=== PATIENT | female | born 1955 | race Two or more races ===

== ENCOUNTER 2020-01-21 08:20 | Outpatient (REF) | payer MEDICARE, SELFPAY ==
[2020-01-21 10:49] LABS: Alanine Aminotransferase 28 U/L (0-31); Albumin Level 4.4 g/dL (3.5-5.0); Alkaline Phosphatase 58 U/L (39-117); Anion Gap 13 (12-20); Aspartate Amino Transferase 24 U/L (5-31); Bilirubin Total < 0.2 mg/dL (0.0-1.0); Blood Urea Nitrogen 29 mg/dL (9-16); Calcium 8.3 mg/dL (8.4-10.2); Carbon Dioxide 25 mmol/L (22-29); Chloride 107 mmol/L (96-108); Estimated Glomerular Filt Rate 58; Glucose Fasting 87 mg/dL (60-99); Sodium 141 mmol/L (135-145); Total Protein 6.8 g/dL (6.5-8.0)
[2020-01-21 11:10] LABS: Free T4 (Free Thyroxine) 0.94 ng/dL (0.71-1.85); Thyroid Stimulating Hormone 2.96 mIU/mL (0.32-4.0); Vitamin B12 305 pg/mL (200-900); Vitamin D 25-OH Total 41.4 ng/mL (>30)
[2020-01-22 22:57] LABS: Calcium (PTHI) 9.1 mg/dL (8.6-10.4); PTHI 12 pg/mL (14-64)
[2020-01-26 21:16] LABS: N-Telopeptide 22 (see note); NTXCreaRU 86 mg/dL (20-275)
== END 2020-01-21 08:21 | disposition home or self-care (01) ==
LOC: HO.10HDL 08:20
PROVIDERS: Visit Provider Internal Medicine Endocrinology, Diabetes & Metabolism
DX: E21.0 Primary hyperparathyroidism (principal); E53.8 Deficiency of other specified B group vitamins; E04.2 Nontoxic multinodular goiter; Z86.39 Personal history of other endocrine, nutritional and metabolic disease
CPT/HCPCS: 80053; 82306; 82523; 82607; 83970; 84439; 84443

== ENCOUNTER → 2020-01-28 12:00 | Outpatient (BNVA) | payer MEDICARE, SELFPAY | PROVIDERS: PCP Internal Medicine; Referring Provider Internal Medicine; Visit Provider Internal Medicine Endocrinology, Diabetes & Metabolism | DX: Z13.89 Encounter for screening for other disorder (principal) | CPT/HCPCS: 99212 ==

== ENCOUNTER 2020-02-06 08:13 | Outpatient (REF) | payer MEDICARE, SELFPAY ==
[2020-02-06 11:42] LABS: Albumin Level 4.3 g/dL (3.5-5.0); Calcium 9.7 mg/dL (8.4-10.2); Magnesium 1.8 mg/dL (1.6-2.6); Phosphorus 4.4 mg/dL (2.7-4.5)
[2020-02-08 11:26] LABS: Calcium (PTHI) 9.9 mg/dL (8.6-10.4); PTHI 3 pg/mL (14-64)
[2020-02-11 12:02] LABS: VITAMIN D (1,25 OH) D3 22 pg/mL; Vit D (1,25-Dihydroxy) Total 22 pg/mL (18-72); Vitamin D (1,25 OH) D2 <8 pg/mL
== END 2020-02-06 08:14 | disposition home or self-care (01) ==
LOC: HO.10HDL 08:13
PROVIDERS: Visit Provider Internal Medicine Endocrinology, Diabetes & Metabolism
DX: Z86.39 Personal history of other endocrine, nutritional and metabolic disease (principal)
CPT/HCPCS: 82040; 82310; 82652; 83735; 83970; 84100

== ENCOUNTER 2020-02-07 13:24 | Outpatient (REF) | payer MEDICARE, SELFPAY ==
[2020-02-07 14:48] LABS: Creatinine, mg/dL 54.43
[2020-02-07 16:04] LABS: Creatinine, 24Hr Urine 0.8 G/Day (1.0-2.0); Total Volume 24 Hour Urine 1425 mL
[2020-02-09 17:16] LABS: Calcium, 24 Hr Urine 265 mg/24 h; Calcium/Creatinine Ratio 321 mg/g creat (30-275); Creatinine 24Hr Urine 0.83 g/24 h (0.50-2.15)
== END 2020-02-07 13:25 | disposition home or self-care (01) ==
LOC: HO.10HDLNP 13:24
PROVIDERS: Visit Provider Internal Medicine Endocrinology, Diabetes & Metabolism
DX: Z86.39 Personal history of other endocrine, nutritional and metabolic disease (principal)
CPT/HCPCS: 82340; 82570

== ENCOUNTER 2020-03-31 08:18 | Outpatient (REF) | payer MEDICARE, MEDICAID, SELFPAY ==
[2020-03-31 10:11] LABS: MANUAL DIFF FLAG NO
[2020-03-31 10:16] LABS: Basophils Percent Auto 0.3 % (0-2); Eosinophils Absolute Auto 0.1 X10*3/uL (0.0-0.4); Eosinophils Percent Auto 2.1 % (0-4); Hematocrit 35.1 % (37-47); Imm Gran Abs Auto 0.02 X10*3/uL (0.00-0.03); Imm Gran Pct Auto 0.3 % (0.0-0.4); Lymphocytes Absolute Auto 2.7 X10*3/uL (1.2-4.9); Lymphocytes Percent Auto 43.7 % (20-40); Mean Corpuscular HGB Conc 31.3 g/dl (31.0-35.0); Mean Corpuscular Hemoglobin 29.5 pg (27.0-33.0); Mean Corpuscular Volume 94.1 fL (80-98); Mean Platelet Volume 12.1 fL (9.4-12.3); Monocytes Absolute Auto 0.4 X10*3/uL (0.1-1.2); Monocytes Percent Auto 6.5 % (2-11); Neutrophils Absolute Auto 2.9 X10*3/uL (2.0-8.3); Neutrophils Percent Auto 47.1 % (45-73); Platelet Count 318 X10*3/uL (160-400); Red Blood Count 3.73 X10*6/uL (4.20-5.50); Red Cell Distribution Width 12.6 % (11.0-16.0); White Blood Count 6.1 X10*3/uL (4.8-10.8)
[2020-03-31 10:31] LABS: Cholesterol 119 mg/dL; HDL Cholesterol 57 mg/dL; LDL Cholesterol Calculated 49 mg/dl; Triglycerides 68 mg/dL
[2020-03-31 10:44] LABS: Alanine Aminotransferase 26 U/L (0-31); Albumin Level 4.6 g/dL (3.5-5.0); Alkaline Phosphatase 59 U/L (39-117); Anion Gap 11 (12-20); Aspartate Amino Transferase 23 U/L (5-31); Bilirubin Total 0.3 mg/dL (0.0-1.0); Blood Urea Nitrogen 25 mg/dL (9-16); Calcium 9.5 mg/dL (8.4-10.2); Carbon Dioxide 28 mmol/L (22-29); Chloride 109 mmol/L (96-108); Estimated Glomerular Filt Rate > 60; Glucose Fasting 89 mg/dL (60-99); Magnesium 1.8 mg/dL (1.6-2.6); Phosphorus 4.2 mg/dL (2.7-4.5); Potassium 4.2 mmol/l (3.3-5.1); Sodium 144 mmol/L (135-145); Total Protein 6.9 g/dL (6.5-8.0)
[2020-03-31 11:07] LABS: Vitamin D 25-OH Total 41.7 ng/mL (>30)
[2020-03-31 13:46] LABS: Folate 10.7 ng/mL (> or = 4.0); Vitamin B12 261 pg/mL (200-900)
[2020-04-01 21:42] LABS: Calcium (PTHI) 9.9 mg/dL (8.6-10.4); PTHI 9 pg/mL (14-64)
[2020-04-05 01:08] LABS: VITAMIN D (1,25 OH) D3 19 pg/mL; Vit D (1,25-Dihydroxy) Total 19 pg/mL (18-72); Vitamin D (1,25 OH) D2 <8 pg/mL
== END 2020-03-31 08:19 | disposition home or self-care (01) ==
LOC: HO.10HDL 08:18
PROVIDERS: Nurse Practitioner Gerontology; Absent Provider Internal Medicine; Visit Provider Internal Medicine Endocrinology, Diabetes & Metabolism
DX: E11.3299 Type 2 diabetes mellitus with mild nonproliferative diabetic retinopathy without macular edema, unspecified eye (principal); E78.00 Pure hypercholesterolemia, unspecified; E21.2 Other hyperparathyroidism; D64.9 Anemia, unspecified; E55.9 Vitamin D deficiency, unspecified; E89.2 Postprocedural hypoparathyroidism
CPT/HCPCS: 36415; 80053; 80061; 82306; 82607; 82652; 82746; 83735; 83970; 84100; 85025

== ENCOUNTER → 2020-04-11 11:32 | Outpatient (BNVA) | payer MEDICARE, SELFPAY | PROVIDERS: PCP Internal Medicine; Referring Provider Internal Medicine; Visit Provider Internal Medicine Endocrinology, Diabetes & Metabolism | DX: Z76.89 Persons encountering health services in other specified circumstances (principal) | CPT/HCPCS: Q3014 ==

== ENCOUNTER 2020-07-21 07:32 | Outpatient (REF) | payer MEDICARE, MEDICAID, SELFPAY ==
[2020-07-21 10:23] LABS: MANUAL DIFF FLAG NO
[2020-07-21 10:35] LABS: Basophils Percent Auto 0.5 % (0-2); Eosinophils Absolute Auto 0.3 X10*3/uL (0.0-0.4); Eosinophils Percent Auto 3.9 % (0-4); Hematocrit 34.3 % (37-47); Hemoglobin 10.8 g/dl (12.0-16.0); Imm Gran Abs Auto 0.01 X10*3/uL (0.00-0.03); Imm Gran Pct Auto 0.2 % (0.0-0.4); Lymphocytes Absolute Auto 2.9 X10*3/uL (1.2-4.9); Lymphocytes Percent Auto 45.6 % (20-40); Mean Corpuscular HGB Conc 31.5 g/dl (31.0-35.0); Mean Corpuscular Hemoglobin 29.5 pg (27.0-33.0); Mean Corpuscular Volume 93.7 fL (80-98); Mean Platelet Volume 11.4 fL (9.4-12.3); Monocytes Absolute Auto 0.5 X10*3/uL (0.1-1.2); Monocytes Percent Auto 7.6 % (2-11); Neutrophils Absolute Auto 2.7 X10*3/uL (2.0-8.3); Neutrophils Percent Auto 42.2 % (45-73); Platelet Count 358 X10*3/uL (160-400); Red Blood Count 3.66 X10*6/uL (4.20-5.50); Red Cell Distribution Width 13.2 % (11.0-16.0); White Blood Count 6.3 X10*3/uL (4.8-10.8)
[2020-07-21 11:04] LABS: Alanine Aminotransferase 18 U/L (0-31); Albumin Level 4.5 g/dL (3.5-5.0); Alkaline Phosphatase 55 U/L (39-117); Anion Gap 12 (12-20); Aspartate Amino Transferase 21 U/L (5-31); Bilirubin Total 0.5 mg/dL (0.0-1.0); Blood Urea Nitrogen 23 mg/dL (9-16); Calcium 9.6 mg/dL (8.4-10.2); Carbon Dioxide 27 mmol/L (22-29); Chloride 108 mmol/L (96-108); Cholesterol 177 mg/dL; Estimated Glomerular Filt Rate > 60; Glucose Fasting 90 mg/dL (60-99); HDL Cholesterol 67 mg/dL; Iron 72 mcg/dL (30-160); LDL Cholesterol Calculated 93 mg/dl; Lactate Dehydrogenase 134 U/L (122-220); Magnesium 1.9 mg/dL (1.6-2.6); Percent Iron Saturation 23 % (15-50); Phosphorus 4.6 mg/dL (2.7-4.5); Potassium 4.2 mmol/L (3.3-5.1); Sodium 143 mmol/L (135-145); Total Iron Binding Capacity 310 mcg/dL (228-428); Total Protein 6.8 g/dL (6.5-8.0); Triglycerides 88 mg/dL; Unsaturated Iron Binding 238 ug/dL
[2020-07-21 11:11] LABS: TSH reflex Free T4 2.94 uIU/mL (0.32-4.0)
[2020-07-21 11:23] LABS: Vitamin D 25-OH Total 40.1 ng/mL (>30)
[2020-07-21 11:30] LABS: Folate 12.8 ng/mL (> or = 4.0); Vitamin B12 187 pg/mL (200-900)
[2020-07-25 16:17] LABS: VITAMIN D (1,25 OH) D3 12 pg/mL; Vit D (1,25-Dihydroxy) Total 12 pg/mL (18-72); Vitamin D (1,25 OH) D2 <8 pg/mL
== END 2020-07-21 07:33 | disposition home or self-care (01) ==
LOC: HO.10HDL 07:32
PROVIDERS: Absent Provider Internal Medicine Endocrinology, Diabetes & Metabolism; Visit Provider Internal Medicine
DX: E53.8 Deficiency of other specified B group vitamins (principal); E11.9 Type 2 diabetes mellitus without complications; E78.5 Hyperlipidemia, unspecified; E89.2 Postprocedural hypoparathyroidism; E04.2 Nontoxic multinodular goiter
CPT/HCPCS: 36415; 80053; 80061; 82306; 82607; 82652; 82746; 83540; 83615; 83735; 84100; 84443; 85025

== ENCOUNTER → 2020-07-25 09:16 | Outpatient (BNVA) | payer MEDICARE, MEDICAID, SELFPAY | PROVIDERS: PCP Internal Medicine; Visit Provider Internal Medicine Endocrinology, Diabetes & Metabolism | DX: E89.2 Postprocedural hypoparathyroidism (principal); M81.0 Age-related osteoporosis without current pathological fracture; E04.2 Nontoxic multinodular goiter; E53.8 Deficiency of other specified B group vitamins; Z86.39 Personal history of other endocrine, nutritional and metabolic disease | CPT/HCPCS: 99212 ==

== ENCOUNTER 2020-09-05 09:41 | Outpatient (REF) | payer MEDICARE, MEDICAID, SELFPAY ==
[2020-09-05 13:45] LABS: Glucose Urine UA NEG (NEG); Leukocyte Esterase Urine NEG (NEG); Nitrite Urine POS (NEG); PH 7.5 (5.0-8.0); UACC Culture Trigger YES; Urine Blood NEG (NEG); Urine Ketones NEG (NEG); Urine Protein NEG (NEG-TRACE)
[2020-09-05 13:55] LABS: Appearance Urine CLOUDY; Color Urine YELLOW
[2020-09-05 14:24] LABS: Amorphous Sediment Urine 1+ /LPF; RBC Urine 0-2 /HPF (0)
== END 2020-09-05 09:42 | disposition home or self-care (01) ==
LOC: HO.10HDL 09:41
PROVIDERS: Internal Medicine; Visit Provider Internal Medicine
DX: R30.0 Dysuria (principal)
CPT/HCPCS: 81001; 81003; 87086

== ENCOUNTER 2020-10-02 08:54 | Outpatient (REF) | payer MEDICARE, MEDICAID, SELFPAY ==
[2020-10-02 11:01] LABS: Alanine Aminotransferase 17 U/L (0-31); Albumin Level 4.3 g/dL (3.5-5.0); Alkaline Phosphatase 57 U/L (39-117); Anion Gap 12 (12-20); Aspartate Amino Transferase 21 U/L (5-31); Bilirubin Total 0.4 mg/dL (0.0-1.0); Blood Urea Nitrogen 19 mg/dL (9-16); Calcium 9.1 mg/dL (8.4-10.2); Carbon Dioxide 23 mmol/L (22-29); Chloride 112 mmol/L (96-108); Estimated Glomerular Filt Rate > 60; Glucose Fasting 87 mg/dL (60-99); Phosphorus 3.8 mg/dL (2.7-4.5); Potassium 4.4 mmol/L (3.3-5.1); Sodium 143 mmol/L (135-145); Total Protein 6.7 g/dL (6.5-8.0)
[2020-10-02 16:09] LABS: Creatinine, 24Hr Urine 0.7 G/Day (1.0-2.0); Total Volume 24 Hour Urine 1750 mL
[2020-10-03 23:56] LABS: Calcium, 24 Hr Urine 74 mg/24 h; Calcium/Creatinine Ratio 95 mg/g creat (30-275); Creatinine 24Hr Urine 0.77 g/24 h (0.50-2.15)
[2020-10-06 09:32] LABS: PTHI 23 pg/mL (14-64)
[2020-10-07 02:46] LABS: VITAMIN D (1,25 OH) D3 36 pg/mL; Vit D (1,25-Dihydroxy) Total 36 pg/mL (18-72); Vitamin D (1,25 OH) D2 <8 pg/mL
== END 2020-10-02 08:55 | disposition home or self-care (01) ==
LOC: HO.10HDL 08:54
PROVIDERS: Visit Provider Internal Medicine Endocrinology, Diabetes & Metabolism
DX: E89.2 Postprocedural hypoparathyroidism (principal); E04.2 Nontoxic multinodular goiter; E53.8 Deficiency of other specified B group vitamins; M81.8 Other osteoporosis without current pathological fracture; Z86.39 Personal history of other endocrine, nutritional and metabolic disease
CPT/HCPCS: 36415; 80053; 82306; 82340; 82570; 82652; 83735; 83970; 84100; 99212

== ENCOUNTER 2020-12-01 08:19 | Outpatient (REF) | payer MEDICARE, MEDICAID, SELFPAY ==
[2020-12-01 10:53] LABS: MANUAL DIFF FLAG NO
[2020-12-01 11:01] LABS: Basophils Percent Auto 0.5 % (0-2); Eosinophils Absolute Auto 0.1 X10*3/uL (0.0-0.4); Eosinophils Percent Auto 1.4 % (0-4); Hematocrit 35.1 % (37-47); Hemoglobin 11.3 g/dl (12.0-16.0); Imm Gran Abs Auto 0.02 X10*3/uL (0.00-0.03); Imm Gran Pct Auto 0.3 % (0.0-0.4); Lymphocytes Absolute Auto 2.3 X10*3/uL (1.2-4.9); Lymphocytes Percent Auto 39.9 % (20-40); Mean Corpuscular HGB Conc 32.2 g/dl (31.0-35.0); Mean Corpuscular Hemoglobin 29.4 pg (27.0-33.0); Mean Corpuscular Volume 91.4 fL (80-98); Monocytes Absolute Auto 0.4 X10*3/uL (0.1-1.2); Monocytes Percent Auto 6.3 % (2-11); Neutrophils Percent Auto 51.6 % (45-73); Platelet Count 305 X10*3/uL (160-400); Red Blood Count 3.84 X10*6/uL (4.20-5.50); Red Cell Distribution Width 12.8 % (11.0-16.0); White Blood Count 5.8 X10*3/uL (4.8-10.8)
[2020-12-01 11:26] LABS: Cholesterol 114 mg/dL; HDL Cholesterol 54 mg/dL; LDL Cholesterol Calculated 48 mg/dl; Triglycerides 60 mg/dL
[2020-12-01 11:31] LABS: Creatinine Urine 343.48 mg/dL; Microalbum/Creatinine Ratio Ur 8.1 ug/mg cr
[2020-12-01 11:49] LABS: Thyroid Stimulating Hormone 1.47 uIU/mL (0.32-4.0)
[2020-12-01 11:56] LABS: Vitamin B12 878 pg/mL (200-900)
[2020-12-04 11:27] LABS: Parietal Cell Antibody <=20.0 Unit (<=20.0)
[2020-12-04 17:42] LABS: Intrinsic Factor Antibodies Negative (Negative)
[2020-12-07 16:01] LABS: Vitamin D 25-OH, D2 <4 ng/mL; Vitamin D 25-OH, D3 33 ng/mL; Vitamin D 25-OH, Total 33 ng/mL (30-100)
== END 2020-12-01 08:20 | disposition home or self-care (01) ==
LOC: HO.10HDL 08:19
PROVIDERS: Visit Provider Internal Medicine
DX: E53.8 Deficiency of other specified B group vitamins (principal); E55.9 Vitamin D deficiency, unspecified; R41.89 Other symptoms and signs involving cognitive functions and awareness; E11.9 Type 2 diabetes mellitus without complications; E78.5 Hyperlipidemia, unspecified; D64.9 Anemia, unspecified
CPT/HCPCS: 36415; 80061; 82043; 82306; 82607; 82746; 83516; 84443; 85025; 86340

== ENCOUNTER 2020-12-19 11:12 | Outpatient (REF) | payer MEDICARE, MEDICAID, SELFPAY ==
[2020-12-19 14:37] LABS: Thyroid Stimulating Hormone 1.78 uIU/mL (0.32-4.0)
[2020-12-19 15:15] LABS: Folate 10.4 ng/mL (> or = 4.0); Vitamin B12 555 pg/mL (200-900)
== END 2020-12-19 11:13 | disposition home or self-care (01) ==
LOC: HO.10HDL 11:12
PROVIDERS: Visit Provider Psychiatry & Neurology Neurology
DX: G43.909 Migraine, unspecified, not intractable, without status migrainosus (principal)
CPT/HCPCS: 36415; 82607; 82746; 84443

== ENCOUNTER 2020-12-24 13:29 | Outpatient (REF) | payer MEDICARE, MEDICAID, SELFPAY ==
--- NOTE | ~2020-12-24 | CT_ITS ---
EXAMINATION: CT HEAD WITHOUT CONTRAST CLINICAL INFORMATION: Mild cognitive abdomen COMPARISON: Previous head CT October 2016 and brain MRI 2017 TECHNIQUE: Contiguous axial imaging was performed from the skull base to vertex without intravenous administration of contrast. This CT examination was performed using dose optimization techniques as appropriate, variously including the following: *Automated exposure control *Adjustment of mA and/or kV according to patient size (this includes techniques or standardized protocols for targeted exams where dose is matched to indication/reason for exam; i.e. extremities or head) *Use of iterative reconstruction technique DLP: 630 mGy-cm FINDINGS: There is no evidence of an extra-axial collection. There is no evidence of intra or extra-axial hemorrhage. The ventricles and extra-axial CSF spaces are appropriate. There is mild nonspecific periventricular white matter disease. No mass, mass effect or infarct is seen. Review of bone windows is normal. Visualized paranasal sinuses, mastoid air cells and middle ears are clear. CT/CT head/brain wo con IMPRESSION: Mild nonspecific periventricular white matter disease otherwise unremarkable exam.
== END 2020-12-24 13:30 | disposition home or self-care (01) ==
LOC: HO.CT 13:29
PROVIDERS: Visit Provider Psychiatry & Neurology Neurology
DX: G31.84 Mild cognitive impairment of uncertain or unknown etiology (principal)
CPT/HCPCS: 70450

== ENCOUNTER 2021-02-16 10:28 | Outpatient (REF) | payer MEDICARE, MEDICAID, SELFPAY ==
--- NOTE | ~2021-02-16 | MM_ITS ---
EXAMINATION: MM SCREENING DIGITAL BREAST TOMOSYNTHESIS, BILATERAL CLINICAL INFORMATION: Screening. Asymptomatic. The lifetime risk of breast cancer based on the Tyrer-Cuzick Model is 5%. COMPARISON: Mammography: 12/19/2018, 11/30/2017, 11/15/2016 TECHNIQUE: Digital breast tomosynthesis is performed in both the craniocaudal and mediolateral oblique views along with computer-aided detection (CAD). Synthesized 2D images are generated from the tomosynthesis. Additional right MLO view is provided. FINDINGS: There are scattered areas of fibroglandular density (ACR BI-RADS breast composition Category b). There are no significant masses, abnormal calcifications, or other abnormalities. The axilla and skin contours are unremarkable. No significant changes. MM/MM tomosynthesis screening BI IMPRESSION: No mammographic evidence of malignancy. ASSESSMENT: BI-RADS 1: Negative RECOMMENDATION: Routine annual mammography screening. This patient's information was entered into a reminder system with a target due date for their next mammogram.
== END 2021-02-16 10:29 | disposition home or self-care (01) ==
LOC: HO.MAMMO 10:28
PROVIDERS: Visit Provider Internal Medicine
DX: Z12.31 Encounter for screening mammogram for malignant neoplasm of breast (principal)
CPT/HCPCS: 77063; 77067

== ENCOUNTER → 2021-02-20 09:53 | Outpatient (BNVA) | payer MEDICARE, MEDICAID, SELFPAY | PROVIDERS: PCP Internal Medicine; Referring Provider Internal Medicine; Visit Provider Nurse Practitioner Family | DX: M89.49 Other hypertrophic osteoarthropathy, multiple sites (principal); M79.642 Pain in left hand; M79.641 Pain in right hand | CPT/HCPCS: 99212 ==

== ENCOUNTER 2021-04-16 08:15 | Outpatient (REF) | payer MEDICARE, MEDICAID, SELFPAY ==
[2021-04-16 10:49] LABS: Alanine Aminotransferase 17 U/L (0-31); Albumin Level 4.5 g/dL (3.5-5.0); Alkaline Phosphatase 65 U/L (39-117); Anion Gap 11 (12-20); Aspartate Amino Transferase 22 U/L (5-31); Bilirubin Total 0.5 mg/dL (0.0-1.0); Blood Urea Nitrogen 22 mg/dL (9-16); Calcium 9.5 mg/dL (8.4-10.2); Carbon Dioxide 25 mmol/L (22-29); Chloride 108 mmol/L (96-108); Cholesterol 142 mg/dL; Estimated Glomerular Filt Rate > 60; Glucose Fasting 93 mg/dL (60-99); HDL Cholesterol 57 mg/dL; LDL Cholesterol Calculated 66 mg/dl; Sodium 140 mmol/L (135-145); Total Protein 7.3 g/dL (6.5-8.0); Triglycerides 98 mg/dL
[2021-04-17 14:07] LABS: Calcium (PTHI) 9.6 mg/dL (8.6-10.4); PTHI 19 pg/mL (14-64)
== END 2021-04-16 08:16 | disposition home or self-care (01) ==
LOC: HO.10HDL 08:15
PROVIDERS: Absent Provider Internal Medicine Endocrinology, Diabetes & Metabolism; Visit Provider Internal Medicine
DX: I10 Essential (primary) hypertension (principal); E78.5 Hyperlipidemia, unspecified; E89.2 Postprocedural hypoparathyroidism
CPT/HCPCS: 36415; 80053; 80061; 83970

== ENCOUNTER → 2021-07-03 07:53 | Outpatient (BNVA) | payer MEDICARE, MEDICAID, SELFPAY | PROVIDERS: PCP Internal Medicine; Visit Provider Internal Medicine Endocrinology, Diabetes & Metabolism | DX: E89.2 Postprocedural hypoparathyroidism (principal); E04.2 Nontoxic multinodular goiter | CPT/HCPCS: 99212 ==

== ENCOUNTER 2021-07-13 10:17 | Outpatient (REF) | payer MEDICARE, MEDICAID, SELFPAY ==
--- NOTE | ~2021-07-13 | US_ITS ---
EXAMINATION: US THYROID CLINICAL INFORMATION: Nontoxic multinodular goiter. COMPARISON: US thyroid 10/30/2019 and 09/18/2018. US-guided thyroid biopsy 11/03/2017. TECHNIQUE: Linear transducer grayscale and color Doppler examination with attention to the region of the thyroid. FINDINGS: SIZE: Measurements of the thyroid lobes and nodules are given in sagittal, anteroposterior and transverse dimensions respectively. Right Thyroid Lobe: 5.9 x 1.6 x 1.8 cm, volume 8.6 mL. Previously 5.0 x 1.6 x 1.7 cm, volume 7.1 mL. Parenchyma: The gland echotexture is homogeneous. Thyroid vascularity is normal. Left Thyroid Lobe: 4.8 x 1.5 x 1.9 cm, volume 7.4 mL. Previously 5.0 x 1.4 x 1.9 cm, volume 6.9 mL. Parenchyma: The gland echotexture is homogeneous. Thyroid vascularity is normal. Isthmus: 0.2 cm in maximum AP dimension. Previously 0.2 cm. Estimated total number of nodules greater than or equal to 1 cm: 1. [employer] nodules are described as follows: 1. Location: Right mid/inferior. Size: 1.2 x 0.9 x 1.1 cm, volume 0.7 mL. Previously: 0.9 x 0.7 x 1.0 cm, volume 0.3 mL. Nodule characteristics: Composition: Solid/almost completely solid (2). Echogenicity: Hypoechoic (2). Shape: Not taller than wide (0). Margins: Ill-defined (0). Echogenic Foci: None (0). ACR TI-RADS total points: 4 ACR TI-RADS category: 4 2. Location: Right mid/lateral. Size: 0.5 x 0.5 x 0.5 cm, volume 0.07 mL. Previously: 0.6 x 0.4 x 0.5 cm, volume 0.06 mL. Nodule characteristics: Composition: Solid (2). Echogenicity: Hypoechoic (2). Shape: Not taller than wide (0). Margins: Ill-defined (0). Echogenic Foci: None (0). ACR TI-RADS total points: 4 ACR TI-RADS category: 4 3. Location: Left mid. Size: 0.5 x 0.3 x 0.3 cm, volume 0.02 mL. Previously: 0.5 x 0.2 x 0.5 cm, volume 0.03 mL. Nodule characteristics: Composition: Spongiform (0). Echogenicity: Anechoic (0). Shape: Not taller than wide (0). Margins: Smooth (0). Echogenic Foci: None (0). ACR TI-RADS total points: 0 ACR TI-RADS category: 1 4. Location: Left mid. Size: 0.5 x 0.2 x 0.4 cm, volume 0.02 mL. Previously: 0.6 x 0.3 x 0.4 cm, volume 0.04 mL. Nodule characteristics: Composition: Spongiform (0). Echogenicity: Anechoic (0). Shape: Not taller than wide (0). Margins: Smooth (0). Echogenic Foci: None (0). ACR TI-RADS total points: 0 ACR TI-RADS category: 1 NODES: No lymphadenopathy is seen in the tissue surrounding the thyroid gland. US/US thyroid IMPRESSION: There has been no significant change in thyroid nodules allowing for interobserver variability. The largest is a 1.2 cm nodule ACR do not category 4. Continued surveillance recommended.. One-year follow-up.. ACR TI-RADS RECOMMENDATION REFERENCE: Ultrasound-guided fine-needle aspiration, followup ultrasound, no further follow up. * TR1 (0 point) and TR 2 (2 points): No FNA or follow up * TR3 (3 points): FNA if more than or equal to 2.5 cm in maximum dimension, followup ultrasound in 1, 3 and 5 years if 1.5 to 2.4 cm in maximum dimension. * TR4 (4-6 points): FNA if more than or equal to 1.5 cm in maximum dimension, followup ultrasound in 1, 2, 3 and 5 years if 1 to 1.4 cm in maximum dimension. * TR5 (more than or equal to 7 points): FNA if more than or equal to 1 cm in maximum dimension, followup ultrasound every year for 5 years if 0.5 to 0.9 cm in maximum dimension. * TR3, TR4 or TR5 nodules that are below the size threshold for follow up receive no follow up.
== END 2021-07-13 10:18 | disposition home or self-care (01) ==
LOC: HO.US 10:17
PROVIDERS: Visit Provider Internal Medicine Endocrinology, Diabetes & Metabolism
DX: E04.2 Nontoxic multinodular goiter (principal)
CPT/HCPCS: 76536

== ENCOUNTER 2021-11-05 09:13 | Emergency (ER) | payer MEDICARE, MEDICAID, SELFPAY ==
--- NOTE | ~2021-11-05 | NM_ITS ---
EXAMINATION: NM LUNG IMAGE PERFUSION CLINICAL INFORMATION: Recent Covid with elevated d-dimer COMPARISON: Chest x-ray same day TECHNIQUE: Perfusion imaging only. 4 mCi technetium MAA injected intravenously. Images obtained over the lung amado in various obliquities. Exam shows fairly uniform distribution of the radionucleotide in the lungs. No segmental defect is felt to be present. NM/NM pul perfusion IMPRESSION: No segmental perfusion defect. Findings consistent with low probability for pulmonary embolism
--- NOTE | ~2021-11-05 | XR_ITS ---
EXAMINATION: XR CHEST CLINICAL INFORMATION: Cough COMPARISON: 05/19/2017 TECHNIQUE: 2 views of the chest were obtained. FINDINGS: No significant abnormality is noted involving the heart, lungs, mediastinum, bony thorax or soft tissues. XR/XR chest 2V IMPRESSION: Unremarkable examination.
[2021-11-05 09:36] VITALS: BP 133/88; PULSE 96; RESP 16; TEMP 36.7; O2SAT 98; BMI 25.4
[2021-11-05 11:16] VITALS: BP 145/70; PULSE 66; RESP 18; O2SAT 100
--- NOTE | 2021-11-05 11:28 | ECG_ITS ---
Test Reason : dyspnea Blood Pressure : / mmHG Vent. Rate : 071 BPM Atrial Rate : 071 BPM P-R Int : 166 ms QRS Dur : 088 ms QT Int : 390 ms P-R-T Axes : 024 008 029 degrees QTc Int : 423 ms Normal sinus rhythm Normal ECG When compared with ECG of 25-APR-2019 09:30, No significant change was found Referred By: Jacques Medina Electronically Signed By:CLEO RUIZ
[2021-11-05 11:51] LABS: MANUAL DIFF FLAG NO
[2021-11-05 11:57] LABS: Basophils Percent Auto 0.3 % (0-2); Eosinophils Absolute Auto 0.2 X10*3/uL (0.0-0.4); Eosinophils Percent Auto 2.7 % (0-4); Hematocrit 36.8 % (37.0-47.0); Hemoglobin 11.8 g/dl (12.0-16.0); Imm Gran Abs Auto 0.04 X10*3/uL (0.00-0.03); Imm Gran Pct Auto 0.7 % (0.0-0.4); Lymphocytes Absolute Auto 1.9 X10*3/uL (1.2-4.9); Mean Corpuscular HGB Conc 32.1 g/dl (31.0-35.0); Mean Corpuscular Hemoglobin 29.5 pg (27.0-33.0); Mean Platelet Volume 10.7 fL (9.4-12.3); Monocytes Absolute Auto 0.5 X10*3/uL (0.1-1.2); Monocytes Percent Auto 8.8 % (2-11); Neutrophils Absolute Auto 3.2 x10*3/uL (2.0-8.3); Neutrophils Percent Auto 54.5 % (45-73); Platelet Count 350 X10*3/uL (160-400); Red Cell Distribution Width 12.3 % (11.0-16.0); White Blood Count 5.8 X10*3/uL (4.8-10.8)
[2021-11-05 12:07] LABS: Partial Thromboplastin Time 31.9 SEC (26.0-36.4)
--- NOTE | 2021-11-05 12:08 | ED.GENADULT ---
HPI - General Adult General Chief complaint: Dyspnea Stated complaint: cough, diff breathing Time Seen by Provider: 11/05/21 11:27 Source: patient Mode of arrival: ambulatory Limitations: no limitations History of Present Illness HPI narrative: 66-year-old female history of hypertension, diabetes, B12 deficiency, multi noted a goiter, osteoporosis, depression presents to ED for continuous cough, yellow phlegm production, and slight left-sided upper flank pleurisy for the past two weeks. Patient states also left-sided chest pain worse on cough. Patient denies any leg swelling, calf pain, or coughing up blood. Patient tested positive for covid 2 weeks ago. Related Data Home Medications Medication Instructions Recorded Confirmed ipratropium bromide 21 mcg (0.03 intranasal 01/28/20 08/26/21 %) nasal spray ropinirole 1 mg tablet 1 mg PO DAILY 04/11/20 08/26/21 sucralfate 1 gram tablet 1 g PO DAILY 04/11/20 08/26/21 albuterol sulfate 90 mcg/actuation inhalation 07/25/20 08/26/21 aerosol inhaler epinephrine 0.3 mg/0.3 mL IM 07/25/20 08/26/21 injection, auto-injector fluticasone propionate 50 intranasal 07/25/20 08/26/21 mcg/actuation nasal spray,suspension hydroxyzine HCl 25 mg tablet mg PO PRN 02/20/21 08/26/21 ondansetron HCl 4 mg tablet 4 mg PO PRN 02/20/21 08/26/21 Previous Rx's Medication Instructions Recorded blood sugar diagnostic (FreeStyle #100 ea 12/04/20 Test strips) lancets 28 gauge (FreeStyle #100 ea 12/04/20 Lancets) acetaminophen 650 mg 650 mg PO Q8H #90 tabs 02/20/21 tablet,extended release (Tylenol Arthritis Pain) amitriptyline 25 mg tablet 25 mg PO DAILY 90 days #90 tabs 08/26/21 atorvastatin 80 mg tablet 80 mg PO DAILY 90 days #90 tabs 08/26/21 calcitriol 0.25 mcg capsule 0.25 mcg PO DAILY 90 days #90 caps 08/26/21 cyanocobalamin (vitamin B-12) 500 500 mcg sublingual DAILY 90 days 08/26/21 mcg sublingual tablet #90 tabs duloxetine 30 mg capsule,delayed 30 mg PO BID 90 days #180 caps 08/26/21 release ezetimibe 10 mg tablet 10 mg PO DAILY 90 days #90 tabs 08/26/21 gabapentin 100 mg capsule 100 mg PO BID 90 days #180 caps 08/26/21 losartan 25 mg tablet 25 mg PO DAILY 90 days #90 tabs 08/26/21 meclizine 25 mg tablet 25 mg PO DAILY PRN dizziness 90 08/26/21 days #90 tabs metformin 500 mg tablet,extended 500 mg PO BID #180 tabs 08/26/21 release 24 hr topiramate 100 mg tablet 100 mg PO BID 90 days #180 tabs 08/26/21 calcium citrate 315 mg-vitamin D3 2 tab PO DAILY 30 days #60 tabs 09/17/21 5 mcg (200 unit) tablet (Calcium Citrate + D) hydrochlorothiazide 25 mg tablet 25 mg PO DAILY 90 days #90 tabs 10/28/21 acetaminophen 325 mg-DM 10 mg/10 20 ml PO Q4H PRN cold symptoms 7 11/05/21 mL oral liquid (Delsym Cough-Sore days #180 mL Throat) Allergies Allergy/AdvReac Type Severity Reaction Status Date / Time Iodinated Contrast Media Allergy Severe ANAPHYLAXIS Verified 08/26/21 14:57 [IV CONTRAST] peanut Allergy Severe CAN'T Verified 08/26/21 14:57 BREATHE iodine Allergy Intermediate throat Verified 08/26/21 14:57 swelling lisinopril [LISINOPRIL] Allergy Intermediate COUGH, Verified 08/26/21 14:57 coughing gadobutrol [From GADAVIST] Allergy Mild HIVES Verified 08/26/21 14:57 tramadol [TRAMADOL] AdvReac Severe VOMITING Verified 08/26/21 14:57 pseudoephedrine AdvReac Intermediate HEART Verified 08/26/21 14:57 [PSEUDOEPHEDRINE] PALPITATIONS Review of Systems Review of Systems: Continuous cough, chest pain when she cough, slight pleurisy. Yes all other systems are reviewed and are negative [facility] Past Medical History Medical History B12 deficiency Cognitive impairment Diabetes mellitus Dyslipidemia Encounter for Medicare annual wellness exam Essential hypertension History of primary hyperparathyroidism Mild recurrent major depression Non-toxic multinodular goiter Osteoporosis Post-surgical hypoparathyroidism Skin lesion Surgical History S/P subtotal parathyroidectomy Status post fine needle aspiration Family History Family History Father CVD (cardiovascular disease) Myocardial infarct Mother Skin cancer Diabetes Social History Social History Housing: Apartment Alcohol intake: never Patient Tobacco Use Status: Never used Tobacco Tobacco use type: Cigarette e-Cigarette/Vaping Use: Never Used Second Hand Smoke Exposure: No Advance Directives: No Advance Directives Information Provided: No service: No Current occupational status: disabled Cognitive needs: Yes Hearing needs: No Vision needs: No Physical Exam ED Vital Signs: Vital Signs - 24 hr 11/05/21 09:36 11/05/21 11:16 11/05/21 14:17 Temperature 98.0 F Pulse Rate 96 66 64 Respiratory Rate 16 18 16 Blood Pressure 133/88 145/70 H 138/65 Pulse Oximetry 98 100 99 Oxygen Delivery Method Room Air Room Air Room Air BMI result Body Mass Index 25.4 Const General: cooperative, healthy appearing, comfortable, no acute distress, well developed, alert, awake and Physically active Orientation/consciousness: patient oriented x3 HENMT Head: Yes normal to inspection, Yes No palpable skull fracture present, Yes normocephalic, Yes atraumatic and No abrasion Eyes General: appearance normal, both eyes and all related structures Neck Neck: Yes normal visual inspection, Yes full ROM, Yes no lymphadenopathy, Yes no meningeal signs, Yes trachea midline, Yes supple, No anterior neck swelling and No tender Chest Chest palpation & inspection: normal inspection of the chest Chest/axillae images: 1. Positive for tenderness on palpation and range of motion of left upper extremity. Negative for any rash. Negative for crepitus ecchymosis Resp Effort & Inspection: normal respiratory effort and able to speak in complete sentences Auscultation: clear to auscultation bilaterally Cardio Jugular venous distension: no JVD Heart sounds: S1 normal heart sound present and S2 normal heart sound present GI Inspection: Yes normal to inspection and No abdominal wall ecchymosis Palpation (GI): Soft to palpation, not firm, nontender, no guarding and not rigid General: No CVA tenderness and Yes no CVA tenderness Back/Spine/Pelvis Back: no CVA tenderness, No CVA tenderness and No back tenderness Back/spine/pelvis image: 1. Left upper flank tenderness on palpation and pleurisy. Negative for crepitus, ecchymosis, or deformity. Negative erythema around Skin General skin exam: no rashes or lesions noted and elasticity normal Neuro General: patient oriented x3, gait normal, no meningeal signs and CN's II-XI intact bilaterally Cranial nerves: Yes CN's II-XII intact bilaterally Extrem Other: Lower extremities negative for swelling, pitting edema, or calf tenderness General: Yes normal to inspection and Yes full ROM Psych Appearance: grossly normal, well kempt and not disheveled Course Course Course Narrative: Patient x-ray came back normal which was ordered in triage. Due to patient age with 2 weeks of coughing with chest pain will do EKG 1 troponin. Due to patient states slight pleurisy for the past 3 days will do D-dimer think should patient not risk of PE Reevaluation(s) Reevaluation #1: EKG negative STEMI. Two troponins negative. Patient was sent for nuclear scan due to slightly elevated D-dimer with recent COVID diagnosis and pleurisy. Not able to do the CT scan with IV contrast due to patient's anaphylactic reaction to IV contrast. Nuclear scan negative for PE. History physical exam labs not indicate CHF exacerbation or pneumonia. Diagnosis COVID long haul. Patient informed to follow-up with primary care provider for referral to pulmonology. Time: 15:54 Medical Decision Making [facility] Narrative Medical decision making narrative: COVID long-haul symptoms Lab Data Result diagrams: 11/05/21 11:47 11/05/21 11:47 Labs: Lab Results 11/05/21 11/05/21 11/05/21 Range/Units 11:47 11:47 11:47 WBC 5.8 (4.8-10.8) X10*3/uL RBC 4.00 L (4.20-5.50) X10*6/uL Hgb 11.8 L (12.0-16.0) g/dl Hct 36.8 L (37.0-47.0) % MCV 92.0 (80.0-98.0) fL MCH 29.5 (27.0-33.0) pg MCHC 32.1 (31.0-35.0) g/dl RDW 12.3 (11.0-16.0) % Plt Count 350 (160-400) X10*3/uL MPV 10.7 (9.4-12.3) fL Immature Gran % (Auto) 0.7 H (0.0-0.4) % Neut % (Auto) 54.5 (45-73) % Lymph % (Auto) 33.0 (20-40) % [place] % (Auto) 8.8 (2-11) % Eos % (Auto) 2.7 (0-4) % Baso % (Auto) 0.3 (0-2) % Lymph # (Auto) 1.9 (1.2-4.9) X10*3/uL [place] # (Auto) 0.5 (0.1-1.2) X10*3/uL Eos # (Auto) 0.2 (0.0-0.4) X10*3/uL Baso # (Auto) 0.0 (0.0-0.2) X10*3/uL Abs Immat Gran (auto) 0.04 H (0.00-0.03) X10*3/uL Absolute Neuts (auto) 3.2 (2.0-8.3) x10*3/uL Absolute Nucleated RBC 0.000 (0.0-0.012) X10*3/uL Nucleated RBC % (auto) 0.0 (0.0-0.2) /100WBC PT 11.0 (10.0-13.1) SEC INR 1.0 (0.9-1.1) APTT 31.9 (26.0-36.4) SEC D-Dimer High Sensitivty 306 NG/ML Sodium 144 (135-145) mmol/L Potassium 4.3 (3.3-5.1) mmol/L Chloride 109 H (96-108) mmol/L Carbon Dioxide 26 (22-29) mmol/L Anion Gap 13 (12-20) BUN 16 (9-16) mg/dL Creatinine 0.85 (0.5-1.4) mg/dL Estim Creat Clear Calc 53.9 Estimated GFR > 60 Random Glucose 125 H (60-115) mg/dL Calcium 9.3 (8.4-10.2) mg/dL Total Bilirubin 0.2 (0.0-1.0) mg/dL AST 30 (5-31) U/L ALT 35 H (0-31) U/L Alkaline Phosphatase 67 (39-117) U/L Troponin I High Sens (<3.5-17.0) ng/L B-Natriuretic Peptide (<100) pg/mL Total Protein 6.9 (6.5-8.0) g/dL Albumin 4.3 (3.5-5.0) g/dL 11/05/21 11/05/21 Range/Units 11:47 14:25 WBC (4.8-10.8) X10*3/uL RBC (4.20-5.50) X10*6/uL Hgb (12.0-16.0) g/dl Hct (37.0-47.0) % MCV (80.0-98.0) fL MCH (27.0-33.0) pg MCHC (31.0-35.0) g/dl RDW (11.0-16.0) % Plt Count (160-400) X10*3/uL MPV (9.4-12.3) fL Immature Gran % (Auto) (0.0-0.4) % Neut % (Auto) (45-73) % Lymph % (Auto) (20-40) % [place] % (Auto) (2-11) % Eos % (Auto) (0-4) % Baso % (Auto) (0-2) % Lymph # (Auto) (1.2-4.9) X10*3/uL [place] # (Auto) (0.1-1.2) X10*3/uL Eos # (Auto) (0.0-0.4) X10*3/uL Baso # (Auto) (0.0-0.2) X10*3/uL Abs Immat Gran (auto) (0.00-0.03) X10*3/uL Absolute Neuts (auto) (2.0-8.3) x10*3/uL Absolute Nucleated RBC (0.0-0.012) X10*3/uL Nucleated RBC % (auto) (0.0-0.2) /100WBC PT (10.0-13.1) SEC INR (0.9-1.1) APTT (26.0-36.4) SEC D-Dimer High Sensitivty NG/ML Sodium (135-145) mmol/L Potassium (3.3-5.1) mmol/L Chloride (96-108) mmol/L Carbon Dioxide (22-29) mmol/L Anion Gap (12-20) BUN (9-16) mg/dL Creatinine (0.5-1.4) mg/dL Estim Creat Clear Calc Estimated GFR Random Glucose (60-115) mg/dL Calcium (8.4-10.2) mg/dL Total Bilirubin (0.0-1.0) mg/dL AST (5-31) U/L ALT (0-31) U/L Alkaline Phosphatase (39-117) U/L Troponin I High Sens < 3.5 4.5 (<3.5-17.0) ng/L B-Natriuretic Peptide 42 (<100) pg/mL Total Protein (6.5-8.0) g/dL Albumin (3.5-5.0) g/dL ECG Data Interpretation: Normal sinus rhythm. Ventricular rate 71. DE interval 166. QRS 88. QTC 423. 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 Liliana un seguimiento con el proveedor de atenci?n primaria para nilam posible derivaci?n a neumolog?a. Regrese al servicio de urgencias de inmediato por cualquier dolor en el pecho, dificultad para respirar al hacer ejercicio, hinchaz?n de las piernas, dolor en la pantorrilla, tos con ginny, fiebre, debilidad, escalofr?os o cualquier otro s?ntoma preocupante. Prescriptions: No Action calcium citrate-vitamin D3 [Calcium Citrate + D] 315 mg-5 mcg (200 unit) tablet 2 tab PO DAILY 30 Days Qty: 60 6RF hydrochlorothiazide 25 mg tablet 25 mg PO DAILY 90 Days Qty: 90 3RF Delsym Cough-Sore Throat 325-10 mg/10 mL liquid 20 ml PO Q4H PRN (Reason: cold symptoms) 7 Days Qty: 180 0RF (DME) lancets [FreeStyle Lancets] 28 gauge misc See Rx Instructions .ROUTE .MEDSUPPLY Qty: 100 11RF Rx Instructions: to check blood sugars twice a day (DME) FreeStyle Test Strip See Rx Instructions .Route Qty: 100 11RF Rx Instructions: Use 1 test strip twice a day losartan 25 mg tablet 25 mg PO DAILY 90 Days Qty: 90 1RF cyanocobalamin (vitamin B-12) 500 mcg tablet, sublingual 500 mcg sublingual DAILY 90 Days Qty: 90 1RF atorvastatin 80 mg tablet 80 mg PO DAILY 90 Days Qty: 90 3RF amitriptyline 25 mg tablet 25 mg PO DAILY 90 Days Qty: 90 1RF calcitriol 0.25 mcg capsule 0.25 mcg PO DAILY 90 Days Qty: 90 1RF duloxetine 30 mg capsule,delayed release(DR/EC) 30 mg PO BID 90 Days Qty: 180 1RF ezetimibe 10 mg tablet 10 mg PO DAILY 90 Days Qty: 90 1RF gabapentin 100 mg capsule 100 mg PO BID 90 Days Qty: 180 1RF meclizine 25 mg tablet 25 mg PO DAILY PRN (Reason: dizziness) 90 Days Qty: 90 0RF topiramate 100 mg tablet 100 mg PO BID 90 Days Qty: 180 1RF metformin 500 mg tablet extended release 24 hr 500 mg PO BID Qty: 180 2RF ipratropium bromide 0.03 % spray,non-aerosol intranasal ropinirole 1 mg tablet 1 mg PO DAILY sucralfate 1 gram tablet 1 g PO DAILY acetaminophen [Tylenol Arthritis Pain] 650 mg tablet extended release 650 mg PO Q8H Qty: 90 3RF epinephrine 0.3 mg/0.3 mL auto-injector IM albuterol sulfate 90 mcg/actuation HFA aerosol inhaler inhalation fluticasone propionate 50 mcg/actuation spray,suspension intranasal ondansetron HCl 4 mg tablet 4 mg PO PRN hydroxyzine HCl 25 mg tablet PO PRN Interventions: ED Discharge Assessment Last Done: 11/05/21 16:51 Discharge Date/Time: 11/05/21 16:51 Print Language: Gabonese
[2021-11-05 12:17] LABS: Alanine Aminotransferase 35 U/L (0-31); Albumin Level 4.3 g/dL (3.5-5.0); Alkaline Phosphatase 67 U/L (39-117); Anion Gap 13 (12-20); Aspartate Amino Transferase 30 U/L (5-31); Bilirubin Total 0.2 mg/dL (0.0-1.0); Blood Urea Nitrogen 16 mg/dL (9-16); Calcium 9.3 mg/dL (8.4-10.2); Carbon Dioxide 26 mmol/L (22-29); Chloride 109 mmol/L (96-108); Creatinine Clr Calc Pharmacy 53.9; Estimated Glomerular Filt Rate > 60; Glucose Random 125 mg/dL (60-115); Potassium 4.3 mmol/L (3.3-5.1); Sodium 144 mmol/L (135-145); Total Protein 6.9 g/dL (6.5-8.0)
[2021-11-05 12:23] LABS: B Type Natriuretic Peptide 42 pg/mL (<100); Troponin-I High Sensitivity < 3.5 ng/L (<3.5-17.0)
[2021-11-05 12:48] LABS: D Dimer High Sensitivity 306 NG/ML
[2021-11-05 14:17] VITALS: BP 138/65; PULSE 64; RESP 16; O2SAT 99
[2021-11-05 14:52] LABS: Troponin-I High Sensitivity 4.5 ng/L (<3.5-17.0)
== END 2021-11-05 16:51 | disposition home or self-care (01) ==
PROVIDERS: Physician Assistant; Emergency Provider Emergency Medicine Emergency Medical Services; PCP Internal Medicine
DX: R05.3 Chronic cough (principal); R06.00 Dyspnea, unspecified; U09.9 Post COVID-19 condition, unspecified; E11.9 Type 2 diabetes mellitus without complications; I10 Essential (primary) hypertension; E78.5 Hyperlipidemia, unspecified; Z79.02 Long term (current) use of antithrombotics/antiplatelets; Z79.84 Long term (current) use of oral hypoglycemic drugs; Z79.899 Other long term (current) drug therapy
CPT/HCPCS: 36415; 71046; 78580; 80053; 83880; 84484; 85025; 85379; 85610; 85730; 93005; 99285; A9540

== ENCOUNTER 2021-12-30 08:21 | Outpatient (REF) | payer MEDICARE, MEDICAID, SELFPAY ==
[2021-12-30 10:30] LABS: MANUAL DIFF FLAG NO
[2021-12-30 10:38] LABS: Basophils Percent Auto 0.4 % (0-2); Eosinophils Absolute Auto 0.2 X10*3/uL (0.0-0.4); Eosinophils Percent Auto 3.7 % (0-4); Hematocrit 36.1 % (37.0-47.0); Hemoglobin 11.8 g/dl (12.0-16.0); Imm Gran Abs Auto 0.01 X10*3/uL (0.00-0.03); Imm Gran Pct Auto 0.2 % (0.0-0.4); Lymphocytes Absolute Auto 2.6 X10*3/uL (1.2-4.9); Lymphocytes Percent Auto 47.3 % (20-40); Mean Corpuscular HGB Conc 32.7 g/dl (31.0-35.0); Mean Corpuscular Hemoglobin 29.8 pg (27.0-33.0); Mean Corpuscular Volume 91.2 fL (80.0-98.0); Mean Platelet Volume 11.8 fL (9.4-12.3); Monocytes Absolute Auto 0.4 X10*3/uL (0.1-1.2); Monocytes Percent Auto 6.9 % (2-11); Neutrophils Absolute Auto 2.2 x10*3/uL (2.0-8.3); Neutrophils Percent Auto 41.5 % (45-73); Platelet Count 312 X10*3/uL (160-400); Red Blood Count 3.96 X10*6/uL (4.20-5.50); Red Cell Distribution Width 12.3 % (11.0-16.0); White Blood Count 5.4 X10*3/uL (4.8-10.8)
[2021-12-30 10:47] LABS: Alanine Aminotransferase 15 U/L (0-31); Albumin Level 4.5 g/dL (3.5-5.0); Alkaline Phosphatase 73 U/L (39-117); Anion Gap 17 (12-20); Aspartate Amino Transferase 20 U/L (5-31); Bilirubin Total 0.4 mg/dL (0.0-1.0); Blood Urea Nitrogen 23 mg/dL (9-16); Calcium 9.5 mg/dL (8.4-10.2); Carbon Dioxide 24 mmol/L (22-29); Chloride 107 mmol/L (96-108); Cholesterol 129 mg/dL; Estimated Glomerular Filt Rate 59; Glucose Fasting 90 mg/dL (60-99); HDL Cholesterol 53 mg/dL; Iron 106 mcg/dL (30-160); LDL Cholesterol Calculated 62 mg/dl; Percent Iron Saturation 34 % (15-50); Potassium 3.9 mmol/L (3.3-5.1); Sodium 144 mmol/L (135-145); Total Iron Binding Capacity 312 mcg/dL (228-428); Triglycerides 72 mg/dL; Unsaturated Iron Binding 206 ug/dL
[2021-12-30 12:12] LABS: Creatinine Urine 96.69 mg/dL; Microalbum/Creatinine Ratio Ur 10.3 ug/mg cr
[2021-12-30 12:15] LABS: Folate > 20.0 ng/mL (> or = 4.0); Vitamin B12 575 pg/mL (200-900)
[2021-12-31 13:21] LABS: Calcium (PTHI) 9.7 mg/dL (8.6-10.4); PTHI 23 pg/mL (16-77)
[2022-01-05 13:52] LABS: Vitamin D 25-OH, D2 <4 ng/mL; Vitamin D 25-OH, D3 38 ng/mL; Vitamin D 25-OH, Total 38 ng/mL (30-100)
== END 2021-12-30 08:22 | disposition home or self-care (01) ==
LOC: HO.10HDL 08:21
PROVIDERS: Visit Provider Internal Medicine
DX: E11.9 Type 2 diabetes mellitus without complications (principal); D64.9 Anemia, unspecified; E89.2 Postprocedural hypoparathyroidism; E78.5 Hyperlipidemia, unspecified; E53.8 Deficiency of other specified B group vitamins; E55.9 Vitamin D deficiency, unspecified
CPT/HCPCS: 36415; 80053; 80061; 82043; 82306; 82330; 82607; 82746; 83540; 83970; 85025

== ENCOUNTER 2022-01-22 11:45 | Outpatient (REF) | payer MEDICARE, MEDICAID, SELFPAY ==
[2022-01-22 12:02] LABS: MANUAL DIFF FLAG NO
[2022-01-22 12:09] LABS: Basophils Percent Auto 0.3 % (0-2); Eosinophils Absolute Auto 0.1 X10*3/uL (0.0-0.4); Eosinophils Percent Auto 1.8 % (0-4); Hematocrit 37.5 % (37.0-47.0); Hemoglobin 12.6 g/dl (12.0-16.0); Imm Gran Abs Auto 0.02 X10*3/uL (0.00-0.03); Imm Gran Pct Auto 0.3 % (0.0-0.4); Lymphocytes Absolute Auto 2.2 X10*3/uL (1.2-4.9); Lymphocytes Percent Auto 31.9 % (20-40); Mean Corpuscular HGB Conc 33.6 g/dl (31.0-35.0); Mean Corpuscular Hemoglobin 30.3 pg (27.0-33.0); Mean Corpuscular Volume 90.1 fL (80.0-98.0); Mean Platelet Volume 11.1 fL (9.4-12.3); Monocytes Absolute Auto 0.4 X10*3/uL (0.1-1.2); Monocytes Percent Auto 6.2 % (2-11); Neutrophils Percent Auto 59.5 % (45-73); Platelet Count 298 X10*3/uL (160-400); Red Blood Count 4.16 X10*6/uL (4.20-5.50); Red Cell Distribution Width 12.5 % (11.0-16.0); White Blood Count 6.7 X10*3/uL (4.8-10.8)
== END 2022-01-22 11:46 | disposition home or self-care (01) ==
LOC: HO.LAB 11:45
PROVIDERS: PCP Internal Medicine; Visit Provider Internal Medicine Pulmonary Disease
DX: J45.909 Unspecified asthma, uncomplicated (principal); Z91.09 Other allergy status, other than to drugs and biological substances
CPT/HCPCS: 36415; 82785; 85025; 86003; 99202

== ENCOUNTER 2022-02-19 10:11 | Outpatient (REF) | payer MEDICARE, MEDICAID, SELFPAY ==
--- NOTE | ~2022-02-19 | MM_ITS ---
EXAMINATION: MM SCREENING DIGITAL BREAST TOMOSYNTHESIS, BILATERAL CLINICAL INFORMATION: Screening. Asymptomatic. The lifetime risk of breast cancer based on the Tyrer-Cuzick Model is 3%. COMPARISON: Mammography: 02/16/2021, 12/19/2018, 11/30/2017 TECHNIQUE: Digital breast tomosynthesis is performed in both the craniocaudal and mediolateral oblique views along with computer-aided detection (CAD). Synthesized 2D images are generated from the tomosynthesis. FINDINGS: There are scattered areas of fibroglandular density (ACR BI-RADS breast composition Category b). There are no significant masses, abnormal calcifications, or other abnormalities. Parenchymal pattern is similar to prior studies. There is no developing density or architectural abnormality. The axilla and skin contours are unremarkable. No significant changes. MM/MM tomosynthesis screening BI IMPRESSION: No mammographic evidence of malignancy. ASSESSMENT: BI-RADS 1: Negative RECOMMENDATION: Routine annual mammography screening. This patient's information was entered into a reminder system with a target due date for their next mammogram.
== END 2022-02-19 10:12 | disposition home or self-care (01) ==
LOC: HO.MAMMO 10:11
PROVIDERS: PCP Internal Medicine; Visit Provider Internal Medicine
DX: Z12.31 Encounter for screening mammogram for malignant neoplasm of breast (principal)
CPT/HCPCS: 77063; 77067

== ENCOUNTER 2022-02-25 10:03 | Outpatient (REF) | payer MEDICARE, MEDICAID, SELFPAY ==
--- NOTE | 2022-02-25 12:05 | PFT_ITS ---
Forced vital capacity 91%, FEV1 96%, MWF81-68 is 105%, and the patient could not perform MVV due to feeling lightheaded. Post bronchodilator therapy, there is a slight improvement in AXS84-64. No other significant change. Total lung capacity 90%. Residual volume 97%. Diffusion capacity 88. CONCLUSION: Normal pulmonary function test. There is no evidence of obstructive or restrictive pulmonary disorder. The patient was not able to perform effort for MVV. MD MARK Turner/MODL / [id number]
== END 2022-02-25 10:04 | disposition home or self-care (01) ==
LOC: HO.RESP 10:03
PROVIDERS: PCP Internal Medicine; Visit Provider Internal Medicine Pulmonary Disease
DX: J45.909 Unspecified asthma, uncomplicated (principal)
CPT/HCPCS: 94060; 94727; 94729

== ENCOUNTER → 2022-03-02 10:30 | Outpatient (BNVA) | payer MEDICARE, MEDICAID, SELFPAY | PROVIDERS: PCP Internal Medicine; Visit Provider Internal Medicine Pulmonary Disease | DX: J45.909 Unspecified asthma, uncomplicated (principal); Z91.09 Other allergy status, other than to drugs and biological substances; Z79.899 Other long term (current) drug therapy | CPT/HCPCS: 99212 ==

== ENCOUNTER 2022-05-18 09:52 | Outpatient (REF) | payer MEDICARE, MEDICAID, SELFPAY ==
[2022-05-18 11:26] LABS: MANUAL DIFF FLAG NO
[2022-05-18 11:39] LABS: Basophils Percent Auto 0.5 % (0-2); Eosinophils Absolute Auto 0.1 X10*3/uL (0.0-0.4); Eosinophils Percent Auto 1.7 % (0-4); Hematocrit 36.5 % (37.0-47.0); Hemoglobin 11.8 g/dl (12.0-16.0); Imm Gran Abs Auto 0.02 X10*3/uL (0.00-0.03); Imm Gran Pct Auto 0.3 % (0.0-0.4); Lymphocytes Absolute Auto 2.7 X10*3/uL (1.2-4.9); Lymphocytes Percent Auto 41.7 % (20-40); Mean Corpuscular HGB Conc 32.3 g/dl (31.0-35.0); Mean Corpuscular Hemoglobin 30.1 pg (27.0-33.0); Mean Corpuscular Volume 93.1 fL (80.0-98.0); Mean Platelet Volume 11.8 fL (9.4-12.3); Monocytes Absolute Auto 0.5 X10*3/uL (0.1-1.2); Monocytes Percent Auto 7.1 % (2-11); Neutrophils Absolute Auto 3.1 x10*3/uL (2.0-8.3); Neutrophils Percent Auto 48.7 % (45-73); Platelet Count 312 X10*3/uL (160-400); Red Blood Count 3.92 X10*6/uL (4.20-5.50); Red Cell Distribution Width 12.6 % (11.0-16.0); White Blood Count 6.4 X10*3/uL (4.8-10.8)
[2022-05-18 12:42] LABS: Alanine Aminotransferase 33 U/L (0-31); Albumin Level 4.3 g/dL (3.5-5.0); Alkaline Phosphatase 69 U/L (39-117); Anion Gap 12 (12-20); Aspartate Amino Transferase 25 U/L (5-31); Bilirubin Total 0.5 mg/dL (0.0-1.0); Blood Urea Nitrogen 22 mg/dL (9-16); Calcium 9.1 mg/dL (8.4-10.2); Carbon Dioxide 23 mmol/L (22-29); Chloride 111 mmol/L (96-108); Cholesterol 153 mg/dL; Estimated Glomerular Filt Rate > 60; Glucose Fasting 83 mg/dL (60-99); HDL Cholesterol 68 mg/dL; Iron 100 mcg/dL (30-160); LDL Cholesterol Calculated 71 mg/dl; Percent Iron Saturation 33 % (15-50); Potassium 4.3 mmol/L (3.3-5.1); Sodium 142 mmol/L (135-145); Total Iron Binding Capacity 301 mcg/dL (228-428); Total Protein 6.6 g/dL (6.5-8.0); Triglycerides 73 mg/dL; Unsaturated Iron Binding 201 ug/dL
[2022-05-18 13:13] LABS: Folate 16.7 ng/mL (> or = 4.0); Vitamin B12 643 pg/mL (200-900); Vitamin D 25-OH Total 38.3 ng/mL (>30)
[2022-05-18 14:04] LABS: Creatinine Urine 219.21 mg/dL; Microalbum/Creatinine Ratio Ur 6.3 ug/mg cr
== END 2022-05-18 09:53 | disposition home or self-care (01) ==
LOC: HO.10HDL 09:52
PROVIDERS: Absent Provider Internal Medicine Endocrinology, Diabetes & Metabolism; Visit Provider Internal Medicine
DX: Z00.00 Encounter for general adult medical examination without abnormal findings (principal); E53.8 Deficiency of other specified B group vitamins; E78.5 Hyperlipidemia, unspecified; D64.9 Anemia, unspecified; E55.9 Vitamin D deficiency, unspecified; E11.9 Type 2 diabetes mellitus without complications
CPT/HCPCS: 36415; 80053; 80061; 82043; 82306; 82607; 82746; 83540; 85025

== ENCOUNTER → 2022-07-02 08:56 | Outpatient (BNVA) | payer MEDICARE, MEDICAID, SELFPAY | PROVIDERS: PCP Internal Medicine; Visit Provider Internal Medicine Endocrinology, Diabetes & Metabolism | DX: E89.2 Postprocedural hypoparathyroidism (principal); E04.2 Nontoxic multinodular goiter | CPT/HCPCS: 99212 ==

== ENCOUNTER 2022-07-13 09:16 | Outpatient (REF) | payer MEDICARE, MEDICAID, SELFPAY | END 2022-07-13 09:17 | disposition home or self-care (01) | LOC: HO.10HDL 09:16 | PROVIDERS: Visit Provider Internal Medicine Endocrinology, Diabetes & Metabolism | DX: E89.2 Postprocedural hypoparathyroidism (principal) | CPT/HCPCS: 36415; 82310 ==

== ENCOUNTER 2022-08-03 09:56 | Outpatient (REF) | payer MEDICARE, MEDICAID, SELFPAY | END 2022-08-03 09:57 | disposition home or self-care (01) | LOC: HO.MDS 09:56 | PROVIDERS: Visit Provider Internal Medicine Pulmonary Disease | DX: J45.50 Severe persistent asthma, uncomplicated (principal) | CPT/HCPCS: 96372; J2357 ==

== ENCOUNTER 2022-09-01 09:52 | Outpatient (REF) | payer MEDICARE, MEDICAID, SELFPAY | END 2022-09-01 09:53 | disposition home or self-care (01) | LOC: HO.MDS 09:52 | PROVIDERS: Visit Provider Internal Medicine Pulmonary Disease | DX: J45.50 Severe persistent asthma, uncomplicated (principal) | CPT/HCPCS: 96372; J2357 ==

== ENCOUNTER → 2022-09-09 13:37 | Outpatient (BNVA) | payer MEDICARE, MEDICAID, SELFPAY | PROVIDERS: PCP Internal Medicine; Visit Provider Internal Medicine Pulmonary Disease | DX: J45.909 Unspecified asthma, uncomplicated (principal); Z91.09 Other allergy status, other than to drugs and biological substances | CPT/HCPCS: 99212 ==

== ENCOUNTER 2022-09-29 10:02 | Outpatient (REF) | payer MEDICARE, MEDICAID, SELFPAY | END 2022-09-29 10:03 | disposition home or self-care (01) | LOC: HO.MDS 10:02 | PROVIDERS: Visit Provider Internal Medicine Pulmonary Disease | DX: J45.50 Severe persistent asthma, uncomplicated (principal) | CPT/HCPCS: 96372; J2357 ==

== ENCOUNTER 2022-09-29 10:29 | Outpatient (AMB) | payer MEDICARE, MEDICAID, SELFPAY ==
--- NOTE | 2022-09-29 10:32 | MHC.PC.OV ---
Vital Signs 09/29/22 10:37 Height 5 ft 1 in Weight 137 lb BMI 25.9 BP 110/82 Blood Pressure Location Lt brachial Position Sitting Intake Visit Reasons: 4m F/U DM Intake Note: Patient here for a 4 month follow up DM Official Greeter Required: No Accompanied by: daughter in law Allergies Iodinated Contrast Media [IV CONTRAST] Allergy (Severe, Verified 09/29/22 10:49) ANAPHYLAXIS peanut Allergy (Severe, Verified 09/29/22 10:49) CAN'T BREATHE iodine Allergy (Intermediate, Verified 09/29/22 10:49) throat swelling lisinopril [LISINOPRIL] Allergy (Intermediate, Verified 09/29/22 10:49) COUGH, coughing gadobutrol [From GADAVIST] Allergy (Mild, Verified 09/29/22 10:49) HIVES tramadol [TRAMADOL] Adverse Reaction (Severe, Verified 09/29/22 10:49) VOMITING pseudoephedrine [PSEUDOEPHEDRINE] Adverse Reaction (Intermediate, Verified 09/29/22 10:49) HEART PALPITATIONS Medication List - Last Reconciled 09/29/22 by Cheli Beebe MD acetaminophen ER (Tylenol Arthritis Pain) 650 mg PO Q8H albuterol sulfate 90 mcg/actuation inhalation amitriptyline 25 mg PO DAILY 90 days atorvastatin 80 mg PO DAILY 90 days blood sugar diagnostic (FreeStyle Test strips) Use 1 test strip twice a day calcitriol 0.25 mcg PO DAILY calcium citrate-vitamin D3 315 mg-5 mcg (200 unit) (Calcium Citrate + D) 2 tabs PO DAILY 30 days cholecalciferol (vitamin D3) 50 mcg PO DAILY 90 days cyanocobalamin (vitamin B-12) 500 mcg sublingual DAILY 90 days duloxetine 30 mg PO BID 90 days epinephrine IM ezetimibe 10 mg PO DAILY 90 days fluticasone propionate 50 mcg/actuation intranasal gabapentin 100 mg PO BID 90 days hydrochlorothiazide 25 mg PO DAILY 90 days ipratropium bromide 2 sprays intranasal TID PRN 30 days lancets (FreeStyle Lancets) to check blood sugars twice a day losartan 25 mg PO DAILY 90 days meclizine 25 mg PO DAILY PRN 90 days metformin ER 500 mg PO BID nystatin 1 appl topical DAILY 30 days omalizumab 150 mg subcut Q4W ondansetron HCl 4 mg PO PRN ropinirole 1 mg PO DAILY sucralfate 1 g PO DAILY 90 days Symbicort 160-4.5 mcg/actuation (budesonide-formoterol) 2 puffs inhalation BID 30 days NS topiramate 100 mg PO BID 90 days Tobacco use date assessed: 05/20/22 Fall risk assessment: No Falls in past year Last assessed Fall Risk: 09/29/22 Dental Screening Dental Screen Date: 09/29/22 Did you have a dental visit in the last 12 months?: Yes Did you have a dental problem in the last 6 months where you did not have access to dental care?: No Was dental information given to patient?: Patient has dentist HPI HPI Comments History of Present Illness Details This is a 66-year-old female with diabetes mellitus type 2, hypertension, hyperlipidemia and mild recurrent major depression that comes today for follow-up on her conditions. A1c within goal. Blood pressure stable. Lipid panel will be order and her LDL goal should be less than 70. Depression also well control with medications. Walks with a cane for gait stability. No chest pain or shortness of breath. [facility] Medical History B12 deficiency Cognitive impairment Diabetes mellitus Dyslipidemia Encounter for Medicare annual wellness exam Essential hypertension History of primary hyperparathyroidism Mild recurrent major depression Non-toxic multinodular goiter Osteoporosis Post-surgical hypoparathyroidism Skin lesion Surgical History H/O blepharoplasty History of bladder suspension procedure Lipoma S/P subtotal parathyroidectomy S/P COLIN-BSO Status post fine needle aspiration Family History Father CVD (cardiovascular disease) Myocardial infarct Mother Skin cancer Diabetes Renal failure Social History Housing: Apartment Alcohol intake: never Patient Tobacco Use Status: Never used Tobacco e-Cigarette/Vaping Use: Never Used Second Hand Smoke Exposure: No service: No Current occupational status: disabled Cognitive needs: Yes Hearing needs: No Vision needs: No Questionnaire Thrive Questionnaire Date Thrive assessed: 05/20/22 JUAN DANIEL-7 AMB Questionnaire JUAN DANIEL-7 Date JUAN DANIEL - 7 assessed: 05/20/22 Source: Developed by Drs. Mandeep Bernard, Renee Pitts, Dariusz King and colleagues, with an educational mohit from [employer]. Review of Systems Const All systems reviewed & are unremarkable except as noted in HPI and below Eyes Reports no additional complaints, Denies change in vision and Denies other visual disturbances Card Denies chest pain at rest, Denies chest pain with activity, Denies edema, Denies irregular heart rhythm, Denies claudication, Denies dyspnea, Denies dyspnea on exertion, Denies orthopnea, Denies paroxysmal nocturnal dyspnea and Denies slow heart rate Resp Denies cough, Denies dyspnea and Denies dyspnea on exertion GI Denies abdominal pain, Denies change in bowel habits, Denies excessive flatus, Denies nausea and Denies vomiting Denies urinary incontinence, Denies urinary hesitancy and Denies urinary urgency Musc Denies abnormal gait, Denies atrophy, Denies deformity and Denies limited range of motion Skin/Breast Denies bleeding lesions, Denies changing lesions and Denies rash Neuro Denies abnormal gait and Denies lack of coordination Physical exam (Primary Care) Vital Signs: Last Vital Signs BP 110/82 09/29/22 10:37 BMI result Body Mass Index 25.9 Tobacco/Smoking Status: Tobacco use Status Tobacco use date assessed 05/20/22 09/29/22 10:33 Patient Tobacco Use Status Never used Tobacco 09/29/22 10:33 Tobacco use type 09/29/22 10:33 e-Cigarette/Vaping Use Never Used 09/29/22 10:33 Thrive Assessment: Date of Thrive Assessment Date Thrive assessed 05/20/22 09/29/22 10:33 Const Limitations: ambulation with cane Eyes General: appearance normal, both eyes and all related structures Eyelids: Yes eyelids normal Conjunctivae: conjunctivae normal Neck Neck: Yes normal visual inspection and Yes supple Resp Effort & Inspection: normal respiratory effort Auscultation: clear to auscultation bilaterally Cardio Jugular venous distension: no JVD Rate: regular rate Rhythm: regular rhythm Heart sounds: S1 normal heart sound present and S2 normal heart sound present Extrem General: Yes full ROM Results AMB Hemoglobin A1c AMB Hemoglobin A1c 5.9 % Last Edit by DAVID Morales on 09/29/22 10:46 Results Reviewed Results Reviewed: Laboratory Last Values Hgb A1c (Clinic) 5.9 % (4.0-6.0) 09/29/22 10:31 Assessment and Plan Assessment & Plan (1) Diabetes mellitus: Code(s): E11.9 - Type 2 diabetes mellitus without complications Qualifiers: Diabetes mellitus type: type 2 Diabetes mellitus senior ui ux developer insulin use: without senior ui ux developer use Diabetes mellitus complication status: without complication Qualified Code(s): E11.9 - Type 2 diabetes mellitus without complications Plan: Continue metformin. A1c goal is equal or less than 7%. (2) Mild recurrent major depression: Code(s): F33.0 - Major depressive disorder, recurrent, mild Plan: Continue duloxetine. (3) Essential hypertension: Code(s): I10 - Essential (primary) hypertension Plan: Continue losartan and hydrochlorothiazide. Blood pressure goal is equal or less than 130/80. (4) Dyslipidemia: Code(s): E78.5 - Hyperlipidemia, unspecified Plan: Continue statins and Zetia. LDL goal should be less than 70. Repeat lipid panel. Start low-cholesterol diet. Orders: Orders Lipid Panel Today E78.5 - Hyperlipidemia, unspecified Microalbumin, Random (w Creat) Today E11.9 - Type 2 diabetes mellitus without complications Vitamin B12 and Folate Today E53.8 - Deficiency of other specified B group vitamins Vitamin D 25-OH Total Today E55.9 - Vitamin D deficiency, unspecified Complete Blood Count Auto Diff Today D64.9 - Anemia, unspecified, E53.8 - Deficiency of other specified B group vitamins Comprehensive [place]. Panel Fast Today E11.9 - Type 2 diabetes mellitus without complications ECG 12 lead EKG Today I10 - Essential (primary) hypertension AMB Hemoglobin A1c Today E11.9 - Type 2 diabetes mellitus without complications Coding Level of Care Code Est Pt Level 4 (47924) Diagnoses Diabetes mellitus E11.9 Diabetes mellitus type: type 2 Diabetes mellitus care home insulin use: without senior ui ux developer use Diabetes mellitus complication status: without complication Mild recurrent major depression F33.0 Essential hypertension I10 Dyslipidemia E78.5 Time Spent (min) 22
[2022-09-29 10:37] VITALS: BP 110/82; BMI 25.9
== END 2022-09-29 11:10 | disposition home or self-care (01) ==
PROVIDERS: PCP Internal Medicine; Visit Provider Internal Medicine
DX: E11.9 Type 2 diabetes mellitus without complications (principal); F33.0 Major depressive disorder, recurrent, mild; I10 Essential (primary) hypertension; E78.5 Hyperlipidemia, unspecified
CPT/HCPCS: 83036; 99214

== ENCOUNTER 2022-10-13 07:32 | Outpatient (REF) | payer MEDICARE, MEDICAID, SELFPAY ==
--- NOTE | 2022-10-13 07:55 | ECG_ITS ---
Test Reason : HTN Blood Pressure : / mmHG Vent. Rate : 067 BPM Atrial Rate : 067 BPM P-R Int : 146 ms QRS Dur : 084 ms QT Int : 400 ms P-R-T Axes : 016 013 023 degrees QTc Int : 422 ms Normal sinus rhythm Normal ECG When compared with ECG of 05-NOV-2021 11:26, No significant change was found Referred By: Cheli Beebe Electronically Signed By:PHILIP COX MD
[2022-10-13 10:51] LABS: MANUAL DIFF FLAG NO
[2022-10-13 11:01] LABS: Basophils Percent Auto 0.5 % (0-2); Eosinophils Absolute Auto 0.1 X10*3/uL (0.0-0.4); Eosinophils Percent Auto 1.5 % (0-4); Hematocrit 35.5 % (37.0-47.0); Hemoglobin 11.4 g/dl (12.0-16.0); Lymphocytes Absolute Auto 2.1 X10*3/uL (1.2-4.9); Mean Corpuscular HGB Conc 32.1 g/dl (31.0-35.0); Mean Corpuscular Hemoglobin 29.9 pg (27.0-33.0); Mean Corpuscular Volume 93.2 fL (80.0-98.0); Mean Platelet Volume 11.5 fL (9.4-12.3); Monocytes Absolute Auto 0.4 X10*3/uL (0.1-1.2); Monocytes Percent Auto 8.7 % (2-11); Neutrophils Absolute Auto 1.6 x10*3/uL (2.0-8.3); Neutrophils Percent Auto 38.3 % (45-73); Platelet Count 289 X10*3/uL (160-400); Red Blood Count 3.81 X10*6/uL (4.20-5.50); Red Cell Distribution Width 12.8 % (11.0-16.0); White Blood Count 4.1 X10*3/uL (4.8-10.8)
[2022-10-13 11:45] LABS: Alanine Aminotransferase 12 U/L (0-31); Albumin Level 4.1 g/dL (3.5-5.0); Alkaline Phosphatase 51 U/L (39-117); Anion Gap 10 (12-20); Aspartate Amino Transferase 18 U/L (5-31); Bilirubin Total 0.4 mg/dL (0.0-1.0); Blood Urea Nitrogen 21 mg/dL (9-16); Calcium 8.9 mg/dL (8.4-10.2); Carbon Dioxide 29 mmol/L (22-29); Chloride 108 mmol/L (96-108); Cholesterol 177 mg/dL; Estimated Glomerular Filt Rate 58; Glucose Fasting 86 mg/dL (60-99); HDL Cholesterol 61 mg/dL; LDL Cholesterol Calculated 98 mg/dl; Potassium 4.2 mmol/L (3.3-5.1); Sodium 143 mmol/L (135-145); Total Protein 6.7 g/dL (6.5-8.0); Triglycerides 93 mg/dL; Vitamin D 25-OH Total 37.9 ng/mL (>30)
[2022-10-13 11:48] LABS: Microalbum/Creatinine Ratio Ur 6.1 ug/mg cr
[2022-10-13 11:57] LABS: Vitamin B12 628 pg/mL (200-900)
== END 2022-10-13 07:33 | disposition home or self-care (01) ==
LOC: HO.10HDL 07:32
PROVIDERS: PCP Internal Medicine; Visit Provider Internal Medicine
DX: I10 Essential (primary) hypertension (principal); E78.5 Hyperlipidemia, unspecified; E11.9 Type 2 diabetes mellitus without complications; E55.9 Vitamin D deficiency, unspecified; D64.9 Anemia, unspecified; E53.8 Deficiency of other specified B group vitamins
CPT/HCPCS: 36415; 80053; 80061; 82043; 82306; 82607; 82746; 85025; 93005

== ENCOUNTER → 2022-10-13 07:55 | Outpatient (BNV) | payer MEDICARE, MEDICAID, SELFPAY | PROVIDERS: PCP Internal Medicine; Visit Provider Internal Medicine Cardiovascular Disease | DX: I10 Essential (primary) hypertension (principal) | CPT/HCPCS: 93010 ==

== ENCOUNTER 2022-10-14 08:24 | Outpatient (AMB) | payer MEDICARE, MEDICAID, SELFPAY ==
[2022-10-14 08:38] VITALS: BP 104/68; PULSE 74; O2SAT 99; BMI 26.3
--- NOTE | 2022-10-14 08:38 | A.OFFPC_ITS ---
Vital Signs 10/14/22 08:38 Height 5 ft 1 in Weight 139 lb BMI 26.3 BP 104/68 Blood Pressure Location Lt brachial Position Sitting Pulse 74 Pulse Source Pulse Oximeter Temp Source Skin Pulse Oximetry (%) 99 Oxygen Delivery Method Room Air Intake Visit Reasons: Eye & Lasik, left cataract 10/28 Intake Note: Patient is here for a Pre-op for Cataract Surgery scheduled with Dr. Derrick Reis on 10/28 Director Call Center Sales Required: No Allergies Iodinated Contrast Media [IV CONTRAST] Allergy (Severe, Verified 10/14/22 08:42) ANAPHYLAXIS peanut Allergy (Severe, Verified 10/14/22 08:42) CAN'T BREATHE iodine Allergy (Intermediate, Verified 10/14/22 08:42) throat swelling lisinopril [LISINOPRIL] Allergy (Intermediate, Verified 10/14/22 08:42) COUGH, coughing gadobutrol [From GADAVIST] Allergy (Mild, Verified 10/14/22 08:42) HIVES tramadol [TRAMADOL] Adverse Reaction (Severe, Verified 10/14/22 08:42) VOMITING pseudoephedrine [PSEUDOEPHEDRINE] Adverse Reaction (Intermediate, Verified 10/14/22 08:42) HEART PALPITATIONS Tobacco use date assessed: 10/14/22 Fall risk assessment: No Falls in past year Last assessed Fall Risk: 10/14/22 HPI HPI Comments History of Present Illness Details 66-year-old female past medical history significant polyarthralgia, asthma, depression, hypertension, diabetes mellitus, osteoporosis, hypoparathyroidism and cognitive impairment. Patient last seen this month, patient presents today for preop visit for left cataract surgery schedule at 10/28/2022, right eye in November with Eye and lasik. Patient denies any chest pain, palpitations, shortness of breath and syncope. EKG obtained yesterday 10/13/22 Normal sinus rhythm Normal ECG When compared with ECG of 05-NOV-2021 11:26, No significant change was found ? Laboratory Tests 10/13/22 10/13/22 07:36 07:36 WBC 4.1 L RBC 3.81 L Hgb 11.4 L Hct 35.5 L MCV 93.2 MCH 29.9 MCHC 32.1 RDW 12.8 Plt Count 289 MPV 11.5 Immature Gran % (A uto) 0.0 Neut % (Auto) 38.3 L Lymph % (Auto) 51.0 H [place] % (Auto) 8.7 Eos % (Auto) 1.5 Baso % (Auto) 0.5 Lymph # (Auto) 2.1 [place] # (Auto) 0.4 Eos # (Auto) 0.1 Baso # (Auto) 0.0 Abs Immat Gran (au to) 0.00 Absolute Neuts (au to) 1.6 L Absolute Nucleated RBC 0.000 Nucleated RBC % (a uto) 0.0 Sodium 143 Potassium 4.2 Chloride 108 Carbon Dioxide 29 Anion Gap 10 L BUN 21 H Creatinine 0.96 Estimated GFR 58 Fasting Glucose 86 Calcium 8.9 Total Bilirubin 0.4 AST 18 ALT 12 Alkaline Phosphata se 51 Total Protein 6.7 Albumin 4.1 Triglycerides 93 PFSH Medical History B12 deficiency Cognitive impairment Diabetes mellitus Dyslipidemia Encounter for Medicare annual wellness exam Essential hypertension History of primary hyperparathyroidism Mild recurrent major depression Non-toxic multinodular goiter Osteoporosis Post-surgical hypoparathyroidism Skin lesion Surgical History H/O blepharoplasty History of bladder suspension procedure Lipoma S/P subtotal parathyroidectomy S/P COLIN-BSO Status post fine needle aspiration Family History Father CVD (cardiovascular disease) Myocardial infarct Mother Skin cancer Diabetes Renal failure Social History Housing: Apartment Alcohol intake: never Patient Tobacco Use Status: Never used Tobacco e-Cigarette/Vaping Use: Never Used Second Hand Smoke Exposure: No service: No Current occupational status: disabled Cognitive needs: Yes Hearing needs: No Vision needs: No Questionnaire Thrive Questionnaire Date Thrive assessed: 05/20/22 AUDIT C Alcohol Use Questionnaire (AUDIT-C) 1. How often do you have a drink containing alcohol?: Never Total Score: 0 JUAN DANIEL-7 AMB Questionnaire JUAN DANIEL-7 Date JUAN DANIEL - 7 assessed: 05/20/22 Source: Developed by Drs. Mandeep Bernard, Renee B.W. Dariusz Pitts and colleagues, with an educational mohit from [employer]. Review of Systems Const Denies chills, Denies fatigue, Denies fever(s) and Denies poor appetite Eyes Denies no additional complaints ENT Reports Normal hearing present Card Denies chest pain, Denies syncope, Denies rapid heart rate and Denies dyspnea Resp Denies cough and Denies dyspnea GI Denies change in stool character, Denies constipation, Denies diarrhea, Denies nausea and Denies vomiting Denies urinary frequency, Denies dysuria and Denies urinary urgency Neuro Reports Normal hearing present, Denies confusion and Denies syncope Psych Denies confusion Endo Denies fatigue Physical exam (Primary Care) Vital Signs: Last Vital Signs Pulse 74 10/14/22 08:38 BP 104/68 10/14/22 08:38 Pulse Ox 99 10/14/22 08:38 Oxygen Delivery Method Room Air 10/14/22 08:38 BMI result Body Mass Index 26.3 Tobacco/Smoking Status: Tobacco use Status Tobacco use date assessed 10/14/22 10/14/22 08:39 Patient Tobacco Use Status Never used Tobacco 10/14/22 08:39 Tobacco use type 09/29/22 14:32 e-Cigarette/Vaping Use Never Used 10/14/22 08:39 Thrive Assessment: Date of Thrive Assessment Date Thrive assessed 05/20/22 10/14/22 08:39 Const General: No confusion Orientation/consciousness: No confusion HENMT Head: Yes normocephalic and Yes atraumatic Eyes Conjunctivae: conjunctivae normal Chest Chest palpation & inspection: normal inspection of the chest Resp Effort & Inspection: normal respiratory effort Auscultation: clear to auscultation bilaterally, no crackles, no rhonchi and no wheezes Cardio Rate: regular rate Rhythm: regular rhythm Heart sounds: S1 normal heart sound present and S2 normal heart sound present GI Inspection: Yes normal to inspection Neuro General: No confusion Cranial nerves: Yes Normal hearing present Extrem General: No edema Assessment and Plan Assessment & Plan (1) Preop examination: Code(s): Z01.818 - Encounter for other preprocedural examination Plan: Based on review of blood work, normal ECG and above examination. Patient is of average dressed undergo schedule cataract surgery. No further workup is needed at this time and patient can proceed with scheduled surgery. Patient advised Holter metformin morning surgery while NPO. (2) Essential hypertension: Code(s): I10 - Essential (primary) hypertension Plan: Continue on hydrochlorothiazide 25 mg daily and losartan 20 mg daily. (3) Diabetes mellitus: Code(s): E11.9 - Type 2 diabetes mellitus without complications Qualifiers: Diabetes mellitus type: type 2 Diabetes mellitus intermediate insulin use: without ocean transportation intermediary use Diabetes mellitus complication status: without complication Qualified Code(s): E11.9 - Type 2 diabetes mellitus without complications Plan: Continue on metformin 500 mg b.i.d. Hemoglobin A1c 09/29/22: 5.9% Follow low carbohydrate diet. Plan Keep scheduled follow up with pcp Coding Level of Care Code Est Pt Level 3 (57073) Diagnoses Preop examination Z01.818 Essential hypertension I10 Diabetes mellitus E11.9 Diabetes mellitus type: type 2 Diabetes mellitus ocean transportation intermediary insulin use: without intermediate use Diabetes mellitus complication status: without complication
== END 2022-10-14 08:59 | disposition home or self-care (01) ==
PROVIDERS: PCP Internal Medicine; Visit Provider Nurse Practitioner Family
DX: Z01.818 Encounter for other preprocedural examination (principal); I10 Essential (primary) hypertension; E11.9 Type 2 diabetes mellitus without complications
CPT/HCPCS: 99213

== ENCOUNTER 2022-10-25 08:55 | Outpatient (REF) | payer MEDICARE, MEDICAID, SELFPAY | END 2022-10-25 08:56 | disposition home or self-care (01) | LOC: HO.MDS 08:55 | PROVIDERS: Visit Provider Internal Medicine Pulmonary Disease | DX: J45.50 Severe persistent asthma, uncomplicated (principal) | CPT/HCPCS: 96372; J2357 ==

== ENCOUNTER 2022-11-25 09:02 | Outpatient (REF) | payer MEDICARE, MEDICAID, SELFPAY | END 2022-11-25 09:03 | disposition home or self-care (01) | LOC: HO.MDS 09:02 | PROVIDERS: Visit Provider Internal Medicine Pulmonary Disease | DX: J45.50 Severe persistent asthma, uncomplicated (principal) | CPT/HCPCS: 96372; J2357 ==

== ENCOUNTER 2022-12-23 09:53 | Outpatient (REF) | payer MEDICARE, MEDICAID, SELFPAY | END 2022-12-23 09:54 | disposition home or self-care (01) | LOC: HO.MDS 09:53 | PROVIDERS: Visit Provider Internal Medicine Pulmonary Disease | DX: J45.50 Severe persistent asthma, uncomplicated (principal) | CPT/HCPCS: 96372; J2357 ==

== ENCOUNTER 2023-01-11 08:55 | Outpatient (AMB) | payer MEDICARE, MEDICAID, SELFPAY ==
--- NOTE | 2023-01-11 09:02 | A.OFFVIS_ITS ---
Intake Vital Signs 01/11/23 09:03 Height 5 ft 1 in Weight 143 lb 4.807 oz BMI 27.1 BP 119/82 Blood Pressure Location Rt brachial Position Sitting Pulse 73 Pulse Source Doppler Pulse Oximetry (%) 100 Oxygen Delivery Method Room Air Intake Visit Reasons: asthma Allergies Iodinated Contrast Media [IV CONTRAST] Allergy (Severe, Verified 01/11/23 09:15) ANAPHYLAXIS peanut Allergy (Severe, Verified 01/11/23 09:15) CAN'T BREATHE iodine Allergy (Intermediate, Verified 01/11/23 09:15) throat swelling lisinopril [LISINOPRIL] Allergy (Intermediate, Verified 01/11/23 09:15) COUGH, coughing gadobutrol [From GADAVIST] Allergy (Mild, Verified 01/11/23 09:15) HIVES tramadol [TRAMADOL] Adverse Reaction (Severe, Verified 01/11/23 09:15) VOMITING pseudoephedrine [PSEUDOEPHEDRINE] Adverse Reaction (Intermediate, Verified 01/11/23 09:15) HEART PALPITATIONS HPI asthma HPI Details 67-year-old lady, nonsmoker, followed fo r underlying severe persistent allergic asthma and environmental allergies. She continues on Xolair, Sym bicort, and albuterol MDI with good control of his symptoms. She denies recent exacerbations. She does complain of some GERD related cough at night. [facility] Medical History B12 deficiency Cognitive impairment Diabetes mellitus Dyslipidemia Encounter for Medicare annual wellness exam Essential hypertension History of primary hyperparathyroidism Mild recurrent major depression Non-toxic multinodular goiter Osteoporosis Post-surgical hypoparathyroidism Skin lesion Surgical History H/O blepharoplasty History of bladder suspension procedure Lipoma S/P subtotal parathyroidectomy S/P COLIN-BSO Status post fine needle aspiration Family History Father CVD (cardiovascular disease) Myocardial infarct Mother Skin cancer Diabetes Renal failure Social History Housing: Apartment Alcohol intake: never Patient Tobacco Use Status: Never used Tobacco e-Cigarette/Vaping Use: Never Used Second Hand Smoke Exposure: No service: No Current occupational status: disabled Cognitive needs: Yes Hearing needs: No Vision needs: No Review of Systems Const Denies daytime sleepiness, Denies excessive sweating, Denies fatigue, Denies fever(s), Denies lethargy, Denies malaise, Denies night sweats, Denies snoring and Denies weight loss Eyes Denies blurry vision and Denies itchy eyes ENT Denies nasal congestion, Denies post nasal drip, Denies sinus pain, Denies sinus pressure and Denies other ( Thrush) Card Denies chest pain, Denies pedal edema, Denies dyspnea, Denies orthopnea and Denies paroxysmal nocturnal dyspnea Resp Reports cough, Denies hemoptysis, Denies excessive phlegm production, Denies dyspnea, Denies snoring and Denies wheezing GI Denies abdominal pain and Reports heartburn Musc Denies myalgias, Denies arthralgias and Denies joint swelling Skin/Breast Denies rash Neuro Denies memory loss and Denies seizure-like activity Psych Denies abnormal sleep pattern, Denies anxiety and Denies memory loss Endo Denies excessive sweating, Denies fatigue and Denies heat intolerance Lakhwinder/Lymph Denies easy bruising Aller/Immun Denies itchy eyes, Denies seasonal rhinorrhea and Denies wheezing Physical Exam Vital Signs: Last Vital Signs Pulse 73 01/11/23 09:03 BP 119/82 01/11/23 09:03 Pulse Ox 100 01/11/23 09:03 Oxygen Delivery Method Room Air 01/11/23 09:03 BMI result Body Mass Index 27.1 Const General: no acute distress and alert Nutritional Appearance: not obese Orientation/consciousness: Other orientation findings ( oriented) HEENT Head: Yes atraumatic Eyes General: appearance normal, both eyes and all related structures Sclerae: sclerae normal EOM: EOMs intact bilaterally Neck Neck: Yes supple Lymphatic: no lymphadenopathy noted Resp Effort & Inspection: normal respiratory effort and no use of accessory muscles Auscultation: clear to auscultation bilaterally Cardio Rate: regular rate Rhythm: regular rhythm Heart sounds: no gallops, no murmurs and no rubs Skin General skin exam: other ( warm) Extrem General: No clubbing, No cyanosis and No edema Assessment & Plan Assessment & Plan (1) Asthma: Code(s): J45.909 - Unspecified asthma, uncomplicated Plan: Will controlled on Xolair, Symbicort, and albuterol MDI. Continue current regimen. (2) Environmental allergies: Code(s): Z91.09 - Other allergy status, other than to drugs and biological substances Plan: Well controlled on Xolair. Continue current regimen. (3) GERD (gastroesophageal reflux disease): Code(s): K21.9 - Gastro-esophageal reflux disease without esophagitis Plan: Suboptimal symptom control. Will increase omeprazole to 40mg twice a day. Medications: New omeprazole 40 mg PO BID 60 caps 6RF 30 days Coding Level of Care Code Est Pt Level 4 (71305) Diagnoses Asthma J45.909 Environmental allergies Z91.09 GERD (gastroesophageal reflux disease) K21.9
[2023-01-11 09:03] VITALS: BP 119/82; PULSE 73; O2SAT 100; BMI 27.1
== END 2023-01-11 09:23 | disposition home or self-care (01) ==
PROVIDERS: PCP Internal Medicine; Visit Provider Internal Medicine Pulmonary Disease
DX: J45.909 Unspecified asthma, uncomplicated (principal); Z91.09 Other allergy status, other than to drugs and biological substances; K21.9 Gastro-esophageal reflux disease without esophagitis
CPT/HCPCS: 99214

== ENCOUNTER → 2023-01-11 08:55 | Outpatient (BNVA) | payer MEDICARE, MEDICAID, SELFPAY | PROVIDERS: PCP Internal Medicine; Visit Provider Internal Medicine Pulmonary Disease | DX: J45.909 Unspecified asthma, uncomplicated (principal); Z91.09 Other allergy status, other than to drugs and biological substances; K21.9 Gastro-esophageal reflux disease without esophagitis | CPT/HCPCS: 99212 ==

== ENCOUNTER 2023-01-20 10:01 | Outpatient (REF) | payer MEDICARE, MEDICAID, SELFPAY | END 2023-01-20 10:02 | disposition home or self-care (01) | LOC: HO.MDS 10:01 | PROVIDERS: Visit Provider Internal Medicine Pulmonary Disease | DX: J45.50 Severe persistent asthma, uncomplicated (principal) | CPT/HCPCS: 96372; J2357 ==

== ENCOUNTER 2023-02-17 10:04 | Outpatient (REF) | payer MEDICARE, MEDICAID, SELFPAY | END 2023-02-17 10:05 | disposition home or self-care (01) | LOC: HO.MDS 10:04 | PROVIDERS: Visit Provider Internal Medicine Pulmonary Disease | DX: J45.50 Severe persistent asthma, uncomplicated (principal) | CPT/HCPCS: 96372; J2357 ==

== ENCOUNTER 2023-02-25 10:23 | Outpatient (REF) | payer MEDICARE, MEDICAID, SELFPAY | END 2023-02-25 10:24 | disposition home or self-care (01) | LOC: HO.MAMMO 10:23 | PROVIDERS: PCP Internal Medicine; Visit Provider Internal Medicine | DX: Z12.31 Encounter for screening mammogram for malignant neoplasm of breast (principal) | CPT/HCPCS: 77063; 77067 ==

== ENCOUNTER → 2023-02-25 10:30 | Outpatient (BNV) | payer MEDICARE, MEDICAID, SELFPAY | PROVIDERS: PCP Internal Medicine; Visit Provider Radiology Diagnostic Radiology | DX: Z12.31 Encounter for screening mammogram for malignant neoplasm of breast (principal) | CPT/HCPCS: 77063; 77067 ==

== ENCOUNTER 2023-03-03 07:35 | Outpatient (REF) | payer MEDICARE, MEDICAID, SELFPAY ==
[2023-03-03 10:22] LABS: MANUAL DIFF FLAG NO
[2023-03-03 10:27] LABS: Basophils Percent Auto 0.5 % (0-2); Eosinophils Absolute Auto 0.1 X10*3/uL (0.0-0.4); Eosinophils Percent Auto 0.9 % (0-4); Hematocrit 38.7 % (37.0-47.0); Hemoglobin 12.3 g/dl (12.0-16.0); Imm Gran Abs Auto 0.02 X10*3/uL (0.00-0.03); Imm Gran Pct Auto 0.3 % (0.0-0.4); Lymphocytes Percent Auto 50.8 % (20-40); Mean Corpuscular HGB Conc 31.8 g/dl (31.0-35.0); Mean Corpuscular Hemoglobin 29.5 pg (27.0-33.0); Mean Corpuscular Volume 92.8 fL (80.0-98.0); Mean Platelet Volume 11.9 fL (9.4-12.3); Monocytes Absolute Auto 0.4 X10*3/uL (0.1-1.2); Monocytes Percent Auto 6.9 % (2-11); Neutrophils Absolute Auto 2.4 x10*3/uL (2.0-8.3); Neutrophils Percent Auto 40.6 % (45-73); Platelet Count 327 X10*3/uL (160-400); Red Blood Count 4.17 X10*6/uL (4.20-5.50); Red Cell Distribution Width 12.7 % (11.0-16.0); White Blood Count 5.8 X10*3/uL (4.8-10.8)
[2023-03-03 10:52] LABS: Alanine Aminotransferase 8 U/L (0-31); Albumin Level 4.4 g/dL (3.5-5.0); Alkaline Phosphatase 72 U/L (39-117); Anion Gap 14 (12-20); Aspartate Amino Transferase 17 U/L (5-31); Bilirubin Total 0.4 mg/dL (0.0-1.0); Blood Urea Nitrogen 24 mg/dL (9-16); Calcium 9.7 mg/dL (8.4-10.2); Carbon Dioxide 24 mmol/L (22-29); Chloride 108 mmol/L (96-108); Cholesterol 197 mg/dL (<200); Estimated Glomerular Filt Rate 51; Glucose Fasting 87 mg/dL (60-99); HDL Cholesterol 61 mg/dL (>40); Iron 83 mcg/dL (30-160); LDL Cholesterol Calculated 117 mg/dL (<100); Percent Iron Saturation 31 % (15-50); Potassium 4.1 mmol/L (3.3-5.1); Sodium 142 mmol/L (135-145); Total Iron Binding Capacity 265 mcg/dL (228-428); Total Protein 7.4 g/dL (6.5-8.0); Triglycerides 96 mg/dL (<150); Unsaturated Iron Binding 182 ug/dL
[2023-03-03 11:00] LABS: Vitamin D 25-OH Total 37.8 ng/mL (>30)
[2023-03-03 11:14] LABS: Creatinine Urine 193.77 mg/dL; Microalbum/Creatinine Ratio Ur 25.2 ug/mg cr (<30)
[2023-03-03 11:15] LABS: Vitamin B12 1011 pg/mL (200-900)
== END 2023-03-03 07:36 | disposition home or self-care (01) ==
LOC: HO.10HDL 07:35
PROVIDERS: Visit Provider Internal Medicine
DX: E78.5 Hyperlipidemia, unspecified (principal); E53.8 Deficiency of other specified B group vitamins; E04.2 Nontoxic multinodular goiter; E55.9 Vitamin D deficiency, unspecified; D64.9 Anemia, unspecified; E11.9 Type 2 diabetes mellitus without complications; M25.50 Pain in unspecified joint
CPT/HCPCS: 36415; 80053; 80061; 82043; 82306; 82570; 82607; 82746; 83540; 84443; 85025

== ENCOUNTER 2023-03-03 09:15 | Outpatient (AMB) | payer MEDICARE, MEDICAID, SELFPAY ==
--- NOTE | 2023-03-03 09:22 | A.OFFPC_ITS ---
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 Accompanied by: daughter in law Allergies Iodinated Contrast Media [IV CONTRAST] Allergy (Severe, Verified 03/03/23 09:41) ANAPHYLAXIS peanut Allergy (Severe, Verified 03/03/23 09:41) CAN'T BREATHE iodine Allergy (Intermediate, Verified 03/03/23 09:41) throat swelling lisinopril [LISINOPRIL] Allergy (Intermediate, Verified 03/03/23 09:41) COUGH, coughing gadobutrol [From GADAVIST] Allergy (Mild, Verified 03/03/23 09:41) HIVES tramadol [TRAMADOL] Adverse Reaction (Severe, Verified 03/03/23 09:41) VOMITING pseudoephedrine [PSEUDOEPHEDRINE] Adverse Reaction (Intermediate, Verified 03/03/23 09:41) HEART PALPITATIONS Medication List - Last Reconciled 03/03/23 by Cheli Beebe MD acetaminophen ER (Tylenol Arthritis Pain) 650 mg PO Q8H albuterol sulfate 90 mcg/actuation inhalation amitriptyline 25 mg PO DAILY 90 days atorvastatin 80 mg PO DAILY 90 days blood sugar diagnostic (FreeStyle Test strips) Use 1 test strip twice a day calcitriol 0.25 mcg PO DAILY calcium citrate-vitamin D3 315 mg-5 mcg (200 unit) (Calcium Citrate + D) 2 tabs PO DAILY 30 days cholecalciferol (vitamin D3) 50 mcg PO DAILY 90 days cyanocobalamin (vitamin B-12) 500 mcg sublingual DAILY 90 days duloxetine 30 mg PO BID 90 days epinephrine IM ezetimibe 10 mg PO DAILY 90 days fluticasone propionate 50 mcg/actuation intranasal gabapentin 100 mg PO BID 90 days hydrochlorothiazide 25 mg PO DAILY 90 days ipratropium bromide 2 sprays intranasal TID PRN lancets (FreeStyle Lancets) to check blood sugars twice a day losartan 25 mg PO DAILY 90 days meclizine 25 mg PO DAILY PRN 90 days metformin ER 500 mg PO BID nystatin 1 appl topical DAILY 30 days omalizumab 150 mg subcut Q4W omeprazole 40 mg PO BID 30 days ondansetron HCl 4 mg PO PRN ropinirole 1 mg PO DAILY sucralfate 1 g PO DAILY 90 days Symbicort 160-4.5 mcg/actuation (budesonide-formoterol) 2 puffs inhalation BID 30 days NS topiramate 100 mg PO BID 90 days Tobacco use date assessed: 10/14/22 Fall risk assessment: No Falls in past year Last assessed Fall Risk: 03/03/23 Dental Screening Dental Screen Date: 03/03/23 Did you have a dental visit in the last 12 months?: No Did you have a dental problem in the last 6 months where you did not have access to dental care?: No Was dental information given to patient?: Patient has dentist HPI HPI Comments History of Present Illness Details This is a 67-year-old female with diabetes mellitus type 2 and mild recurrent major depression that comes for her physical exam. Depression stable. A1c within goal. Diabetic eye exam up today. Last mammogram was 2022 and was normal. Colonoscopy will be done next year at [facility] with Dr. Quinn. She does complains of memory loss that has hit present for years but has been more prominent this past few months. She is in places and things she does not know where she is and start yelling. She is accompanied by ANGIE Johnson. ON LICENSE OF [facility] Medical History (Updated 03/03/23 @ 09:47 by Cheli Beebe MD) Mild recurrent major depression Skin lesion Cognitive impairment Encounter for Medicare annual wellness exam Dyslipidemia Essential hypertension Diabetes mellitus B12 deficiency Non-toxic multinodular goiter Osteoporosis Post-surgical hypoparathyroidism History of primary hyperparathyroidism Surgical History (Updated 03/03/23 @ 09:47 by Cheli Beebe MD) Cataract S/P COLIN-BSO History of bladder suspension procedure H/O blepharoplasty Lipoma Status post fine needle aspiration S/P subtotal parathyroidectomy Family History Father CVD (cardiovascular disease) Myocardial infarct Mother Skin cancer Diabetes Renal failure Social History Housing: Apartment Alcohol intake: never Patient Tobacco Use Status: Never used Tobacco e-Cigarette/Vaping Use: Never Used Second Hand Smoke Exposure: No service: No Current occupational status: disabled Cognitive needs: Yes Hearing needs: No Vision needs: No Questionnaire Thrive Questionnaire Date Thrive assessed: 05/20/22 JUAN DANIEL-7 AMB Questionnaire JUAN DANIEL-7 Date JUAN DANIEL - 7 assessed: 05/20/22 Source: Developed by Drs. Mandeep Bernard, Renee Pitts, Dariusz King and colleagues, with an educational mohit from [employer]. Review of Systems Const All systems reviewed & are unremarkable except as noted in HPI and below Eyes Reports no additional complaints, Denies change in vision and Denies other visual disturbances Card Denies chest pain at rest, Denies chest pain with activity, Denies edema, Denies irregular heart rhythm, Denies claudication, Denies dyspnea, Denies dyspnea on exertion, Denies orthopnea, Denies paroxysmal nocturnal dyspnea and Denies slow heart rate Resp Denies cough, Denies dyspnea and Denies dyspnea on exertion GI Denies abdominal pain, Denies change in bowel habits, Denies excessive flatus, Denies nausea and Denies vomiting Denies urinary incontinence, Denies urinary hesitancy and Denies urinary urgency Musc Denies abnormal gait, Denies atrophy, Denies deformity and Denies limited range of motion Skin/Breast Denies bleeding lesions, Denies changing lesions and Denies rash Neuro Denies abnormal gait, Denies behavioral changes, Denies confusion and Denies lack of coordination Psych Denies behavioral changes and Denies confusion Physical exam (Primary Care) Vital Signs: Last Vital Signs BP 110/72 03/03/23 09:24 BMI result Body Mass Index 26.3 Tobacco/Smoking Status: Tobacco use Status Tobacco use date assessed 10/14/22 03/03/23 09:30 Patient Tobacco Use Status Never used Tobacco 03/03/23 09:30 Tobacco use type 09/29/22 14:32 e-Cigarette/Vaping Use Never Used 03/03/23 09:30 Thrive Assessment: Date of Thrive Assessment Date Thrive assessed 05/20/22 03/03/23 09:30 Const General: No confusion Orientation/consciousness: patient oriented x3 and No confusion HENMT Head: Yes normal to inspection, Yes normocephalic and Yes atraumatic Ears: external ears normal Eyes General: appearance normal, both eyes and all related structures Eyelids: Yes eyelids normal Conjunctivae: conjunctivae normal Neck Neck: Yes normal visual inspection and Yes supple Resp Effort & Inspection: normal respiratory effort Auscultation: clear to auscultation bilaterally Cardio Jugular venous distension: no JVD Rate: regular rate Rhythm: regular rhythm Heart sounds: S1 normal heart sound present and S2 normal heart sound present GI Inspection: Yes normal to inspection Palpation (GI): Soft to palpation and nontender Auscultation: normal bowel sounds Skin General skin exam: no rashes or lesions noted Neuro General: patient oriented x3, no focal motor deficits and No confusion Extrem General: Yes full ROM Psych Appearance: grossly normal Office Procedures Flu Questionnaire Does the patient have a severe egg allergy?: No Does the patient have severe life threatening allergies?: No Does the patient have a fever or illness today?: No Has the patient ever had Guillain-[place] Syndrome?: No Has the patient ever had any past reaction to a flu shot?: No Results AMB Hemoglobin A1c AMB Hemoglobin A1c 6.0 % Last Edit by DAVID Morales on 03/03/23 09:3 6 Immunizations flu vacc [id number] 6mos up(PF) 60 mcg(15 mcgx4)/0.5 mL IM syringe Performing Provider: Cheli Beebe MD [facility] Administered by: DAVID Morales on 03/03/23 09:33 Dose Route Admin Location Dispensed Lot Number Expiration Date NDC Program Analyst 0.5 mL IM Left Deltoid 0.5 mL [id number] 09/18/23 [id number] [email or web address] VIS Given Date VIS Provided VIS Publication Date 03/03/23 Single Vaccine 20 Eligibility Eligibility Date Funding Source Not [facility] Eligible 03/03/23 Private Results Reviewed Results Reviewed: Laboratory Last Values Hgb A1c (Clinic) 6.0 % (4.0-6.0) 03/03/23 09:21 Assessment and Plan Assessment & Plan (1) Physical exam: Code(s): Z00.00 - Encounter for general adult medical examination without abnormal findings Plan: Repeat in a year. (2) Mild recurrent major depression: Code(s): F33.0 - Major depressive disorder, recurrent, mild Plan: Continue amitriptyline and duloxetine. (3) Diabetes mellitus: Code(s): E11.9 - Type 2 diabetes mellitus without complications Qualifiers: Diabetes mellitus type: type 2 Diabetes mellitus nursing home insulin use: without nursing home use Diabetes mellitus complication status: without complication Qualified Code(s): E11.9 - Type 2 diabetes mellitus without complications Plan: Continue metformin. A1c goal is equal or less than 7%. Orders: Orders UA CC w/rflx Micro + Cult Today R30.0 - Dysuria MR head/brain wo con Today R41.0 - Disorientation, unspecified AMB Hemoglobin A1c Today E11.9 - Type 2 diabetes mellitus without complications Influenza [id number] Immunization Today Z23 - Encounter for immunization Coding Level of Care Code Est Pt Prev Care >65y(13386) Diagnoses Physical exam Z00.00 Mild recurrent major depression F33.0 Type 2 diabetes mellitus without complication, without long-term current use of insulin E11.9 Diabetes mellitus type: type 2 Diabetes mellitus nursing home insulin use: without terminal superintendent use Diabetes mellitus complication status: without complication Time Spent (min) 33
[2023-03-03 09:24] VITALS: BP 110/72; BMI 26.3
== END 2023-03-03 09:59 | disposition home or self-care (01) ==
PROVIDERS: Visit Provider Internal Medicine
DX: Z00.00 Encounter for general adult medical examination without abnormal findings (principal); F33.0 Major depressive disorder, recurrent, mild; E11.9 Type 2 diabetes mellitus without complications; Z23 Encounter for immunization
CPT/HCPCS: 83036; 90471; 90686; 99397

== ENCOUNTER 2023-03-17 08:43 | Outpatient (REF) | payer MEDICARE, MEDICAID, SELFPAY | END 2023-03-17 08:44 | disposition home or self-care (01) | LOC: HO.MDS 08:43 | PROVIDERS: Visit Provider Internal Medicine Pulmonary Disease | DX: J45.50 Severe persistent asthma, uncomplicated (principal) | CPT/HCPCS: 96372; J2357 ==

== ENCOUNTER 2023-03-23 13:06 | Outpatient (REF) | payer MEDICARE, MEDICAID, SELFPAY | END 2023-03-23 13:07 | disposition home or self-care (01) | LOC: HO.MRI 13:06 | PROVIDERS: PCP Internal Medicine; Visit Provider Internal Medicine | DX: R41.0 Disorientation, unspecified (principal) | CPT/HCPCS: 70551 ==

== ENCOUNTER 2023-04-14 08:50 | Outpatient (REF) | payer MEDICARE, MEDICAID, SELFPAY | END 2023-04-14 08:51 | disposition home or self-care (01) | LOC: HO.MDS 08:50 | PROVIDERS: Visit Provider Internal Medicine Pulmonary Disease | DX: J45.50 Severe persistent asthma, uncomplicated (principal) | CPT/HCPCS: 96372; J2357 ==

== ENCOUNTER 2023-05-12 08:53 | Outpatient (REF) | payer MEDICARE, MEDICAID, SELFPAY | END 2023-05-12 08:54 | disposition home or self-care (01) | LOC: HO.MDS 08:53 | PROVIDERS: Visit Provider Internal Medicine Pulmonary Disease | DX: J45.50 Severe persistent asthma, uncomplicated (principal) | CPT/HCPCS: 96372; J2357 ==

== ENCOUNTER 2023-06-09 08:47 | Outpatient (REF) | payer MEDICARE, MEDICAID, SELFPAY ==
[2023-06-09 08:53] VITALS: BP 121/66; PULSE 76; RESP 18; TEMP 36.7; O2SAT 100; BMI 26.4
[2023-06-09] MEDS: Omalizumab 150 MG/ML SYRINGE SUBCUT (08:59)
== END 2023-06-09 08:48 | disposition home or self-care (01) ==
LOC: HO.MDS 08:47
PROVIDERS: Visit Provider Internal Medicine Pulmonary Disease
DX: J45.50 Severe persistent asthma, uncomplicated (principal)
CPT/HCPCS: 96372; J2357

== ENCOUNTER 2023-07-06 07:38 | Outpatient (REF) | payer MEDICARE, MEDICAID, SELFPAY ==
[2023-07-06 11:21] LABS: Alanine Aminotransferase 13 U/L (0-31); Albumin Level 4.4 g/dL (3.5-5.0); Alkaline Phosphatase 81 U/L (39-117); Anion Gap 12 (12-20); Aspartate Amino Transferase 17 U/L (5-31); Bilirubin Total 0.4 mg/dL (0.0-1.0); Blood Urea Nitrogen 28 mg/dL (9-16); Carbon Dioxide 25 mmol/L (22-29); Chloride 108 mmol/L (96-108); Cholesterol 161 mg/dL (<200); Estimated Glomerular Filt Rate 58; Glucose Fasting 91 mg/dL (60-99); HDL Cholesterol 64 mg/dL (>40); LDL Cholesterol Calculated 80 mg/dL (<100); Phosphorus 3.1 mg/dL (2.7-4.5); Potassium 3.7 mmol/L (3.3-5.1); Sodium 141 mmol/L (135-145); Total Protein 7.5 g/dL (6.5-8.0); Triglycerides 88 mg/dL (<150)
[2023-07-06 11:32] LABS: Vitamin D 25-OH Total 35.5 ng/mL (>30)
[2023-07-06 11:40] LABS: Free T4 (Free Thyroxine) 0.93 ng/dL (0.71-1.85); Thyroid Stimulating Hormone 2.97 uIU/mL (0.32-4.0)
[2023-07-06 11:45] LABS: Folate 7.2 ng/mL (> or = 4.0); Vitamin B12 539 pg/mL (200-900)
[2023-07-06 11:49] LABS: Creatinine Urine 205.08 mg/dL; Microalbum/Creatinine Ratio Ur 9.2 ug/mg cr (<30)
== END 2023-07-06 07:39 | disposition home or self-care (01) ==
LOC: HO.10HDL 07:38
PROVIDERS: Internal Medicine; Visit Provider Internal Medicine Endocrinology, Diabetes & Metabolism
DX: E11.9 Type 2 diabetes mellitus without complications (principal); E04.2 Nontoxic multinodular goiter; E89.2 Postprocedural hypoparathyroidism; E53.8 Deficiency of other specified B group vitamins; E78.5 Hyperlipidemia, unspecified
CPT/HCPCS: 36415; 80053; 80061; 82043; 82306; 82570; 82607; 82746; 84100; 84439; 84443

== ENCOUNTER 2023-07-07 08:13 | Outpatient (AMB) | payer MEDICARE, MEDICAID, SELFPAY ==
[2023-07-07 08:26] VITALS: BP 110/72; BMI 26.4
--- NOTE | 2023-07-07 08:26 | MHC.PC.OV ---
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 Hand Required: No Accompanied by: Family/Other Allergies Iodinated Contrast Media [IV CONTRAST] Allergy (Severe, Verified 07/07/23 08:45) ANAPHYLAXIS peanut Allergy (Severe, Verified 07/07/23 08:45) CAN'T BREATHE iodine Allergy (Intermediate, Verified 07/07/23 08:45) throat swelling lisinopril [LISINOPRIL] Allergy (Intermediate, Verified 07/07/23 08:45) COUGH, coughing gadobutrol [From GADAVIST] Allergy (Mild, Verified 07/07/23 08:45) HIVES tramadol [TRAMADOL] Adverse Reaction (Severe, Verified 07/07/23 08:45) VOMITING pseudoephedrine [PSEUDOEPHEDRINE] Adverse Reaction (Intermediate, Verified 07/07/23 08:45) HEART PALPITATIONS Medication List - Last Reconciled 07/07/23 by Cheli Beebe MD acetaminophen ER (Tylenol Arthritis Pain) 650 mg PO Q8H albuterol sulfate 90 mcg/actuation inhalation amitriptyline 25 mg PO DAILY 90 days amoxicillin-pot clavulanate 875-125 mg 1 tab PO BID atorvastatin 80 mg PO DAILY 90 days blood sugar diagnostic (FreeStyle Test strips) Use 1 test strip twice a day calcitriol 0.25 mcg PO DAILY calcium citrate-vitamin D3 315 mg-5 mcg (200 unit) (Calcium Citrate + D) 2 tabs PO DAILY 30 days cholecalciferol (vitamin D3) 50 mcg PO DAILY 90 days cyanocobalamin (vitamin B-12) 500 mcg sublingual DAILY 90 days duloxetine 30 mg PO BID 90 days epinephrine IM ezetimibe 10 mg PO DAILY 90 days fluticasone propionate 50 mcg/actuation intranasal gabapentin 100 mg PO BID 90 days hydrochlorothiazide 25 mg PO DAILY 90 days ipratropium bromide 2 sprays intranasal TID PRN lancets (FreeStyle Lancets) to check blood sugars twice a day linaclotide (Linzess) 72 mcg PO DAILY losartan 25 mg PO DAILY 90 days meclizine 25 mg PO DAILY PRN 90 days metformin ER 500 mg PO BID nystatin 1 appl topical DAILY 30 days omalizumab 150 mg subcut Q4W omeprazole 40 mg PO BID 30 days ondansetron HCl 4 mg PO PRN ropinirole 1 mg PO DAILY sucralfate 1 g PO DAILY 90 days Symbicort 160-4.5 mcg/actuation (budesonide-formoterol) 2 puffs inhalation BID 30 days NS topiramate 100 mg PO BID 90 days Tobacco use date assessed: 07/07/23 Fall risk assessment: No Falls in past year Last assessed Fall Risk: 07/07/23 Dental Screening Dental Screen Date: 07/07/23 Did you have a dental visit in the last 12 months?: No Did you have a dental problem in the last 6 months where you did not have access to dental care?: No Was dental information given to patient?: Patient has dentist HPI HPI Comments History of Present Illness Details This is a 67-year-old female with diabetes mellitus type 2, hypertension, dyslipidemia, mild recurrent major depression, GERD and dementia that comes accompanied by Elizabeth which is her COMPOUNDING AND FINISHING SUPERVISOR and healthcare proxy for follow-up on her conditions. A1c within goal. Blood pressure stable. LDL close to goal. On duloxetine for her depression and this is follow by Psychiatry. GERD stable with PPIs. Had a colonoscopy in April 2023 at [place] and results are not available at the moment. Due to her migraines she has been follow with neurologist Dr. Lucia for a few years. This year she started to have cognitive impairment that has progressively worsened. She does not know where she is all the time even at the colonoscopy to the point that they had to call the healthcare proxy. She is awake and alert but not oriented to time, person or place. She told me that her name was Suki Collins and that they year was 2021 and she also told me that she can tell me the place if she looks at her phone. She can not tell me the town where she lives. She lives with her COMPOUNDING AND FINISHING SUPERVISOR for the last 10 years. Walks with a cane for gait stability due to chronic low back pain. Has not started medication for dementia yet. [facility] Medical History (Updated 07/07/23 @ 12:21 by Cheli Beebe MD) Mild recurrent major depression Skin lesion Cognitive impairment Encounter for Medicare annual wellness exam Dyslipidemia Essential hypertension Diabetes mellitus B12 deficiency Non-toxic multinodular goiter Osteoporosis Post-surgical hypoparathyroidism History of primary hyperparathyroidism Surgical History Cataract S/P COLIN-BSO History of bladder suspension procedure H/O blepharoplasty Lipoma Status post fine needle aspiration S/P subtotal parathyroidectomy Family History Father CVD (cardiovascular disease) Myocardial infarct Mother Skin cancer Diabetes Renal failure Social History Housing: Apartment Alcohol intake: never Patient Tobacco Use Status: Never used Tobacco e-Cigarette/Vaping Use: Never Used Second Hand Smoke Exposure: No service: No Current occupational status: disabled Cognitive needs: Yes Hearing needs: No Vision needs: No Questionnaire PHQ-9 Over the last 2 weeks, how often have you been bothered by any of the following problems? 1. Little interest or pleasure in doing things: several days 2. Feeling down, depressed, or hopeless: several days 3. Trouble falling or staying asleep, or sleeping too much: several days 4. Feeling tired or having little energy: nearly every day 5. Poor appetite or overeating: not at all 6. Feeling bad about yourself - or that you are a failure or have let yourself or your family down: not at all 7. Trouble concentrating on things, such as reading the newspaper or watching television: several days 8. Moving or speaking so slowly that other people could have noticed. Or the opposite - being so fidgety or restless that you have been moving around a lot more than usual: not at all 9. Thoughts that you would be better off or of hurting yourself in some way: not at all Total score: 7 Depression Screening Interpretation: Negative Depression Screening Done: Yes [id number] - PHQ-9 Billing: Yes Source: Developed by Drs. Mandeep Bernard, Renee Pitts, Dariusz King and colleagues, with an educational mohit from [employer]. Thrive Questionnaire Date Thrive assessed: 07/07/23 I am a: Patient What is your living situation today?: I have a steady place to live Within the past 12 months, did the food you bought not last and you didn't have the money to get more?: Never true Within the past 12 months, did you worry whether your food would run out before you got money to buy more?: Never true Do you have trouble paying for medicines?: No Do you have trouble getting transportation to medical appointments?: No Do you have trouble paying your heating and electricity bill?: No Do you have trouble taking care of your child, family member or friend?: No Do you have trouble with day-to-day activities such as bathing, preparing meals, shopping, managing finances, etc.?: Yes Are you currently unemployed and looking for a job?: No Are you interested in more education?: No Please select the resources that you would like help with: None Currently or been in a relationship where the following occur: no concerns reported THRIVE Score: 0 AUDIT C Alcohol Use Questionnaire (AUDIT-C) 1. How often do you have a drink containing alcohol?: Never Total Score: 0 Score Reviewed/Action Taken: No JUAN DANIEL-7 AMB Questionnaire JUAN DANIEL-7 Date JUAN DANIEL - 7 assessed: 07/07/23 Feeling nervous, anxious, or on edge: 2 = More than half the days Not being able to stop or control worryin = Not at all Worrying too much about different things: 2 = More than half the days Trouble relaxin = Several days Being so restless that it is hard to sit still: 0 = Not at all Becoming easily annoyed or irritable: 0 = Not at all Feeling afraid as if something awful might happen: 0 = Not at all Total JUAN DANIEL-7 score (0-4 normal; 5-9 mild; 10-14 moderate; 15-21 severe): 5 Source: Developed by Drs. Mandeep Bernard, Renee Pitts, Dariusz King and colleagues, with an educational mohit from [employer]. JUAN DANIEL-7 Assessment Billing JUAN DANIEL-7 Assessment Tool: JUAN DANIEL-7 Assessment [id number] Review of Systems Const All systems reviewed & are unremarkable except as noted in HPI and below Eyes Reports no additional complaints, Denies change in vision and Denies other visual disturbances Card Denies chest pain at rest, Denies chest pain with activity, Denies edema, Denies irregular heart rhythm, Denies claudication, Denies dyspnea, Denies dyspnea on exertion, Denies orthopnea, Denies paroxysmal nocturnal dyspnea and Denies slow heart rate Resp Denies cough, Denies dyspnea and Denies dyspnea on exertion Neuro Reports confusion and Reports memory loss Psych Reports confusion and Reports memory loss Physical exam (Primary Care) Vital Signs: Last Vital Signs BP 110/72 07/07/23 08:26 BMI result Body Mass Index 26.4 Tobacco/Smoking Status: Tobacco use Status Tobacco use date assessed 07/07/23 07/07/23 08:33 Patient Tobacco Use Status Never used Tobacco 07/07/23 08:33 Tobacco use type 09/29/22 14:32 e-Cigarette/Vaping Use Never Used 07/07/23 08:33 PHQ-9: PHQ-9 Score PHQ-9: Total score 7 07/07/23 08:48 Depression Screening Interpretation: Negative Thrive Assessment: Date of Thrive Assessment Date Thrive assessed 07/07/23 07/07/23 08:33 Currently or been in a relationship where the following occur: no concerns reported Const General: confusion Orientation/consciousness: confusion Resp Effort & Inspection: normal respiratory effort Auscultation: clear to auscultation bilaterally Cardio Jugular venous distension: no JVD Rate: regular rate Rhythm: regular rhythm Heart sounds: S1 normal heart sound present and S2 normal heart sound present Neuro General: no focal motor deficits and confusion Cognition (Neuro): abnormal cognition Gait exam (Neuro): Assisted gait required Psych Affect: Sad affect present Results AMB Hemoglobin A1c AMB Hemoglobin A1c 5.7 % Last Edit by DAVID Morales on 07/07/23 08:34 Results Reviewed Results Reviewed: Laboratory Last Values Hgb A1c (Clinic) 5.7 % (4.0-6.0) 07/07/23 08:22 Assessment and Plan Assessment & Plan (1) Mild recurrent major depression: Code(s): F33.0 - Major depressive disorder, recurrent, mild Plan: Continue duloxetine. Follow-up with psychiatry. (2) Dementia: Code(s): F03.90 - Unspecified dementia, unspecified severity, without behavioral disturbance, psychotic disturbance, mood disturbance, and anxiety Plan: Follow-up with neurology. (3) Diabetes mellitus: Code(s): E11.9 - Type 2 diabetes mellitus without complications Qualifiers: Diabetes mellitus type: type 2 Diabetes mellitus care home insulin use: without middle or intermediate school principal use Diabetes mellitus complication status: without complication Qualified Code(s): E11.9 - Type 2 diabetes mellitus without complications Plan: Continue metformin. A1c goal is equal or less than 7%. (4) Dyslipidemia: Code(s): E78.5 - Hyperlipidemia, unspecified Plan: Continue statins. Repeat lipid panel. LDL goal is less than 70. (5) GERD (gastroesophageal reflux disease): Code(s): K21.9 - Gastro-esophageal reflux disease without esophagitis Plan: Continue PPIs. (6) Essential hypertension: Code(s): I10 - Essential (primary) hypertension Plan: Continue losartan and hydrochlorothiazide. Blood pressure goal is equal or less than 130/80 Orders: Orders SARS-CoV2/FLU/RSV Today R09.89 - Other specified symptoms and signs involving the circulatory and respiratory systems Lipid Panel 4 Months E78.5 - Hyperlipidemia, unspecified Vitamin D 25-OH Total 4 Months E55.9 - Vitamin D deficiency, unspecified AMB Hemoglobin A1c Today E11.9 - Type 2 diabetes mellitus without complications Microalbumin, Random (w Creat) 4 Months E11.9 - Type 2 diabetes mellitus without complications Vitamin B12 and Folate 4 Months E53.8 - Deficiency of other specified B group vitamins Comprehensive [place]. Panel Fast 4 Months E11.9 - Type 2 diabetes mellitus without complications Medications: Discontinued gabapentin Discontinued Reason: Patient Completed Course 100 mg PO BID 90 days 180 caps 1RF Coding Level of Care Code Est Pt Level 4 (76124) Diagnoses Mild recurrent major depression F33.0 Dementia F03.90 Type 2 diabetes mellitus without complication, without long-term current use of insulin E11.9 Diabetes mellitus type: type 2 Diabetes mellitus care home insulin use: without care home use Diabetes mellitus complication status: without complication Dyslipidemia E78.5 GERD (gastroesophageal reflux disease) K21.9 Essential hypertension I10 Additional Codes JUAN DANIEL-7 Assessment Billing - JUAN DANIEL-7 Assessment Tool: JUAN DANIEL-7 Assessment [id number] ([id number]) Time Spent (min) 25
== END 2023-07-07 09:10 | disposition home or self-care (01) ==
PROVIDERS: PCP Internal Medicine; Visit Provider Internal Medicine
DX: E11.69 Type 2 diabetes mellitus with other specified complication (principal); F33.0 Major depressive disorder, recurrent, mild; F03.90 Unspecified dementia, unspecified severity, without behavioral disturbance, psychotic disturbance, mood disturbance, and anxiety; E78.5 Hyperlipidemia, unspecified; K21.9 Gastro-esophageal reflux disease without esophagitis; I10 Essential (primary) hypertension
CPT/HCPCS: 83036; 99214

== ENCOUNTER 2023-07-07 09:23 | Outpatient (REF) | payer MEDICARE, MEDICAID, SELFPAY ==
[2023-07-07 10:38] LABS: Influenza A PCR NEGATIVE (Negative); Influenza B PCR NEGATIVE (Negative); Resp Syncy Virus RNA Qual PCR NEGATIVE (Negative); SARS COV2 PCR INHOUSE NEGATIVE (Negative)
== END 2023-07-07 09:24 | disposition home or self-care (01) ==
LOC: HO.LAB 09:23
PROVIDERS: PCP Internal Medicine; Visit Provider Internal Medicine
DX: R09.89 Other specified symptoms and signs involving the circulatory and respiratory systems (principal)
CPT/HCPCS: 0241U

== ENCOUNTER 2023-07-13 08:57 | Outpatient (AMB) | payer MEDICARE, MEDICAID, SELFPAY ==
[2023-07-13 09:00] VITALS: BP 108/72; PULSE 90; BMI 27.3
--- NOTE | 2023-07-13 09:00 | A.OFFVIS_ITS ---
Vital Signs 07/13/23 09:00 Height 5 ft 1 in Weight 144 lb 6.444 oz BMI 27.3 BP 108/72 Blood Pressure Location Lt brachial Position Sitting Pulse 90 Pulse Source Pulse Oximeter Intake Visit Reasons: f/u hypoparathyroidism, MNG Intake Note: Patient present today for Hypoparathyroidism follow up visit. Supervisor Throwing Department Required: Yes Supervisor Throwing Department Language: Pharmacy Laboratory Technician Name: Aaron Information Interpreted: non-clinical & clinical Accompanied by: Daughter in law Allergies Iodinated Contrast Media [IV CONTRAST] Allergy (Severe, Verified 07/13/23 09:05) ANAPHYLAXIS peanut Allergy (Severe, Verified 07/13/23 09:05) CAN'T BREATHE iodine Allergy (Intermediate, Verified 07/13/23 09:05) throat swelling lisinopril [LISINOPRIL] Allergy (Intermediate, Verified 07/13/23 09:05) COUGH, coughing gadobutrol [From GADAVIST] Allergy (Mild, Verified 07/13/23 09:05) HIVES tramadol [TRAMADOL] Adverse Reaction (Severe, Verified 07/13/23 09:05) VOMITING pseudoephedrine [PSEUDOEPHEDRINE] Adverse Reaction (Intermediate, Verified 07/13/23 09:05) HEART PALPITATIONS Medication List - Last Reconciled 07/13/23 by Mandeep Parker MD acetaminophen ER (Tylenol Arthritis Pain) 650 mg PO Q8H albuterol sulfate 90 mcg/actuation inhalation amitriptyline 25 mg PO DAILY 90 days amoxicillin-pot clavulanate 875-125 mg 1 tab PO BID atorvastatin 80 mg PO DAILY 90 days blood sugar diagnostic (FreeStyle Test strips) Use 1 test strip twice a day calcitriol 0.25 mcg PO DAILY calcium citrate-vitamin D3 315 mg-5 mcg (200 unit) (Calcium Citrate + D) 2 tabs PO DAILY 30 days cholecalciferol (vitamin D3) 50 mcg PO DAILY 90 days cyanocobalamin (vitamin B-12) 500 mcg sublingual DAILY 90 days duloxetine 30 mg PO BID 90 days epinephrine IM ezetimibe 10 mg PO DAILY 90 days fluticasone propionate 50 mcg/actuation intranasal hydrochlorothiazide 25 mg PO DAILY 90 days ipratropium bromide 2 sprays intranasal TID PRN lancets (FreeStyle Lancets) to check blood sugars twice a day linaclotide (Linzess) 72 mcg PO DAILY losartan 25 mg PO DAILY 90 days meclizine 25 mg PO DAILY PRN 90 days metformin ER 500 mg PO BID nystatin 1 appl topical DAILY 30 days omalizumab 150 mg subcut Q4W omeprazole 40 mg PO BID 30 days ondansetron HCl 4 mg PO PRN ropinirole 1 mg PO DAILY sucralfate 1 g PO DAILY 90 days Symbicort 160-4.5 mcg/actuation (budesonide-formoterol) 2 puffs inhalation BID 30 days NS topiramate 100 mg PO BID 90 days HPI Comments Details: 67 yo female , today for follow-up visit, 1 for post surgical hypoparathyroidism and NTMNG She is feeling well in general. She denies numbness, tingling. Perioral numbness. She is currently Calcitriol 0.25 mcg, calcium citrate 500 mg + D twice a day, HCTZ 25 mg daily Patient states calcitriol was stopped by primary care provider couple weeks ago. Patient is status post 3 03/23 parathyroidectomy, 1/ left inferior parathyroid gland left in see to her PTH before surgery was 73 pg/mL PTH dropped to 18 pg/mL after surgery. 05/01/2019. She had fine-needle aspiration of right thyroid nodule on 11/02/2018 , cytology was consistent with benign follicular nodule [place] category 2. For osteoporosis she is on Fosamax 70 mg weekly she is 100% adherent and she has a good method of administration. She has been on Fosamax for about 2 years. She had FNA of right mid pole nodule size 1.1 x 1.0 x 1.0 cm. on 11/03/17 cytology consistent with AUS, with Afirma negative. She has other PMH of HTN, DM 2 dyslipidmeia, osteoporosis. 03/31/17 CREAT 0.83 mg/DL GFR >60 ml/min 08/2016 B12 224 pg/ml Mild elevated calcium noted she has intermittent mild hypercalcemia since 2014 to 2017 ranges form 10.2 to 10.6 mg/DL, she had normal PTH in the past. She has constipation. She has decrease memory . 11/15/2019 AP SPINE L1-L4: Current: BMD 1.135 g/cm2, Z-score 1.4, T-score -0.4, normal, 4.9% decrease from previous, 1.6% increase from baseline (<5% change is not significant). Prior: BMD 1.193 g/cm2. Baseline: BMD 1.117 g/cm2. LEFT FEMUR, NECK: Current: BMD 0.800 g/cm2, Z-score -0.1, T-score -1.7, osteopenia. Prior: BMD 0.804 g/cm2. Baseline: BMD 0.811 g/cm2. LEFT FEMUR, TOTAL: Current: BMD 0.961 g/cm2, Z-score 0.9, T-score -0.4, normal, 1.4% decrease from previous, 0.4% increase from baseline. Prior: BMD 0.975 g/cm2. Baseline: BMD 0.957 g/cm2. RIGHT FOREARM RADIUS 33%: Current: BMD 0.705 g/cm2, Z-score -0.6, T-score -1.9, osteopenia, 11.0% increase from baseline (<5% change is not significant). Prior (initial/baseline for forearm): BMD 0.635 g/cm2. 10/30/2019 US thyroid Right Thyroid Lobe: 5.0 x 1.6 x 1.7 cm, volume 7.1 mL. Previously 5.5 x 1.7 x 1.8 cm, volume 8.5 mL Parenchyma: The gland echotexture is heterogeneous. Thyroid vascularity is normal. Left Thyroid Lobe: 5.0 x 1.4 x 1.9 cm, volume 6.9 mL. Previously 5.3 x 1.4 x 2.1 cm, volume 8.5 mL. Parenchyma: The gland echotexture is heterogeneous. Thyroid vascularity is normal. Isthmus: 0.2 cm in maximum AP dimension. Previously 0.2 cm. RIGHT THYROID LOBE: There are 3 nodules seen. 1. Location: Middle. Size: 0.6 x 0.4 x 0.5 cm. Previous: 0.6 x 0.4 x 0.5 cm. Nodule characteristics: Isoechoic with poorly defined margins. 2. Location: Middle. Size: 0.3 x 0.2 x 0.3 cm. Previous: 0.4 x 0.2 x 0.4 cm. Nodule characteristics: Hypoechoic with partially poorly defined margins. 3. Location: Inferior. Size: 0.9 x 0.7 x 1.0 cm. Previous: 1.4 x 0.8 x 1.2 cm. Nodule characteristics: Heterogeneous and predominately cystic. ISTHMUS: No nodules. LEFT THYROID LOBE: There are 4 nodules seen. 1. Location: Superior. Size: 0.5 x 0.3 x 0.5 cm. Previous: 0.6 x 0.2 x 0.4 cm. Nodule characteristics: Cystic. 2. Location: Middle. Size: 0.5 x 0.2 x 0.5 cm. Previous: 0.6 x 0.3 x 0.4 cm. Nodule characteristics: Well-circumscribed and hypoechoic. 3. Location: Middle. Size: 0.6 x 0.3 x 0.4 cm. Previous: 0.8 x 0.3 x 0.4 cm. Nodule characteristics: Well circumscribed hypoechoic. 4. Location: Middle. Size: 0.5 x 0.2 x 0.4 cm. Previous: 0.4 x 0.2 x 0.5 cm. Nodule characteristics: Well-circumscribed and hypoechoic. NODES: No lymphadenopathy is seen in the tissue surrounding the thyroid gland. Recent thyroid ultrasound shows no change in the size of the nodules Laboratory Tests 10/25/19 01/21/20 01/21/20 08:30 08:30 08:30 Hgb Hct Sodium Potassium Creatinine Estimated GFR Calcium Phosphorus Magnesium Alkaline Phosphatase Albumin N-Telopeptide X-linked 22 Vitamin B12 Vit D 1,25-Dihyd Total 23 25-OH Vitamin D Total Free T4 0.94 TSH PTH Intact Calcium (PTH Intact) Ur 24 Hour Volume Urine Creatinine 86 Ur Creatinine mg/dL Ur Creatinine 24 Hour Ur Calcium 24 Hr Calcium/Creat 24 Hr 02/07/20 02/07/20 03/31/20 Unknown Unknown 08:10 Hgb Hct Sodium Potassium Creatinine Estimated GFR Calcium Phosphorus Magnesium Alkaline Phosphatase Albumin N-Telopeptide X-linked Vitamin B12 Vit D 1,25-Dihyd Total 25-OH Vitamin D Total Free T4 TSH PTH Intact 9 L Calcium (PTH Intact) 9.9 Ur 24 Hour Volume 1425 Urine Creatinine Ur Creatinine mg/dL 54.43 Ur Creatinine 24 Hour 0.83 Ur Calcium 24 Hr 265 H Calcium/Creat 24 Hr 321 H 07/21/20 07/21/20 07/21/20 07:40 07:40 07:40 Hgb 10.8 L Hct 34.3 L Sodium 143 Potassium 4.2 Creatinine 0.93 Estimated GFR > 60 Calcium 9.6 Phosphorus 4.6 H Magnesium 1.9 Alkaline Phosphatase 55 Albumin 4.5 N-Telopeptide X-linked Vitamin B12 187 L Vit D 1,25-Dihyd Total 25-OH Vitamin D Total Free T4 TSH 2.94 PTH Intact Calcium (PTH Intact) Ur 24 Hour Volume Urine Creatinine Ur Creatinine mg/dL Ur Creatinine 24 Hour Ur Calcium 24 Hr Calcium/Creat 24 Hr 07/21/20 07:40 Hgb Hct Sodium Potassium Creatinine Estimated GFR Calcium Phosphorus Magnesium Alkaline Phosphatase Albumin N-Telopeptide X-linked Vitamin B12 Vit D 1,25-Dihyd Total 25-OH Vitamin D Total 40.1 Free T4 TSH PTH Intact Calcium (PTH Intact) Ur 24 Hour Volume Urine Creatinine Ur Creatinine mg/dL Ur Creatinine 24 Hour Ur Calcium 24 Hr Calcium/Creat 24 Hr Laboratory Tests 10/25/19 01/21/20 01/21/20 08:30 08:30 08:30 Sodium Potassium BUN Creatinine Estimated GFR Fasting Glucose Calcium Phosphorus Magnesium Alkaline Phosphatase Albumin N-Telopeptide X-linked 22 Vit D 1,25-Dihyd Total 23 25-OH Vitamin D Total 1,25 Dihydroxy Vit D 1,25 Dihydroxy Vit D2 1,25 Dihydroxy Vit D3 TSH 2.96 Free T4 0.94 PTH Intact Calcium (PTH Intact) Ur 24 Hour Volume Urine Creatinine 86 Ur Creatinine mg/dL Ur Creatinine 24 Hour Ur Calcium 24 Hr Calcium/Creat 24 Hr 02/07/20 02/07/20 03/31/20 Unknown Unknown 08:10 Sodium 144 Potassium 4.2 BUN 25 H Creatinine 0.82 Estimated GFR > 60 Fasting Glucose 89 Calcium 9.5 Phosphorus 4.2 Magnesium 1.8 Alkaline Phosphatase 59 Albumin 4.6 N-Telopeptide X-linked Vit D 1,25-Dihyd Total 25-OH Vitamin D Total 41.7 1,25 Dihydroxy Vit D 1,25 Dihydroxy Vit D2 1,25 Dihydroxy Vit D3 TSH Free T4 PTH Intact Calcium (PTH Intact) Ur 24 Hour Volume 1425 Urine Creatinine Ur Creatinine mg/dL 54.43 Ur Creatinine 24 Hour 0.83 Ur Calcium 24 Hr 265 H Calcium/Creat 24 Hr 321 H 03/31/20 03/31/20 08:10 08:10 Sodium Potassium BUN Creatinine Estimated GFR Fasting Glucose Calcium Phosphorus Magnesium Alkaline Phosphatase Albumin N-Telopeptide X-linked Vit D 1,25-Dihyd Total 25-OH Vitamin D Total 1,25 Dihydroxy Vit D 19 1,25 Dihydroxy Vit D2 <8 1,25 Dihydroxy Vit D3 19 TSH Free T4 PTH Intact 9 L Calcium (PTH Intact) 9.9 Ur 24 Hour Volume Urine Creatinine Ur Creatinine mg/dL Ur Creatinine 24 Hour Ur Calcium 24 Hr Calcium/Creat 24 Hr No sx of hypocalcemia PFSH Medical History Mild recurrent major depression Skin lesion Cognitive impairment Encounter for Medicare annual wellness exam Dyslipidemia Essential hypertension Diabetes mellitus B12 deficiency Non-toxic multinodular goiter Osteoporosis Post-surgical hypoparathyroidism History of primary hyperparathyroidism Surgical History Cataract S/P COLIN-BSO History of bladder suspension procedure H/O blepharoplasty Lipoma Status post fine needle aspiration S/P subtotal parathyroidectomy Family History Father CVD (cardiovascular disease) Myocardial infarct Mother Skin cancer Diabetes Renal failure Social History Housing: Apartment Alcohol intake: never Patient Tobacco Use Status: Never used Tobacco e-Cigarette/Vaping Use: Never Used Second Hand Smoke Exposure: No service: No Current occupational status: disabled Cognitive needs: Yes Hearing needs: No Vision needs: No Physical Exam Const Other: Healed scar status post parathyroidectomy. Thyroid gland is normal size weighs by 15 g . There are no thyroid nodules palpated Assessment & Plan Assessment & Plan (1) Post-surgical hypoparathyroidism: Code(s): E89.2 - Postprocedural hypoparathyroidism Category: Medical Plan: This is a 66-year-old female with a history of primary hyperparathyroidism status post removal 3-2 parathyroids with post-operative hypoparathyroidism. She is currently be replaced with calcium, vitamin-D, calcitriol 0.25 mcg q.d. as well as hydrochlorothiazide. Her last calcium level was low normal and within range and urinary calciums have been normal in past Plan is to continue the current regimen and resume calcitriol. Patient is somewhat symptomatic intermittently and might be a good candidate for recombinant PTH once it is available again (2) Non-toxic multinodular goiter: Code(s): E04.2 - Nontoxic multinodular goiter Category: Medical Plan: Nodules are all subcentimeter in size and has undergone several biopsies in the past with benign cytology. She appears to be clinically euthyroid. Recent thyroid ultrasound shows stability in the size of the nodules Plan is to repeat a thyroid ultrasound in 2 years time Orders: Orders Albumin Level 6 Months E89.2 - Postprocedural hypoparathyroidism Calcium 6 Months E89.2 - Postprocedural hypoparathyroidism Phosphorus 6 Months E89.2 - Postprocedural hypoparathyroidism Coding Level of Care Code Est Pt Level 3 (52635) Diagnoses Post-surgical hypoparathyroidism E89.2 Non-toxic multinodular goiter E04.2
== END 2023-07-13 09:17 | disposition home or self-care (01) ==
PROVIDERS: PCP Internal Medicine; Visit Provider Internal Medicine Endocrinology, Diabetes & Metabolism
DX: E89.2 Postprocedural hypoparathyroidism (principal); E04.2 Nontoxic multinodular goiter
CPT/HCPCS: 99213

== ENCOUNTER → 2023-07-13 08:57 | Outpatient (BNVA) | payer MEDICARE, MEDICAID, SELFPAY | PROVIDERS: Visit Provider Internal Medicine Endocrinology, Diabetes & Metabolism | DX: E89.2 Postprocedural hypoparathyroidism (principal); E04.2 Nontoxic multinodular goiter | CPT/HCPCS: 99212 ==

== ENCOUNTER 2023-07-19 08:56 | Outpatient (AMB) | payer MEDICARE, MEDICAID, SELFPAY ==
--- NOTE | 2023-07-19 09:01 | A.OFFVIS_ITS ---
Vital Signs 07/19/23 09:02 Height 5 ft 1 in Weight 144 lb 6.444 oz BMI 27.3 BP 102/66 Blood Pressure Location Rt brachial Position Sitting Pulse 80 Pulse Source Doppler Pulse Oximetry (%) 99 Oxygen Delivery Method Room Air Intake Visit Reasons: asthma Allergies Iodinated Contrast Media [IV CONTRAST] Allergy (Severe, Verified 07/13/23 09:05) ANAPHYLAXIS peanut Allergy (Severe, Verified 07/13/23 09:05) CAN'T BREATHE iodine Allergy (Intermediate, Verified 07/13/23 09:05) throat swelling lisinopril [LISINOPRIL] Allergy (Intermediate, Verified 07/13/23 09:05) COUGH, coughing gadobutrol [From GADAVIST] Allergy (Mild, Verified 07/13/23 09:05) HIVES tramadol [TRAMADOL] Adverse Reaction (Severe, Verified 07/13/23 09:05) VOMITING pseudoephedrine [PSEUDOEPHEDRINE] Adverse Reaction (Intermediate, Verified 07/13/23 09:05) HEART PALPITATIONS HPI HPI asthma: Details: 67-year-old lady, nonsmoker, followed for underlying severe persistent allergic asthma, GERD, and environmental allergies. She continues on Xolair, Symbicort, omeprazole, and albuterol MDI with good control of her symptoms. She denies recent exacerbations. [facility] Medical History Mild recurrent major depression Skin lesion Cognitive impairment Encounter for Medicare annual wellness exam Dyslipidemia Essential hypertension Diabetes mellitus B12 deficiency Non-toxic multinodular goiter Osteoporosis Post-surgical hypoparathyroidism History of primary hyperparathyroidism Surgical History Cataract S/P COLIN-BSO History of bladder suspension procedure H/O blepharoplasty Lipoma Status post fine needle aspiration S/P subtotal parathyroidectomy Family History Father CVD (cardiovascular disease) Myocardial infarct Mother Skin cancer Diabetes Renal failure Social History Housing: Apartment Alcohol intake: never Patient Tobacco Use Status: Never used Tobacco e-Cigarette/Vaping Use: Never Used Second Hand Smoke Exposure: No service: No Current occupational status: disabled Cognitive needs: Yes Hearing needs: No Vision needs: No Review of Systems Const Denies daytime sleepiness, Denies excessive sweating, Denies fatigue, Denies fever(s), Denies lethargy, Denies malaise, Denies night sweats, Denies snoring and Denies weight loss Eyes Denies blurry vision and Denies itchy eyes ENT Denies nasal congestion, Denies post nasal drip, Denies sinus pain, Denies sinus pressure and Denies other ( Thrush) Card Denies chest pain, Denies pedal edema, Denies dyspnea, Denies orthopnea and Denies paroxysmal nocturnal dyspnea Resp Denies cough, Denies hemoptysis, Denies excessive phlegm production, Denies dyspnea, Denies snoring and Denies wheezing GI Denies abdominal pain and Denies heartburn Musc Denies myalgias, Denies arthralgias and Denies joint swelling Skin/Breast Denies rash Neuro Denies memory loss and Denies seizure-like activity Psych Denies abnormal sleep pattern, Denies anxiety and Denies memory loss Endo Denies excessive sweating, Denies fatigue and Denies heat intolerance Lakhwinder/Lymph Denies easy bruising Aller/Immun Denies itchy eyes, Denies seasonal rhinorrhea and Denies wheezing Physical Exam Vital Signs: Last Vital Signs Pulse 80 07/19/23 09:02 BP 102/66 07/19/23 09:02 Pulse Ox 99 07/19/23 09:02 Oxygen Delivery Method Room Air 07/19/23 09:02 BMI result Body Mass Index 27.3 Const General: no acute distress and alert Nutritional Appearance: not obese Orientation/consciousness: Other orientation findings ( oriented) HEENT Head: Yes atraumatic Eyes General: appearance normal, both eyes and all related structures Sclerae: sclerae normal EOM: EOMs intact bilaterally Neck Neck: Yes supple Lymphatic: no lymphadenopathy noted Resp Effort & Inspection: normal respiratory effort and no use of accessory muscles Auscultation: clear to auscultation bilaterally Cardio Rate: regular rate Rhythm: regular rhythm Heart sounds: no gallops, no murmurs and no rubs Skin General skin exam: other ( warm) Extrem General: No clubbing, No cyanosis and No edema Assessment & Plan Assessment & Plan (1) Asthma: Code(s): J45.909 - Unspecified asthma, uncomplicated Category: Medical Plan: Well controlled on Xolair, Symbicort, and albuterol MDI. Continue current regimen. (2) Environmental allergies: Code(s): Z91.09 - Other allergy status, other than to drugs and biological substances Category: Medical Plan: Well controlled on Xolair. Continue current regimen. (3) GERD (gastroesophageal reflux disease): Code(s): K21.9 - Gastro-esophageal reflux disease without esophagitis Category: Medical Plan: Well controlled on omeprazole. Continue current regimen. Coding Level of Care Code Est Pt Level 4 (58372) Diagnoses Asthma J45.909 Environmental allergies Z91.09 GERD (gastroesophageal reflux disease) K21.9
[2023-07-19 09:02] VITALS: BP 102/66; PULSE 80; O2SAT 99; BMI 27.3
== END 2023-07-19 09:16 | disposition home or self-care (01) ==
PROVIDERS: PCP Internal Medicine; Visit Provider Internal Medicine Pulmonary Disease
DX: J45.909 Unspecified asthma, uncomplicated (principal); Z91.09 Other allergy status, other than to drugs and biological substances; K21.9 Gastro-esophageal reflux disease without esophagitis
CPT/HCPCS: 99214

== ENCOUNTER → 2023-07-19 08:56 | Outpatient (BNVA) | payer MEDICARE, MEDICAID, SELFPAY | PROVIDERS: PCP Internal Medicine; Visit Provider Internal Medicine Pulmonary Disease | DX: J45.909 Unspecified asthma, uncomplicated (principal); Z91.09 Other allergy status, other than to drugs and biological substances; K21.9 Gastro-esophageal reflux disease without esophagitis | CPT/HCPCS: 99212 ==

== ENCOUNTER 2023-08-02 13:27 | Outpatient (REF) | payer MEDICARE, MEDICAID, SELFPAY ==
[2023-08-02 14:35] LABS: Anion Gap 13 (12-20); Blood Urea Nitrogen 27 mg/dL (9-16); Calcium 9.6 mg/dL (8.4-10.2); Carbon Dioxide 25 mmol/L (22-29); Chloride 108 mmol/L (96-108); Estimated Glomerular Filt Rate > 60; Glucose Random 85 mg/dL (60-115); Potassium 4.1 mmol/L (3.3-5.1); Sodium 142 mmol/L (135-145)
[2023-08-02 14:52] LABS: T4 Thyroxine 6.9 ug/dL (4.5-12.0); Thyroid Stimulating Hormone 1.43 uIU/mL (0.32-4.0)
[2023-08-02 15:05] LABS: Folate 14.6 ng/mL (> or = 4.0); Vitamin B12 1197 pg/mL (200-900)
== END 2023-08-02 13:28 | disposition home or self-care (01) ==
LOC: HO.LAB 13:27
PROVIDERS: PCP Internal Medicine; Visit Provider Psychiatry & Neurology Neurology
DX: G43.909 Migraine, unspecified, not intractable, without status migrainosus (principal)
CPT/HCPCS: 36415; 80048; 82607; 82746; 84436; 84443

== ENCOUNTER 2023-11-18 08:29 | Outpatient (REF) | payer MEDICARE, MEDICAID, SELFPAY ==
[2023-11-18 11:16] LABS: Alanine Aminotransferase 15 U/L (0-31); Albumin Level 4.2 g/dL (3.5-5.0); Alkaline Phosphatase 79 U/L (39-117); Anion Gap 12 (12-20); Aspartate Amino Transferase 20 U/L (5-31); Bilirubin Total 0.4 mg/dL (0.0-1.0); Blood Urea Nitrogen 24 mg/dL (9-16); Carbon Dioxide 25 mmol/L (22-29); Chloride 110 mmol/L (96-108); Cholesterol 179 mg/dL (<200); Estimated Glomerular Filt Rate 58; Glucose Fasting 93 mg/dL (60-99); HDL Cholesterol 49 mg/dL (>40); LDL Cholesterol Calculated 107 mg/dL (<100); Potassium 4.2 mmol/L (3.3-5.1); Sodium 143 mmol/L (135-145); Total Protein 7.2 g/dL (6.5-8.0); Triglycerides 119 mg/dL (<150)
[2023-11-18 11:32] LABS: Vitamin D 25-OH Total 41.4 ng/mL (>30)
[2023-11-18 11:46] LABS: Folate 11.9 ng/mL (> or = 4.0); Vitamin B12 825 pg/mL (200-900)
[2023-11-18 12:22] LABS: Creatinine Urine 104.45 mg/dL; Microalbum/Creatinine Ratio Ur 6.7 ug/mg cr (<30)
== END 2023-11-18 08:30 | disposition home or self-care (01) ==
LOC: HO.10HDL 08:29
PROVIDERS: Visit Provider Internal Medicine
DX: E11.9 Type 2 diabetes mellitus without complications (principal); E78.5 Hyperlipidemia, unspecified; E55.9 Vitamin D deficiency, unspecified; E53.8 Deficiency of other specified B group vitamins
CPT/HCPCS: 36415; 80053; 80061; 82043; 82306; 82570; 82607; 82746

== ENCOUNTER 2023-11-22 10:50 | Outpatient (AMB) | payer MEDICARE, MEDICAID, SELFPAY ==
--- NOTE | 2023-11-22 10:53 | A.OFFPC_ITS ---
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 Accompanied by: daughter in law Allergies Iodinated Contrast Media [IV CONTRAST] Allergy (Severe, Verified 11/22/23 11:05) ANAPHYLAXIS peanut Allergy (Severe, Verified 11/22/23 11:05) CAN'T BREATHE iodine Allergy (Intermediate, Verified 11/22/23 11:05) throat swelling lisinopril [LISINOPRIL] Allergy (Intermediate, Verified 11/22/23 11:05) COUGH, coughing gadobutrol [From GADAVIST] Allergy (Mild, Verified 11/22/23 11:05) HIVES tramadol [TRAMADOL] Adverse Reaction (Severe, Verified 11/22/23 11:05) VOMITING pseudoephedrine [PSEUDOEPHEDRINE] Adverse Reaction (Intermediate, Verified 11/22/23 11:05) HEART PALPITATIONS Medication List - Last Reconciled 11/22/23 by Cheli Beebe MD acetaminophen ER (Tylenol Arthritis Pain) 650 mg PO Q8H albuterol sulfate 90 mcg/actuation inhalation amitriptyline 25 mg PO DAILY 90 days atorvastatin 80 mg PO DAILY 90 days blood pressure monitor As directed blood sugar diagnostic (FreeStyle Test strips) Use 1 test strip twice a day calcitriol 0.25 mcg PO DAILY calcium citrate-vitamin D3 315 mg-5 mcg (200 unit) (Calcium Citrate + D) 2 tabs PO DAILY 30 days cholecalciferol (vitamin D3) 50 mcg PO DAILY 90 days cyanocobalamin (vitamin B-12) 500 mcg sublingual DAILY 90 days duloxetine 30 mg PO BID 90 days epinephrine IM ezetimibe 10 mg PO DAILY 90 days fluticasone propionate 50 mcg/actuation intranasal hydrochlorothiazide 25 mg PO DAILY 90 days hydrocortisone 2.5% (Proctosol HC) 1 appl TN BID-QID PRN 30 days ipratropium bromide 2 sprays intranasal TID PRN lancets (FreeStyle Lancets) to check blood sugars twice a day linaclotide (Linzess) 72 mcg PO DAILY losartan 25 mg PO DAILY 90 days meclizine 25 mg PO DAILY PRN 90 days metformin ER 500 mg PO BID nystatin 1 appl topical DAILY 30 days omalizumab 150 mg subcut Q4W omeprazole 40 mg PO BID 30 days ondansetron HCl 4 mg PO PRN ropinirole 1 mg PO DAILY sucralfate 1 g PO DAILY 90 days Symbicort 160-4.5 mcg/actuation (budesonide-formoterol) 2 puffs inhalation BID 30 days NS topiramate 100 mg PO BID 90 days Tobacco use date assessed: 07/07/23 Fall risk assessment: No Falls in past year Last assessed Fall Risk: 11/22/23 Dental Screening Dental Screen Date: 07/07/23 HPI HPI Comments History of Present Illness Details This is a 68-year-old female with diabetes mellitus type 2, hypertension, dyslipidemia, mild recurrent major depression and dementia that comes today accompanied by daughter in-law for follow-up on her conditions. A1c within goal. Blood pressure stable. LDL not on goal and she is already on atorvastatin 80 mg and Zetia. I will add fenofibrate. Depression somewhat stable with Cymbalta. Still has diffuse joint pain due to fibromyalgia and I will start her on Lyrica. Was evaluated by Rheumatology multiple times. Last time was 20:23 at arthritis treatment center which did recommend Lyrica. She does have dementia that has not significantly changed and this is follow by Neurology. Denies any chest pain or shortness on breath. Walks with a cane for gait stability. [facility] Medical History (Updated 11/22/23 @ 12:19 by Cheli Beebe MD) Mild recurrent major depression Skin lesion Cognitive impairment Encounter for Medicare annual wellness exam Dyslipidemia Essential hypertension Diabetes mellitus B12 deficiency Non-toxic multinodular goiter Osteoporosis Post-surgical hypoparathyroidism History of primary hyperparathyroidism Surgical History Cataract S/P COLIN-BSO History of bladder suspension procedure H/O blepharoplasty Lipoma Status post fine needle aspiration S/P subtotal parathyroidectomy Family History Father CVD (cardiovascular disease) Myocardial infarct Mother Skin cancer Diabetes Renal failure Social History Housing: Apartment Alcohol intake: never Patient Tobacco Use Status: Never used Tobacco e-Cigarette/Vaping Use: Never Used Second Hand Smoke Exposure: No service: No Current occupational status: disabled Cognitive needs: Yes Hearing needs: No Vision needs: No Questionnaire Thrive Questionnaire Date Thrive assessed: 07/07/23 JUAN DANIEL-7 AMB Questionnaire JUAN DANIEL-7 Date JUAN DANIEL - 7 assessed: 07/07/23 Source: Developed by Drs. Mandeep Bernard, Renee Pitts, Dariusz King and colleagues, with an educational mohit from [employer]. Review of Systems Const All systems reviewed & are unremarkable except as noted in HPI and below Card Denies chest pain at rest, Denies chest pain with activity, Denies edema, Denies irregular heart rhythm, Denies claudication, Denies dyspnea, Denies dyspnea on exertion, Denies orthopnea, Denies paroxysmal nocturnal dyspnea and Denies slow heart rate Resp Denies cough, Denies dyspnea and Denies dyspnea on exertion Musc Denies atrophy, Denies deformity and Denies limited range of motion Physical exam (Primary Care) Vital Signs: Last Vital Signs BP 112/76 11/22/23 10:54 BMI result Body Mass Index 27.4 Tobacco/Smoking Status: Tobacco use Status Tobacco use date assessed 07/07/23 11/22/23 10:53 Patient Tobacco Use Status Never used Tobacco 11/22/23 10:53 Tobacco use type 07/13/23 09:15 e-Cigarette/Vaping Use Never Used 11/22/23 10:53 Thrive Assessment: Date of Thrive Assessment Date Thrive assessed 07/07/23 11/22/23 10:53 Const Limitations: ambulation with cane Resp Effort & Inspection: normal respiratory effort Auscultation: clear to auscultation bilaterally Cardio Jugular venous distension: no JVD Rate: regular rate Rhythm: regular rhythm Heart sounds: S1 normal heart sound present and S2 normal heart sound present Extrem General: Yes full ROM Results AMB Hemoglobin A1c AMB Hemoglobin A1c 6.1 % Last Edit by DAVID Morales on 11/22/23 11:0 6 Results Reviewed Results Reviewed: Laboratory Last Values Hgb A1c (Clinic) 6.1 % (4.0-6.0) H 11/22/23 10:53 Assessment and Plan Assessment & Plan (1) Diabetes mellitus: Code(s): E11.9 - Type 2 diabetes mellitus without complications Qualifiers: Diabetes mellitus type: type 2 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 A1c goal is equal or less than 7%. (2) Essential hypertension: Code(s): I10 - Essential (primary) hypertension Plan: Continue losartan and hydrochlorothiazide. Blood pressure goal is equal or less than 130/80. (3) Dyslipidemia: Code(s): E78.5 - Hyperlipidemia, unspecified Plan: Continue statins and Zetia. Start fibrates. LDL goal is less than 70. (4) Mild recurrent major depression: Code(s): F33.0 - Major depressive disorder, recurrent, mild Plan: Continue Cymbalta. (5) Dementia: Code(s): F03.90 - Unspecified dementia, unspecified severity, without behavioral distur bance, psychotic disturbance, mood disturbance, and anxiety Qualifiers: Dementia type: Alzheimer's Alzheimer's disease onset: early onset Dementia severity: mild Dementia behavioral or psychological symptom: with mood disturbance Qualified Code(s): G30.0 - Alzheimer's disease with early onset; F02.A3 - Dementia in other diseases classified elsewhere, mild, with mood disturbance Plan: Follow-up with Neurology. Orders: Orders AMB Hemoglobin A1c Today E11.9 - Type 2 diabetes mellitus without complications Lipid Panel 4 Months E78.5 - Hyperlipidemia, unspecified Microalbumin, Random (w Creat) 4 Months E11.9 - Type 2 diabetes mellitus without complications Vitamin D 25-OH Total 4 Months E55.9 - Vitamin D deficiency, unspecified Comprehensive [place]. Panel Fast 4 Months E11.9 - Type 2 diabetes mellitus without complications Vitamin B12 and Folate 4 Months E53.8 - Deficiency of other specified B group vitamins Medications: New fenofibrate 54 mg PO DAILY 90 tabs 1RF 90 days pregabalin 25 mg PO BID 60 caps 0RF 30 days Changed From ondansetron HCl 4 mg PO PRN To ondansetron HCl 4 mg PO BID PRN 60 tabs 1RF nausea and vomiting 30 days From epinephrine IM To epinephrine 0.3 mL IM ONCE PRN 2 ea 1RF anaphylaxis 30 days Refilled cyanocobalamin (vitamin B-12) 500 mcg sublingual DAILY 90 tabs 1RF 90 days E53.8 - Deficiency of other specified B group vitamins ezetimibe 10 mg PO DAILY 90 tabs 1RF 90 days hydrochlorothiazide 25 mg PO DAILY 90 tabs 3RF 90 days E89.2 - Postprocedural hypoparathyroidism losartan 25 mg PO DAILY 90 tabs 1RF 90 days I10 - Essential (primary) hypertension meclizine 25 mg PO DAILY PRN 90 tabs 0RF dizziness 90 days atorvastatin 80 mg PO DAILY 90 tabs 3RF 90 days calcium citrate-vitamin D3 315 mg-5 mcg (200 unit) (Calcium Citrate + D) 2 tabs PO DAILY 60 tabs 6RF 30 days E89.2 - Postprocedural hypoparathyroidism cholecalciferol (vitamin D3) 50 mcg PO DAILY 90 caps 0RF 90 days calcitriol 0.25 mcg PO DAILY 30 caps 10RF duloxetine 30 mg PO BID 180 caps 1RF 90 days metformin ER 500 mg PO BID 180 tabs 2RF omeprazole 40 mg PO BID 60 caps 6RF 30 days Coding Level of Care Code Est Pt Level 4 (42107) Complex EM visit Add On G2211 Diagnoses Type 2 diabetes mellitus without complication, without long-term current use of insulin E11.9 Diabetes mellitus type: type 2 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
[2023-11-22 10:54] VITALS: BP 112/76; BMI 27.4
== END 2023-11-22 11:29 | disposition home or self-care (01) ==
PROVIDERS: PCP Internal Medicine; Visit Provider Internal Medicine
DX: E11.69 Type 2 diabetes mellitus with other specified complication (principal); F33.0 Major depressive disorder, recurrent, mild; G30.0 Alzheimer's disease with early onset; F02.A3 Dementia in other diseases classified elsewhere, mild, with mood disturbance; I10 Essential (primary) hypertension; E78.5 Hyperlipidemia, unspecified
CPT/HCPCS: 83036; 99214; G2211

== ENCOUNTER 2024-01-19 08:52 | Outpatient (AMB) | payer MEDICARE, MEDICAID, SELFPAY ==
[2024-01-19 08:56] VITALS: BP 109/67; PULSE 87; O2SAT 98; BMI 27.7
--- NOTE | 2024-01-19 08:56 | A.OFFVIS_ITS ---
Vital Signs 01/19/24 08:56 Height 5 ft 1 in Weight 146 lb 9.718 oz BMI 27.7 BP 109/67 Blood Pressure Location Rt brachial Position Sitting Pulse 87 Pulse Source Doppler Pulse Oximetry (%) 98 Oxygen Delivery Method Room Air Intake Visit Reasons: asthma Allergies Iodinated Contrast Media [IV CONTRAST] Allergy (Severe, Verified 01/19/24 09:03) ANAPHYLAXIS peanut Allergy (Severe, Verified 01/19/24 09:03) CAN'T BREATHE iodine Allergy (Intermediate, Verified 01/19/24 09:03) throat swelling lisinopril [LISINOPRIL] Allergy (Intermediate, Verified 01/19/24 09:03) COUGH, coughing gadobutrol [From GADAVIST] Allergy (Mild, Verified 01/19/24 09:03) HIVES tramadol [TRAMADOL] Adverse Reaction (Severe, Verified 01/19/24 09:03) VOMITING pseudoephedrine [PSEUDOEPHEDRINE] Adverse Reaction (Intermediate, Verified 01/19/24 09:03) HEART PALPITATIONS HPI HPI asthma: Details: 68-year-old lady, nonsmoker, followed for underlying severe persistent allergic asthma, GERD, and environmental allergies. Patient had COVID-19 summer and then several other infections, thus she stopped using her Xolair. She continues on Symbicort and albuterol MDI for underlying asthma and omeprazole for GERD. She denies recent exacerbations. [facility] Medical History Mild recurrent major depression Skin lesion Cognitive impairment Encounter for Medicare annual wellness exam Dyslipidemia Essential hypertension Diabetes mellitus B12 deficiency Non-toxic multinodular goiter Osteoporosis Post-surgical hypoparathyroidism History of primary hyperparathyroidism Surgical History Cataract S/P COLIN-BSO History of bladder suspension procedure H/O blepharoplasty Lipoma Status post fine needle aspiration S/P subtotal parathyroidectomy Family History Father CVD (cardiovascular disease) Myocardial infarct Mother Skin cancer Diabetes Renal failure Social History Housing: Apartment Alcohol intake: never Patient Tobacco Use Status: Never used Tobacco e-Cigarette/Vaping Use: Never Used Second Hand Smoke Exposure: No service: No Current occupational status: disabled Cognitive needs: Yes Hearing needs: No Vision needs: No Review of Systems Const Denies daytime sleepiness, Denies excessive sweating, Denies fatigue, Denies f ever(s), Denies lethargy, Denies malaise, Denies night sweats, Denies snoring and Denies weight loss Eyes Denies blurry vision and Denies itchy eyes ENT Denies nasal congestion, Denies post nasal drip, Denies sinus pain, Denies sinus pressure and Denies other ( Thrush) Card Denies chest pain, Denies pedal edema, Denies dyspnea, Denies orthopnea and Denies paroxysmal nocturnal dyspnea Resp Denies cough, Denies hemoptysis, Denies excessive phlegm production, Denies dyspnea, Denies snoring and Denies wheezing GI Denies abdominal pain and Denies heartburn Musc Denies myalgias, Denies arthralgias and Denies joint swelling Skin/Breast Denies rash Neuro Denies memory loss and Denies seizure-like activity Psych Denies abnormal sleep pattern, Denies anxiety and Denies memory loss Endo Denies excessive sweating, Denies fatigue and Denies heat intolerance Lakhwinder/Lymph Denies easy bruising Aller/Immun Denies itchy eyes, Denies seasonal rhinorrhea and Denies wheezing Physical Exam Vital Signs: Last Vital Signs Pulse 87 01/19/24 08:56 BP 109/67 01/19/24 08:56 Pulse Ox 98 01/19/24 08:56 Oxygen Delivery Method Room Air 01/19/24 08:56 BMI result Body Mass Index 27.7 Const General: no acute distress and alert Nutritional Appearance: not obese Orientation/consciousness: Other orientation findings ( oriented) HEENT Head: Yes atraumatic Eyes General: appearance normal, both eyes and all related structures Sclerae: sclerae normal EOM: EOMs intact bilaterally Neck Neck: Yes supple Lymphatic: no lymphadenopathy noted Resp Effort & Inspection: normal respiratory effort and no use of accessory muscles Auscultation: clear to auscultation bilaterally Cardio Rate: regular rate Rhythm: regular rhythm Heart sounds: no gallops, no murmurs and no rubs Skin General skin exam: other ( warm) Extrem General: No clubbing, No cyanosis and No edema Assessment & Plan Assessment & Plan (1) Environmental allergies: Code(s): Z91.09 - Other allergy status, other than to drugs and biological substances Category: Medical Plan: Worsening control of Xolair, expect to improve with restarting Xolair. (2) Asthma: Code(s): J45.909 - Unspecified asthma, uncomplicated Category: Medical Plan: Suboptimal control off Xolair. Restart Xolair. Continue Symbicort and albuterol MDI. (3) GERD (gastroesophageal reflux disease): Code(s): K21.9 - Gastro-esophageal reflux disease without esophagitis Category: Medical Plan: Well controlled on omeprazole 40 b.i.d.. Continue current regimen. Coding Level of Care Code Est Pt Level 4 (81377) Diagnoses Environmental allergies Z91.09 Asthma J45.909 GERD (gastroesophageal reflux disease) K21.9
== END 2024-01-19 09:15 | disposition home or self-care (01) ==
LOC: HO.HPS 08:53
PROVIDERS: PCP Internal Medicine; Visit Provider Internal Medicine Pulmonary Disease
DX: Z91.09 Other allergy status, other than to drugs and biological substances (principal); J45.909 Unspecified asthma, uncomplicated; K21.9 Gastro-esophageal reflux disease without esophagitis
CPT/HCPCS: 99214

== ENCOUNTER → 2024-01-19 08:52 | Outpatient (BNVA) | payer MEDICARE, MEDICAID, SELFPAY | PROVIDERS: PCP Internal Medicine; Visit Provider Internal Medicine Pulmonary Disease | DX: Z91.09 Other allergy status, other than to drugs and biological substances (principal); J45.909 Unspecified asthma, uncomplicated; K21.9 Gastro-esophageal reflux disease without esophagitis | CPT/HCPCS: 99212 ==

== ENCOUNTER 2024-02-07 08:35 | Outpatient (REF) | payer MEDICARE, MEDICAID, SELFPAY ==
[2024-02-07 11:37] LABS: Albumin Level 4.4 g/dL (3.5-5.0); Calcium 9.7 mg/dL (8.4-10.2); Phosphorus 3.3 mg/dL (2.7-4.5)
== END 2024-02-07 08:36 | disposition home or self-care (01) ==
LOC: HO.10HDL 08:35
PROVIDERS: Visit Provider Internal Medicine Endocrinology, Diabetes & Metabolism
DX: E89.2 Postprocedural hypoparathyroidism (principal)
CPT/HCPCS: 36415; 82040; 82310; 84100

== ENCOUNTER 2024-02-13 08:56 | Outpatient (AMB) | payer MEDICARE, MEDICAID, SELFPAY ==
--- NOTE | 2024-02-13 08:57 | A.OFFVIS_ITS ---
Vital Signs 02/13/24 09:06 Height 5 ft 1.18 in Weight 146 lb 6.191 oz BMI 27.5 BP 102/66 Blood Pressure Location Rt brachial Position Sitting Pulse 96 Pulse Source Pulse Oximeter Intake Visit Reasons: f/u hypoparathryoidism-confirmed Intake Note: Patient present today for Hypoparathyroidism follow up visit. 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 Services: Oil Well Shooter Present Oil Well Shooter Name: Medhat Information Interpreted: non-clinical & clinical Accompanied by: [id number] Allergies Iodinated Contrast Media [IV CONTRAST] Allergy (Severe, Verified 02/13/24 09:07) ANAPHYLAXIS peanut Allergy (Severe, Verified 02/13/24 09:07) CAN'T BREATHE iodine Allergy (Intermediate, Verified 02/13/24 09:07) throat swelling lisinopril [LISINOPRIL] Allergy (Intermediate, Verified 02/13/24 09:07) COUGH, coughing gadobutrol [From GADAVIST] Allergy (Mild, Verified 02/13/24 09:07) HIVES tramadol [TRAMADOL] Adverse Reaction (Severe, Verified 02/13/24 09:07) VOMITING pseudoephedrine [PSEUDOEPHEDRINE] Adverse Reaction (Intermediate, Verified 1 04/14/23 09:07) HEART PALPITATIONS HPI Comments Details: 68 yo female , today for follow-up visit, 1 for post surgical hypoparathyroi dism and NTMNG She is feeling well in general. She denies numbness, tingling. Perioral numbness. She is currently Calcitriol 0.25 mcg, calcium citrate 500 mg + D twice a day, HCTZ 25 mg daily Patient states calcitriol was stopped by primary care provider couple weeks ago. Patient is status post 3 03/23 parathyroidectomy, 1/2 left inferior parathyroid gland left in see to her PTH before surgery was 73 pg/mL PTH dropped to 18 pg/mL after surgery. 05/01/2019. She had fine-needle aspiration of right thyroid nodule on 11/02/2018 , cytology was consistent with benign follicular nodule Marshall category 2. For osteoporosis she is on Fosamax 70 mg weekly she is 100% adherent and she has a good method of administration. She has been on Fosamax for about 2 ye ars. She had FNA of right mid pole nodule size 1.1 x 1.0 x 1.0 cm. on 11/03/17 cytology consistent with AUS, with Afirma negative. She has other PMH of HTN, DM 2 dyslipidmeia, osteoporosis. 03/31/17 CREAT 0.83 mg/DL GFR >60 ml/min 08/2016 B12 224 pg/ml Mild elevated calcium noted she has intermittent mild hypercalcemia since 2014 to 2017 ranges form 10.2 to 10.6 mg/DL, she had normal PTH in the past. She has constipation. She has decrease memory . 11/15/2019 AP SPINE L1-L4: Current: BMD 1.135 g/cm2, Z-score 1.4, T-score -0.4, normal, 4.9% decrease from previous, 1.6% increase from baseline (<5% change is not significant). Prior: BMD 1.193 g/cm2. Baseline: BMD 1.117 g/cm2. LEFT FEMUR, NECK: Current: BMD 0.800 g/cm2, Z-score -0.1, T-score -1.7, osteopenia. Prior: BMD 0.804 g/cm2. Baseline: BMD 0.811 g/cm2. LEFT FEMUR, TOTAL: Current: BMD 0.961 g/cm2, Z-score 0.9, T-score -0.4, normal, 1.4% decrease from previous, 0.4% increase from baseline. Prior: BMD 0.975 g/cm2. Baseline: BMD 0.957 g/cm2. RIGHT FOREARM RADIUS 33%: Current: BMD 0.705 g/cm2, Z-score -0.6, T-score -1.9, osteopenia, 11.0% increase from baseline (<5% change is not significant). Prior (initial/baseline for forearm): BMD 0.635 g/cm2. 10/30/2019 US thyroid Right Thyroid Lobe: 5.0 x 1.6 x 1.7 cm, volume 7.1 mL. Previously 5.5 x 1.7 x 1.8 cm, volume 8.5 mL Parenchyma: The gland echotexture is heterogeneous. Thyroid vascularity is normal. Left Thyroid Lobe: 5.0 x 1.4 x 1.9 cm, volume 6.9 mL. Previously 5.3 x 1.4 x 2.1 cm, volume 8.5 mL. Parenchyma: The gland echotexture is heterogeneous. Thyroid vascularity is normal. Isthmus: 0.2 cm in maximum AP dimension. Previously 0.2 cm. RIGHT THYROID LOBE: There are 3 nodules seen. 1. Location: Middle. Size: 0.6 x 0.4 x 0.5 cm. Previous: 0.6 x 0.4 x 0.5 cm. Nodule characteristics: Isoechoic with poorly defined margins. 2. Location: Middle. Size: 0.3 x 0.2 x 0.3 cm. Previous: 0.4 x 0.2 x 0.4 cm. Nodule characteristics: Hypoechoic with partially poorly defined margins. 3. Location: Inferior. Size: 0.9 x 0.7 x 1.0 cm. Previous: 1.4 x 0.8 x 1.2 cm. Nodule characteristics: Heterogeneous and predominately cystic. ISTHMUS: No nodules. LEFT THYROID LOBE: There are 4 nodules seen. 1. Location: Superior. Size: 0.5 x 0.3 x 0.5 cm. Previous: 0.6 x 0.2 x 0.4 cm. Nodule characteristics: Cystic. 2. Location: Middle. Size: 0.5 x 0.2 x 0.5 cm. Previous: 0.6 x 0.3 x 0.4 cm. Nodule characteristics: Well-circumscribed and hypoechoic. 3. Location: Middle. Size: 0.6 x 0.3 x 0.4 cm. Previous: 0.8 x 0.3 x 0.4 cm. Nodule characteristics: Well circumscribed hypoechoic. 4. Location: Middle. Size: 0.5 x 0.2 x 0.4 cm. Previous: 0.4 x 0.2 x 0.5 cm. Nodule characteristics: Well-circumscribed and hypoechoic. NODES: No lymphadenopathy is seen in the tissue surrounding the thyroid gland. Recent thyroid ultrasound shows no change in the size of the nodules Laboratory Tests 10/25/19 01/21/20 01/21/20 08:30 08:30 08:30 Hgb Hct Sodium Potassium Creatinine Estimated GFR Calcium Phosphorus Magnesium Alkaline Phosphatase Albumin N-Telopeptide X-linked 22 Vitamin B12 Vit D 1,25-Dihyd Total 23 25-OH Vitamin D Total Free T4 0.94 TSH PTH Intact Calcium (PTH Intact) Ur 24 Hour Volume Urine Creatinine 86 Ur Creatinine mg/dL Ur Creatinine 24 Hour Ur Calcium 24 Hr Calcium/Creat 24 Hr 11/19/20 11/19/20 01/11/21 Unknown Unknown 08:10 Hgb Hct Sodium Potassium Creatinine Estimated GFR Calcium Phosphorus Magnesium Alkaline Phosphatase Albumin N-Telopeptide X-linked Vitamin B12 Vit D 1,25-Dihyd Total 25-OH Vitamin D Total Free T4 TSH PTH Intact 9 L Calcium (PTH Intact) 9.9 Ur 24 Hour Volume 1425 Urine Creatinine Ur Creatinine mg/dL 54.43 Ur Creatinine 24 Hour 0.83 Ur Calcium 24 Hr 265 H Calcium/Creat 24 Hr 321 H 07/21/20 07/21/20 07/21/20 07:40 07:40 07:40 Hgb 10.8 L Hct 34.3 L Sodium 143 Potassium 4.2 Creatinine 0.93 Estimated GFR > 60 Calcium 9.6 Phosphorus 4.6 H Magnesium 1.9 Alkaline Phosphatase 55 Albumin 4.5 N-Telopeptide X-linked Vitamin B12 187 L Vit D 1,25-Dihyd Total 25-OH Vitamin D Total Free T4 TSH 2.94 PTH Intact Calcium (PTH Intact) Ur 24 Hour Volume Urine Creatinine Ur Creatinine mg/dL Ur Creatinine 24 Hour Ur Calcium 24 Hr Calcium/Creat 24 Hr 07/21/20 07:40 Hgb Hct Sodium Potassium Creatinine Estimated GFR Calcium Phosphorus Magnesium Alkaline Phosphatase Albumin N-Telopeptide X-linked Vitamin B12 Vit D 1,25-Dihyd Total 25-OH Vitamin D Total 40.1 Free T4 TSH PTH Intact Calcium (PTH Intact) Ur 24 Hour Volume Urine Creatinine Ur Creatinine mg/dL Ur Creatinine 24 Hour Ur Calcium 24 Hr Calcium/Creat 24 Hr Laboratory Tests 10/25/19 01/21/20 01/21/20 08:30 08:30 08:30 Sodium Potassium BUN Creatinine Estimated GFR Fasting Glucose Calcium Phosphorus Magnesium Alkaline Phosphatase Albumin N-Telopeptide X-linked 22 Vit D 1,25-Dihyd Total 23 25-OH Vitamin D Total 1,25 Dihydroxy Vit D 1,25 Dihydroxy Vit D2 1,25 Dihydroxy Vit D3 TSH 2.96 Free T4 0.94 PTH Intact Calcium (PTH Intact) Ur 24 Hour Volume Urine Creatinine 86 Ur Creatinine mg/dL Ur Creatinine 24 Hour Ur Calcium 24 Hr Calcium/Creat 24 Hr 02/07/20 02/07/20 03/31/20 Unknown Unknown 08:10 Sodium 144 Potassium 4.2 BUN 25 H Creatinine 0.82 Estimated GFR > 60 Fasting Glucose 89 Calcium 9.5 Phosphorus 4.2 Magnesium 1.8 Alkaline Phosphatase 59 Albumin 4.6 N-Telopeptide X-linked Vit D 1,25-Dihyd Total 25-OH Vitamin D Total 41.7 1,25 Dihydroxy Vit D 1,25 Dihydroxy Vit D2 1,25 Dihydroxy Vit D3 TSH Free T4 PTH Intact Calcium (PTH Intact) Ur 24 Hour Volume 1425 Urine Creatinine Ur Creatinine mg/dL 54.43 Ur Creatinine 24 Hour 0.83 Ur Calcium 24 Hr 265 H Calcium/Creat 24 Hr 321 H 03/31/20 03/31/20 08:10 08:10 Sodium Potassium BUN Creatinine Estimated GFR Fasting Glucose Calcium Phosphorus Magnesium Alkaline Phosphatase Albumin N-Telopeptide X-linked Vit D 1,25-Dihyd Total 25-OH Vitamin D Total 1,25 Dihydroxy Vit D 19 1,25 Dihydroxy Vit D2 <8 1,25 Dihydroxy Vit D3 19 TSH Free T4 PTH Intact 9 L Calcium (PTH Intact) 9.9 Ur 24 Hour Volume Urine Creatinine Ur Creatinine mg/dL Ur Creatinine 24 Hour Ur Calcium 24 Hr Calcium/Creat 24 Hr No sx of hypocalcemia PFSH Medical History Mild recurrent major depression Skin lesion Cognitive impairment Encounter for Medicare annual wellness exam Dyslipidemia Essential hypertension Diabetes mellitus B12 deficiency Non-toxic multinodular goiter Osteoporosis Post-surgical hypoparathyroidism History of primary hyperparathyroidism Surgical History Cataract S/P COLIN-BSO History of bladder suspension procedure H/O blepharoplasty Lipoma Status post fine needle aspiration S/P subtotal parathyroidectomy Family History Father CVD (cardiovascular disease) Myocardial infarct Mother Skin cancer Diabetes Renal failure Social History Housing: Apartment Alcohol intake: never Patient Tobacco Use Status: Never used Tobacco e-Cigarette/Vaping Use: Never Used Second Hand Smoke Exposure: No service: No Current occupational status: disabled Cognitive needs: Yes Hearing needs: No Vision needs: No Physical Exam Vital Signs: Last Vital Signs Pulse 96 02/13/24 09:06 BP 102/66 02/13/24 09:06 BMI result Body Mass Index 27.5 Const Other: Healed scar status post parathyroidectomy. Thyroid gland is normal size weighs by 15 g . There are no thyroid nodules palpated Assessment & Plan Assessment & Plan (1) Post-surgical hypoparathyroidism: Code(s): E89.2 - Postprocedural hypoparathyroidism Category: Medical Plan: This is a 66-year-old female with a history of primary hyperparathyroidism status post removal 3-2 parathyroids with post-operative hypoparathyroidism. She is currently be replaced with calcium, vitamin-D, calcitriol 0.25 mcg q.d. as well as hydrochlorothiazide. Her last calcium level was low normal and within range and urinary calciums have been normal in past Plan is to continue the current regimen and recheck 24 hour urine for calcium and creatinine Patient is somewhat symptomatic intermittently and might be a good candidate for recombinant PTH once it is available again (2) Non-toxic multinodular goiter: Code(s): E04.2 - Nontoxic multinodular goiter Category: Medical Plan: Nodules are all subcentimeter in size and has undergone several biopsies in the past with benign cytology. She appears to be clinically euthyroid. Recent thyroid ultrasound shows stability in the size of the nodules Plan is to repeat a thyroid ultrasound in 2 years timein 2025 Orders: Orders Creatinine, 24 Hr Group Today E89.2 - Postprocedural hypoparathyroidism Calcium, 24 Hr Ur Today E89.2 - Postprocedural hypoparathyroidism Coding Level of Care Code Est Pt Level 3 (73187) Diagnoses Post-surgical hypoparathyroidism E89.2 Non-toxic multinodular goiter E04.2
[2024-02-13 09:06] VITALS: BP 102/66; PULSE 96; BMI 27.5
== END 2024-02-13 09:19 | disposition home or self-care (01) ==
PROVIDERS: PCP Internal Medicine; Visit Provider Internal Medicine Endocrinology, Diabetes & Metabolism
DX: E89.2 Postprocedural hypoparathyroidism (principal); E04.2 Nontoxic multinodular goiter
CPT/HCPCS: 99213

== ENCOUNTER → 2024-02-13 08:56 | Outpatient (BNVA) | payer MEDICARE, MEDICAID, SELFPAY | PROVIDERS: PCP Internal Medicine; Visit Provider Internal Medicine Endocrinology, Diabetes & Metabolism | DX: E04.2 Nontoxic multinodular goiter (principal); E89.2 Postprocedural hypoparathyroidism | CPT/HCPCS: 99212 ==

== ENCOUNTER 2024-03-02 10:42 | Outpatient (REF) | payer MEDICARE, MEDICAID, SELFPAY | END 2024-03-02 10:43 | disposition home or self-care (01) | LOC: HO.MAMMO 10:42 | PROVIDERS: PCP Internal Medicine; Visit Provider Internal Medicine | DX: Z12.31 Encounter for screening mammogram for malignant neoplasm of breast (principal) | CPT/HCPCS: 77063; 77067 ==

== ENCOUNTER → 2024-03-02 10:45 | Outpatient (BNV) | payer MEDICARE, MEDICAID, SELFPAY | PROVIDERS: PCP Internal Medicine; Visit Provider Internal Medicine | DX: Z12.31 Encounter for screening mammogram for malignant neoplasm of breast (principal) | CPT/HCPCS: 77063; 77067 ==

== ENCOUNTER 2024-04-04 09:08 | Outpatient (REF) | payer MEDICARE, MEDICAID, SELFPAY ==
[2024-04-04 11:05] LABS: Alanine Aminotransferase 16 U/L (0-31); Albumin Level 4.4 g/dL (3.5-5.0); Alkaline Phosphatase 66 U/L (39-117); Anion Gap 9 (12-20); Aspartate Amino Transferase 25 U/L (5-31); Bilirubin Total 0.3 mg/dL (0.0-1.0); Blood Urea Nitrogen 36 mg/dL (9-16); Calcium 9.2 mg/dL (8.4-10.2); Carbon Dioxide 25 mmol/L (22-29); Chloride 113 mmol/L (96-108); Cholesterol 135 mg/dL (<200); Estimated Glomerular Filt Rate 44; Glucose Fasting 105 mg/dL (60-99); HDL Cholesterol 57 mg/dL (>40); LDL Cholesterol Calculated 62 mg/dL (<100); Potassium 4.1 mmol/L (3.3-5.1); Sodium 143 mmol/L (135-145); Total Protein 7.2 g/dL (6.5-8.0); Triglycerides 83 mg/dL (<150)
[2024-04-04 11:19] LABS: Microalbum/Creatinine Ratio Ur 10.2 ug/mg cr (<30)
[2024-04-04 11:29] LABS: Folate 13.7 ng/mL (> or = 4.0); Vitamin B12 472 pg/mL (200-900)
== END 2024-04-04 09:09 | disposition home or self-care (01) ==
LOC: HO.10HDL 09:08
PROVIDERS: Visit Provider Internal Medicine
DX: E78.5 Hyperlipidemia, unspecified (principal); E55.9 Vitamin D deficiency, unspecified; E11.9 Type 2 diabetes mellitus without complications; E53.8 Deficiency of other specified B group vitamins
CPT/HCPCS: 36415; 80053; 80061; 82043; 82306; 82570; 82607; 82746

== ENCOUNTER 2024-04-10 07:56 | Outpatient (AMB) | payer MEDICARE, MEDICAID, SELFPAY ==
--- NOTE | 2024-04-10 08:03 | MHC.PC.OV ---
Vital Signs 04/10/24 08:07 Height 5 ft 1.18 in Weight 147 lb BMI 27.6 BP 114/78 Blood Pressure Location Lt brachial Position Sitting Intake Visit Reasons: dm Intake Note: Patient here for a follow up DM Hogshead Opener Required: Yes Hogshead Opener Language: Employment Clerk Name: Cheli Beebe MD Information Interpreted: non-clinical & clinical Accompanied by: daughter in law Allergies Iodinated Contrast Media [IV CONTRAST] Allergy (Severe, Verified 04/10/24 08:22) ANAPHYLAXIS peanut Allergy (Severe, Verified 04/10/24 08:22) CAN'T BREATHE iodine Allergy (Intermediate, Verified 04/10/24 08:22) throat swelling lisinopril [LISINOPRIL] Allergy (Intermediate, Verified 04/10/24 08:22) COUGH, coughing gadobutrol [From GADAVIST] Allergy (Mild, Verified 04/10/24 08:22) HIVES tramadol [TRAMADOL] Adverse Reaction (Severe, Verified 04/10/24 08:22) VOMITING pseudoephedrine [PSEUDOEPHEDRINE] Adverse Reaction (Intermediate, Verified 04/10/24 08:22) HEART PALPITATIONS Medication List - Last Reconciled 04/10/24 by Cheli Beebe MD acetaminophen ER (Tylenol Arthritis Pain) 650 mg PO Q8H albuterol sulfate 90 mcg/actuation inhalation amitriptyline 25 mg PO DAILY 90 days atorvastatin 80 mg PO DAILY 90 days blood pressure monitor As directed blood sugar diagnostic (FreeStyle Test strips) Use 1 test strip twice a day calcitriol 0.25 mcg PO DAILY calcium citrate-vitamin D3 315 mg-5 mcg (200 unit) (Calcium Citrate + D) 2 tabs PO DAILY 30 days cholecalciferol (vitamin D3) 50 mcg PO DAILY 90 days cyanocobalamin (vitamin B-12) 500 mcg sublingual DAILY 90 days duloxetine 30 mg PO BID 90 days epinephrine 0.3 mL IM ONCE PRN 30 days ezetimibe 10 mg PO DAILY 90 days fenofibrate 54 mg PO DAILY 90 days fluticasone propionate 50 mcg/actuation intranasal hydrochlorothiazide 25 mg PO DAILY 90 days hydrocortisone 2.5% (Proctosol HC) 1 appl SD BID-QID PRN 30 days hydroxyzine pamoate 25 mg PO BEDTIME PRN ipratropium bromide 2 sprays intranasal TID PRN lancets (FreeStyle Lancets) to check blood sugars twice a day linaclotide (Linzess) 72 mcg PO DAILY losartan 25 mg PO DAILY 90 days meclizine 25 mg PO DAILY PRN 90 days memantine 5 mg PO DAILY metformin ER 500 mg PO BID nystatin 1 appl topical DAILY 30 days omalizumab 150 mg subcut Q4W omeprazole 40 mg PO BID 30 days ondansetron HCl 4 mg PO BID PRN 30 days pregabalin 25 mg PO BID 30 days ropinirole 1 mg PO DAILY sucralfate 1 g PO DAILY 90 days Symbicort 160-4.5 mcg/actuation (budesonide-formoterol) 2 puffs inhalation BID 30 days NS topiramate 100 mg PO BID 90 days Tobacco use date assessed: 04/10/24 Fall risk assessment: No Falls in past year Last assessed Fall Risk: 04/10/24 Dental Screening Dental Screen Date: 04/10/24 Did you have a dental visit in the last 12 months?: No Did you have a dental problem in the last 6 months where you did not have access to dental care?: No Was dental information given to patient?: Patient has dentist HPI HPI Comments History of Present Illness Details The patient is a 68-year-old female presenting with vertigo and early dementia. She has a history of vertigo, which has been persistent and associated with tinnitus. She indicates that she experiences significant vertigo, with an earlier prescription of meclizine provided by her neurologist, which has not recently been refilled. Additionally, the patient reports cognitive difficulties, for which she has been followed by neurology. The frequency of these neurological consultations varies between once or twice a month. She has been managing elevated cholesterol levels and is on atorvastatin 80 mg. She has a history of parathyroid disease for which she takes calcitriol 0.25 mcg, followed by endocrinology. The patient also suffers from migraines but indicates the absence of migraine attacks in the current visit period. Neuropathy symptoms were noted, and she is currently managing them with Lyrica, which she feels is effective. Overall, the patient describes a fluctuating health status impacted by these chronic conditions, aggravated occasionally by environmental factors such as heat. Diabetes mellitus type 2 has been stable with medications with an A1c of 5.9% today which is within goal. Also LDL within goal. Blood pressure stable with medications. She has mild major depression with anxiety follow by Psychiatry. [facility] Medical History Mild recurrent major depression Skin lesion Cognitive impairment Encounter for Medicare annual wellness exam Dyslipidemia Essential hypertension Diabetes mellitus B12 deficiency Non-toxic multinodular goiter Osteoporosis Post-surgical hypoparathyroidism History of primary hyperparathyroidism Surgical History Cataract S/P COLIN-BSO History of bladder suspension procedure H/O blepharoplasty Lipoma Status post fine needle aspiration S/P subtotal parathyroidectomy Family History Father CVD (cardiovascular disease) Myocardial infarct Mother Skin cancer Diabetes Renal failure Social History Housing: Apartment Alcohol intake: never Patient Tobacco Use Status: Never used Tobacco e-Cigarette/Vaping Use: Never Used Second Hand Smoke Exposure: No service: No Current occupational status: disabled Cognitive needs: Yes Hearing needs: No Vision needs: Yes Questionnaire PHQ-9 Over the last 2 weeks, how often have you been bothered by any of the following problems? 1. Little interest or pleasure in doing things: several days 2. Feeling down, depressed, or hopeless: several days 3. Trouble falling or staying asleep, or sleeping too much: several days 4. Feeling tired or having little energy: nearly every day 5. Poor appetite or overeating: not at all 6. Feeling bad about yourself - or that you are a failure or have let yourself or your family down: not at all 7. Trouble concentrating on things, such as reading the newspaper or watching television: several days 8. Moving or speaking so slowly that other people could have noticed. Or the opposite - being so fidgety or restless that you have been moving around a lot more than usual: not at all 9. Thoughts that you would be better off or of hurting yourself in some way: not at all Total score: 7 Depression Screening Interpretation: Positive Depression Screening Follow-up: Existing condition, In treatment, Community Mental Health Worker F/U and Follow-up Visit Requested Depression Screening Done: Yes 75223 - PHQ-9 Billing: Yes Source: Developed by Drs. Mandeep Bernard, Renee Pitts, Dariusz King and colleagues, with an educational mohit from [employer]. Thrive Questionnaire Date Thrive assessed: 04/10/24 I am a: Patient What is your living situation today?: I have a steady place to live Within the past 12 months, did the food you bought not last and you didn't have the money to get more?: Never true Within the past 12 months, did you worry whether your food would run out before you got money to buy more?: Never true Do you have trouble paying for medicines?: No Do you have trouble getting transportation to medical appointments?: No Do you have trouble paying your heating and electricity bill?: No Do you have trouble taking care of your child, family member or friend?: No Do you have trouble with day-to-day activities such as bathing, preparing meals, shopping, managing finances, etc.?: Yes Are you currently unemployed and looking for a job?: No Are you interested in more education?: No Please select the resources that you would like help with: None THRIVE Score: 0 AUDIT C Alcohol Use Questionnaire (AUDIT-C) 1. How often do you have a drink containing alcohol?: Never 3. How often do you have six or more drinks on one occasion?: Never Total Score: 0 Score Reviewed/Action Taken: No JUAN DANIEL-7 AMB Questionnaire JUAN DANIEL-7 Date JUAN DANIEL - 7 assessed: 04/10/24 Feeling nervous, anxious, or on edge: 2 = More than half the days Not being able to stop or control worryin = Not at all Worrying too much about different things: 2 = More than half the days Trouble relaxin = Several days Being so restless that it is hard to sit still: 0 = Not at all Becoming easily annoyed or irritable: 0 = Not at all Feeling afraid as if something awful might happen: 0 = Not at all Total JUAN DANIEL-7 score (0-4 normal; 5-9 mild; 10-14 moderate; 15-21 severe): 5 Source: Developed by Drs. Mandeep Bernard, Renee Pitts, Dariusz King and colleagues, with an educational mohit from [employer]. JUAN DANIEL-7 Assessment Billing JUAN DANIEL-7 Assessment Tool: JUAN DANIEL-7 Assessment 37007 Review of Systems Const All systems reviewed & are unremarkable except as noted in HPI and below Card Denies chest pain at rest, Denies chest pain with activity, Denies edema, Denies irregular heart rhythm, Denies claudication, Denies dyspnea, Denies dyspnea on exertion, Denies orthopnea, Denies paroxysmal nocturnal dyspnea and Denies slow heart rate Resp Denies cough, Denies dyspnea and Denies dyspnea on exertion GI Denies abdominal pain, Denies change in bowel habits, Denies excessive flatus, Denies nausea and Denies vomiting Physical exam (Primary Care) Vital Signs: Last Vital Signs BP 114/78 04/10/24 08:07 BMI result Body Mass Index 27.6 Tobacco/Smoking Status: Tobacco use Status Tobacco use date assessed 04/10/24 04/10/24 08:15 Patient Tobacco Use Status Never used Tobacco 04/10/24 08:07 Tobacco use type 07/13/23 09:15 e-Cigarette/Vaping Use Never Used 04/10/24 08:07 PHQ-9: PHQ-9 Score PHQ-9: Total score 7 04/10/24 08:28 Depression Screening Interpretation: Positive Depression Screening Follow-up: Existing condition, In treatment, Community Mental Health Worker F/U and Follow-up Visit Requested Thrive Assessment: Date of Thrive Assessment Date Thrive assessed 04/10/24 04/10/24 08:07 Const Limitations: ambulation with cane Resp Effort & Inspection: normal respiratory effort Auscultation: clear to auscultation bilaterally Cardio Jugular venous distension: no JVD Rate: regular rate Rhythm: regular rhythm Heart sounds: S1 normal heart sound present and S2 normal heart sound present Extrem General: Yes full ROM Results AMB Hemoglobin A1c AMB Hemoglobin A1c 5.9 % Last Edit by DAVID Morales on 04/10/24 08:19 Results Reviewed Results Reviewed: Laboratory Last Values Hgb A1c (Clinic) 5.9 % (4.0-6.0) 04/10/24 08:16 Coding Level of Care Code Est Pt Level 4 (44381) Complex EM visit Add On G2211 Diagnoses 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 G30.0; F02.A3 Dementia type: Alzheimer's Alzheimer's disease onset: early onset Dementia severity: mild Dementia behavioral or psychological symptom: with mood disturbance Mild recurrent major depression F33.0 Type 2 diabetes mellitus without complication, without long-term current use of insulin E11.9 Diabetes mellitus type: type 2 Diabetes mellitus skilled nursing insulin use: without skilled nursing use Diabetes mellitus complication status: without complication Essential hypertension I10 Dyslipidemia E78.5 Post-surgical hypoparathyroidism E89.2 Diabetic neuropathy E11.40 Migraines G43.909 Additional Codes JUAN DANIEL-7 Assessment Billing - JUAN DANIEL-7 Assessment Tool: JUAN DANIEL-7 Assessment 88610 ([id number]) PHQ-9 - 22976 - PHQ-9 Billing: Yes ([id number]) Time Spent (min) 25 Assessment & Plan Assessment & Plan (1) Dementia: Code(s): F03.90 - Unspecified dementia, unspecified severity, without behavioral disturbance, psychotic disturbance, mood disturbance, and anxiety Category: Medical Qualifiers: Dementia type: Alzheimer's Alzheimer's disease onset: early onset Dementia severity: mild Dementia behavioral or psychological symptom: with mood disturbance Qualified Code(s): G30.0 - Alzheimer's disease with early onset; F02.A3 - Dementia in other diseases classified elsewhere, mild, with mood disturbance (2) Mild recurrent major depression: Code(s): F33.0 - Major depressive disorder, recurrent, mild Category: Medical (3) Diabetes mellitus: Code(s): E11.9 - Type 2 diabetes mellitus without complications Category: Medical Qualifiers: Diabetes mellitus type: type 2 Diabetes mellitus termite control servicer insulin use: without termite control servicer use Diabetes mellitus complication status: without complication Qualified Code(s): E11.9 - Type 2 diabetes mellitus without complications (4) Essential hypertension: Code(s): I10 - Essential (primary) hypertension Category: Medical (5) Dyslipidemia: Code(s): E78.5 - Hyperlipidemia, unspecified Category: Medical (6) Post-surgical hypoparathyroidism: Code(s): E89.2 - Postprocedural hypoparathyroidism Category: Medical (7) Diabetic neuropathy: Code(s): E11.40 - Type 2 diabetes mellitus with diabetic neuropathy, unspecified Category: Medical (8) Migraines: Code(s): G43.909 - Migraine, unspecified, not intractable, without status migrainosus Category: Medical Plan - Continue management of cognitive impairment with neurology consultations as per current schedule. - Maintain current atorvastatin therapy for hypercholesterolemia. - Monitor hyperparathyroidism under endocrinology's guidance, continuing calcitriol as prescribed. - Manage vertigo with a potential refill or adjustment of meclizine therapy. - Utilize Lyrica for neuropathic symptoms, monitoring for efficacy and possible side effects. - Advise ongoing monitoring and use of mobility aids as necessary to manage vertigo. Patient was informed and verbally consented to the use of an ambient scribe for clinic note documentation during this visit. I discussed with the patient the management of her cognitive impairment, emphasizing consistent follow-up with her neurologist. The benefits and potential side effects of atorvastatin, calcitriol, and Lyrica were reviewed, ensuring that the patient understands their role in managing her conditions. We discussed the need for possible adjustments in her vertigo management regime, particularly regarding meclizine. The patient was advised to remain careful about environmental factors that might exacerbate her symptoms, such as heat. I reinforced the importance of utilizing her mobility aids effectively to maintain balance and prevent falls. Follow-up visits were encouraged to monitor progress and adjust treatment as needed. Orders: Orders AMB Hemoglobin A1c Today E11.9 - Type 2 diabetes mellitus without complications Microalbumin, Random (w Creat) 4 Months R80.9 - Proteinuria, unspecified Lipid Panel 4 Months E78.5 - Hyperlipidemia, unspecified Vitamin D 25-OH Total 4 Months E55.9 - Vitamin D deficiency, unspecified Vitamin B12 and Folate 4 Months E53.8 - Deficiency of other specified B group vitamins Comprehensive [place]. Panel Fast 4 Months F02.A3 - Dementia in other diseases classified elsewhere, mild, with mood disturbance, G30.0 - Alzheimer's disease with early onset Medications: Changed From memantine 5 mg PO DAILY To memantine 5 mg PO BID Patient Instructions: - Continue current medications as prescribed for cholesterol, hyperparathyroidism, and neuropathy. - Use mobility aids consistently to ensure safety during ambulation. - Monitor symptoms of vertigo and cognitive changes; contact the office if symptoms worsen. - Follow up with neurology and endocrinology according to schedule. - Stay hydrated and avoid overheating to help manage vertigo episodes.
[2024-04-10 08:07] VITALS: BP 114/78; BMI 27.6
== END 2024-04-10 08:35 | disposition home or self-care (01) ==
PROVIDERS: PCP Internal Medicine; Visit Provider Internal Medicine
DX: G30.0 Alzheimer's disease with early onset (principal); F02.A3 Dementia in other diseases classified elsewhere, mild, with mood disturbance; F33.0 Major depressive disorder, recurrent, mild; E11.69 Type 2 diabetes mellitus with other specified complication; E89.2 Postprocedural hypoparathyroidism; E11.40 Type 2 diabetes mellitus with diabetic neuropathy, unspecified; I10 Essential (primary) hypertension; E78.5 Hyperlipidemia, unspecified; G43.909 Migraine, unspecified, not intractable, without status migrainosus

== ENCOUNTER → 2024-04-10 07:56 | Outpatient (BNVA) | payer MEDICARE, MEDICAID, SELFPAY | PROVIDERS: PCP Internal Medicine; Visit Provider Internal Medicine | DX: G30.0 Alzheimer's disease with early onset (principal); F02.A3 Dementia in other diseases classified elsewhere, mild, with mood disturbance; F33.0 Major depressive disorder, recurrent, mild; I10 Essential (primary) hypertension; E78.5 Hyperlipidemia, unspecified; E11.40 Type 2 diabetes mellitus with diabetic neuropathy, unspecified; E89.2 Postprocedural hypoparathyroidism; G43.909 Migraine, unspecified, not intractable, without status migrainosus | CPT/HCPCS: 83036; 96127; 99212 ==

== ENCOUNTER 2024-07-04 09:50 | Outpatient (REF) | payer MEDICARE, MEDICAID, SELFPAY ==
[2024-07-04 10:42] LABS: Creatinine, mg/dL 90.07
--- OUTSIDE RECORDS SUMMARY | 2024-07-04 11:08 | XMS_ITS | Encounter Summary ---
Author Organization [employer] [facility] Address [address] [place] [address] Care Team Providers Care Machine Load Clerk Name Role Phone Unavailable Primary Care Provider Unavailabl e Encounter Details Date Type Department Care Team (Latest Contact Info) Description 10/09/[address] [facility] CONVERSIONS Dental, Provider, DDS Social History Tobacco Use Types Packs/Day Years Used Date Smoking Tobacco: Never Assessed Comments Unknown Sex and Gender Information Value Date Recorded Sex Assigned at Female 01/18/2022 10:25 AM EDT Legal Sex Female 10:25 AM EDT Gender Identity Female 01/18/2022 10:25 AM EDT Sexual Orientation Straight 01/18/2022 10 :25 AM EDT documented as of this encounter Plan of Treatment Not on file documented as of this encounter Visit Diagnoses Not on filedocumented in this encounter
--- OUTSIDE RECORDS SUMMARY | 2024-07-04 11:08 | XMS_ITS | Clinical Summary ---
Author Organization [employer] Address [address] [place] [address] Care Team Providers Care Hothouse Worker Name Role Phone Unavailable Primary Care Provider Unavailabl e Social History Tobacco Use Types Packs/Day Years Used Date Smoking Tobacco: Never Assessed Comments Unknown Sex and Gender Information Value Date Recorded Sex Assigned at Female 01/18/2022 10:25 AM EDT Legal Sex Female 10:25 AM EDT Gender Identity Female 01/18/2022 10:25 AM EDT Sexual Orientation Straight 01/18/2022 10 :25 AM EDT Plan of Treatment Health Maintenance Due Date Last Done Comments CT Colonography 1954 Colonoscopy 1954 Colorectal Cancer Screening 1954 Depression Screening 1954 FIT DNA/Cologuard 1954 FIT 1954 FOBT 1954 Sigmoidoscopy 1954 Alcohol/Substance Use Screening 1966 Tobacco Screening 1966 DTaP/Tdap/Td Vaccines (1 - Tdap) 1973 Mammogram 1994 Pneumococcal Vaccine: 50+ Ye ars (1 of 1 - PCV) 2004 Zoster Vaccines (1 of 2) 2004 COVID-19 Vaccine ( - 2023-2 5 season) 2023 Influenza Vaccine (#1) 2023 RSV Patients and Pa tients Aged 60 years or older (1 - 1-dose 75+ series) 2029 HIB Vaccines Aged Out No longer eligi ble based on patient's age to complete this topic HPV Vaccines Aged Out No longer eligi ble based on patient's age to complete this topic Hepatitis A Vaccines Aged Out No long er eligible based on patient's age to complete this topic Hepatitis B Vaccines Aged Out No long er eligible based on patient's age to complete this topic IPV Vaccines Aged Out No longer eligi ble based on patient's age to complete this topic Meningococcal Vaccine Aged Out No anjel vicki eligible based on patient's age to complete this topic RSV under 20 months Aged Out No longe r eligible based on patient's age to complete this topic Rotavirus Vaccines Aged Out No longer eligible based on patient's age to complete this topic
[2024-07-04 14:53] LABS: Total Volume 24 Hour Urine 1100 mL
[2024-07-07 19:38] LABS: Calcium, 24 Hr Urine 80 mg/24 h; Calcium/Creatinine Ratio 79 mg/g creat (30-275); Creatinine 24Hr Urine 1.01 g/24 h (0.50-2.15)
== END 2024-07-04 09:51 | disposition home or self-care (01) ==
LOC: HO.LNP 09:50
PROVIDERS: Visit Provider Internal Medicine Endocrinology, Diabetes & Metabolism
DX: E89.2 Postprocedural hypoparathyroidism (principal)
CPT/HCPCS: 82340; 82570

== ENCOUNTER 2024-07-12 08:56 | Outpatient (AMB) | payer MEDICARE, MEDICAID, SELFPAY ==
--- NOTE | 2024-07-12 09:10 | A.OFFVIS_ITS ---
Vital Signs 07/12/24 09:11 Height 5 ft 1.18 in Weight 148 lb 2.41 oz BMI 27.8 BP 100/68 Blood Pressure Location Rt brachial Position Sitting Pulse 71 Pulse Source Pulse Oximeter Pulse Oximetry (%) 97 Oxygen Delivery Method Room Air Intake Visit Reasons: f/u hypoparathryoidism Intake Note: Patient present today for Hypoparathyroidism follow up visit. Grain Oilseed Or Pasture Grower Required: Yes Grain Oilseed Or Pasture Grower Language: Pig Breeder Services: Grain Oilseed Or Pasture Grower Present Grain Oilseed Or Pasture Grower Name: Hamzah Information Interpreted: non-clinical & clinical Accompanied by: Daughter Allergies Iodinated Contrast Media [IV CONTRAST] Allergy (Severe, Verified 07/12/24 09:12) ANAPHYLAXIS peanut Allergy (Severe, Verified 07/12/24 09:12) CAN'T BREATHE iodine Allergy (Intermediate, Verified 07/12/24 09:12) throat swelling lisinopril [LISINOPRIL] Allergy (Intermediate, Verified 07/12/24 09:12) COUGH, coughing gadobutrol [From GADAVIST] Allergy (Mild, Verified 07/12/24 09:12) HIVES tramadol [TRAMADOL] Adverse Reaction (Severe, Verified 07/12/24 09:12) VOMITING pseudoephedrine [PSEUDOEPHEDRINE] Adverse Reaction (Intermediate, Verified 07/12/24 09:12) HEART PALPITATIONS Medication List - Last Reconciled 07/12/24 by Mandeep Parker MD acetaminophen ER (Tylenol Arthritis Pain) 650 mg PO Q8H albuterol sulfate 90 mcg/actuation inhalation amitriptyline 25 mg PO DAILY 90 days atorvastatin 80 mg PO DAILY 90 days blood pressure monitor As directed blood sugar diagnostic (FreeStyle Test strips) Use 1 test strip twice a day calcitriol 0.25 mcg PO DAILY calcium citrate-vitamin D3 315 mg-5 mcg (200 unit) (Calcium Citrate + D) 2 tabs PO DAILY 30 days cholecalciferol (vitamin D3) 50 mcg PO DAILY 90 days cyanocobalamin (vitamin B-12) 500 mcg sublingual DAILY 90 days duloxetine 30 mg PO BID 90 days epinephrine 0.3 mL IM ONCE PRN 30 days ezetimibe 10 mg PO DAILY 90 days fenofibrate 54 mg PO DAILY 90 days fluticasone propionate 50 mcg/actuation intranasal hydrochlorothiazide 25 mg PO DAILY 90 days hydrocortisone 2.5% (Proctosol HC) 1 appl ID BID-QID PRN 30 days hydroxyzine pamoate 25 mg PO BEDTIME PRN ipratropium bromide 2 sprays intranasal TID PRN lancets (FreeStyle Lancets) to check blood sugars twice a day linaclotide (Linzess) 72 mcg PO DAILY losartan 25 mg PO DAILY 90 days meclizine 25 mg PO DAILY PRN 90 days memantine 5 mg PO BID metformin ER 500 mg PO BID nystatin 1 appl topical DAILY 30 days omalizumab 150 mg subcut Q4W omeprazole 40 mg PO BID 30 days ondansetron HCl 4 mg PO BID PRN 30 days pregabalin 25 mg PO BID 30 days ropinirole 1 mg PO DAILY sucralfate 1 g PO DAILY 90 days Symbicort 160-4.5 mcg/actuation (budesonide-formoterol) 2 puffs inhalation BID 30 days NS topiramate 100 mg PO BID 90 days HPI Comments Details: 68 yo female , today for follow-up visit, 1 for post surgical hypoparathyroidism and NTMNG She is feeling well in general. She denies numbness, tingling. Perioral numbness. She is currently Calcitriol 0.25 mcg, calcium citrate 500 mg + D twice a day, HCTZ 25 mg daily Patient states calcitriol was stopped by primary care provider couple weeks ago. Patient is status post 3 03/23 parathyroidectomy, 1/2 left inferior parathyroid gland left in see to her PTH before surgery was 73 pg/mL PTH dropped to 18 pg/mL after surgery. 05/01/2019. She had fine-needle aspiration of right thyroid nodule on 11/02/2018 , cytology was consistent with benign follicular nodule Bazine category 2. For osteoporosis she is on Fosamax 70 mg weekly she is 100% adherent and she has a good method of administration. She has been on Fosamax for about 2 years. She had FNA of right mid pole nodule size 1.1 x 1.0 x 1.0 cm. on 11/03/17 cytology consistent with AUS, with Afirma negative. She has other PMH of HTN, DM 2 dyslipidmeia, osteoporosis. 03/31/17 CREAT 0.83 mg/DL GFR >60 ml/min 08/2016 B12 224 pg/ml Mild elevated calcium noted she has intermittent mild hypercalcemia since 2014 to 2017 ranges form 10.2 to 10.6 mg/DL, she had normal PTH in the past. She has constipation. She has decrease memory . 11/15/2019 AP SPINE L1-L4: Current: BMD 1.135 g/cm2, Z-score 1.4, T-score -0.4, normal, 4.9% decrease from previous, 1.6% increase from baseline (<5% change is not significant). Prior: BMD 1.193 g/cm2. Baseline: BMD 1.117 g/cm2. LEFT FEMUR, NECK: Current: BMD 0.800 g/cm2, Z-score -0.1, T-score -1.7, osteopenia. Prior: BMD 0.804 g/cm2. Baseline: BMD 0.811 g/cm2. LEFT FEMUR, TOTAL: Current: BMD 0.961 g/cm2, Z-score 0.9, T-score -0.4, normal, 1.4% decrease from previous, 0.4% increase from baseline. Prior: BMD 0.975 g/cm2. Baseline: BMD 0.957 g/cm2. RIGHT FOREARM RADIUS 33%: Current: BMD 0.705 g/cm2, Z-score -0.6, T-score -1.9, osteopenia, 11.0% increase from baseline (<5% change is not significant). Prior (initial/baseline for forearm): BMD 0.635 g/cm2. 10/30/2019 US thyroid Right Thyroid Lobe: 5.0 x 1.6 x 1.7 cm, volume 7.1 mL. Previously 5.5 x 1.7 x 1.8 cm, volume 8.5 mL Parenchyma: The gland echotexture is heterogeneous. Thyroid vascularity is normal. Left Thyroid Lobe: 5.0 x 1.4 x 1.9 cm, volume 6.9 mL. Previously 5.3 x 1.4 x 2.1 cm, volume 8.5 mL. Parenchyma: The gland echotexture is heterogeneous. Thyroid vascularity is normal. Isthmus: 0.2 cm in maximum AP dimension. Previously 0.2 cm. RIGHT THYROID LOBE: There are 3 nodules seen. 1. Location: Middle. Size: 0.6 x 0.4 x 0.5 cm. Previous: 0.6 x 0.4 x 0.5 cm. Nodule characteristics: Isoechoic with poorly defined margins. 2. Location: Middle. Size: 0.3 x 0.2 x 0.3 cm. Previous: 0.4 x 0.2 x 0.4 cm. Nodule characteristics: Hypoechoic with partially poorly defined margins. 3. Location: Inferior. Size: 0.9 x 0.7 x 1.0 cm. Previous: 1.4 x 0.8 x 1.2 cm. Nodule characteristics: Heterogeneous and predominately cystic. ISTHMUS: No nodules. LEFT THYROID LOBE: There are 4 nodules seen. 1. Location: Superior. Size: 0.5 x 0.3 x 0.5 cm. Previous: 0.6 x 0.2 x 0.4 cm. Nodule characteristics: Cystic. 2. Location: Middle. Size: 0.5 x 0.2 x 0.5 cm. Previous: 0.6 x 0.3 x 0.4 cm. Nodule characteristics: Well-circumscribed and hypoechoic. 3. Location: Middle. Size: 0.6 x 0.3 x 0.4 cm. Previous: 0.8 x 0.3 x 0.4 cm. Nodule characteristics: Well circumscribed hypoechoic. 4. Location: Middle. Size: 0.5 x 0.2 x 0.4 cm. Previous: 0.4 x 0.2 x 0.5 cm. Nodule characteristics: Well-circumscribed and hypoechoic. NODES: No lymphadenopathy is seen in the tissue surrounding the thyroid gland. Recent thyroid ultrasound shows no change in the size of the nodules Laboratory Tests 10/25/19 01/21/20 01/21/20 08:30 08:30 08:30 Hgb Hct Sodium Potassium Creatinine Estimated GFR Calcium Phosphorus Magnesium Alkaline Phosphatase Albumin N-Telopeptide X-linked 22 Vitamin B12 Vit D 1,25-Dihyd Total 23 25-OH Vitamin D Total Free T4 0.94 TSH PTH Intact Calcium (PTH Intact) Ur 24 Hour Volume Urine Creatinine 86 Ur Creatinine mg/dL Ur Creatinine 24 Hour Ur Calcium 24 Hr Calcium/Creat 24 Hr 02/07/20 02/07/20 03/31/20 Unknown Unknown 08:10 Hgb Hct Sodium Potassium Creatinine Estimated GFR Calcium Phosphorus Magnesium Alkaline Phosphatase Albumin N-Telopeptide X-linked Vitamin B12 Vit D 1,25-Dihyd Total 25-OH Vitamin D Total Free T4 TSH PTH Intact 9 L Calcium (PTH Intact) 9.9 Ur 24 Hour Volume 1425 Urine Creatinine Ur Creatinine mg/dL 54.43 Ur Creatinine 24 Hour 0.83 Ur Calcium 24 Hr 265 H Calcium/Creat 24 Hr 321 H 07/21/20 07/21/20 07/21/20 07:40 07:40 07:40 Hgb 10.8 L Hct 34.3 L Sodium 143 Potassium 4.2 Creatinine 0.93 Estimated GFR > 60 Calcium 9.6 Phosphorus 4.6 H Magnesium 1.9 Alkaline Phosphatase 55 Albumin 4.5 N-Telopeptide X-linked Vitamin B12 187 L Vit D 1,25-Dihyd Total 25-OH Vitamin D Total Free T4 TSH 2.94 PTH Intact Calcium (PTH Intact) Ur 24 Hour Volume Urine Creatinine Ur Creatinine mg/dL Ur Creatinine 24 Hour Ur Calcium 24 Hr Calcium/Creat 24 Hr 07/21/20 07:40 Hgb Hct Sodium Potassium Creatinine Estimated GFR Calcium Phosphorus Magnesium Alkaline Phosphatase Albumin N-Telopeptide X-linked Vitamin B12 Vit D 1,25-Dihyd Total 25-OH Vitamin D Total 40.1 Free T4 TSH PTH Intact Calcium (PTH Intact) Ur 24 Hour Volume Urine Creatinine Ur Creatinine mg/dL Ur Creatinine 24 Hour Ur Calcium 24 Hr Calcium/Creat 24 Hr Laboratory Tests 10/25/19 01/21/20 01/21/20 08:30 08:30 08:30 Sodium Potassium BUN Creatinine Estimated GFR Fasting Glucose Calcium Phosphorus Magnesium Alkaline Phosphatase Albumin N-Telopeptide X-linked 22 Vit D 1,25-Dihyd Total 23 25-OH Vitamin D Total 1,25 Dihydroxy Vit D 1,25 Dihydroxy Vit D2 1,25 Dihydroxy Vit D3 TSH 2.96 Free T4 0.94 PTH Intact Calcium (PTH Intact) Ur 24 Hour Volume Urine Creatinine 86 Ur Creatinine mg/dL Ur Creatinine 24 Hour Ur Calcium 24 Hr Calcium/Creat 24 Hr 02/07/20 02/07/20 03/31/20 Unknown Unknown 08:10 Sodium 144 Potassium 4.2 BUN 25 H Creatinine 0.82 Estimated GFR > 60 Fasting Glucose 89 Calcium 9.5 Phosphorus 4.2 Magnesium 1.8 Alkaline Phosphatase 59 Albumin 4.6 N-Telopeptide X-linked Vit D 1,25-Dihyd Total 25-OH Vitamin D Total 41.7 1,25 Dihydroxy Vit D 1,25 Dihydroxy Vit D2 1,25 Dihydroxy Vit D3 TSH Free T4 PTH Intact Calcium (PTH Intact) Ur 24 Hour Volume 1425 Urine Creatinine Ur Creatinine mg/dL 54.43 Ur Creatinine 24 Hour 0.83 Ur Calcium 24 Hr 265 H Calcium/Creat 24 Hr 321 H 03/31/20 03/31/20 08:10 08:10 Sodium Potassium BUN Creatinine Estimated GFR Fasting Glucose Calcium Phosphorus Magnesium Alkaline Phosphatase Albumin N-Telopeptide X-linked Vit D 1,25-Dihyd Total 25-OH Vitamin D Total 1,25 Dihydroxy Vit D 19 1,25 Dihydroxy Vit D2 <8 1,25 Dihydroxy Vit D3 19 TSH Free T4 PTH Intact 9 L Calcium (PTH Intact) 9.9 Ur 24 Hour Volume Urine Creatinine Ur Creatinine mg/dL Ur Creatinine 24 Hour Ur Calcium 24 Hr Calcium/Creat 24 Hr No sx of hypocalcemia . On calcitriol 0.25 mcg per day and calcium citrate/vitamin D3 315 mg/200 IU 2 tabs once a day The patient is a 68-year-old female presenting with hypoparathyroidism management post-surgery. Her condition is being managed with calcium and calcitriol therapy, maintaining stable calcium levels confirmed by a recent laboratory evaluation showing a calcium level of 9.2 mg/dL and phosphorus at 3.3 mg/dL. No current symptoms such as muscle spasms or tingling are reported, which are typically associated with this condition. The patient has been presented with an option for parathyroid hormone replacement therapy, discussed as a possible means to stabilize calcium levels without direct supplementation of calcium and vitamin D. However, due to cost, required daily administration, and lack of urgency, this option is not being pursued at this time. She is also under treatment for multi- nodular goiter and managing her condition with existing therapies. Memory concerns were addressed but not deemed directly correlated to her parathyroid and thyroid conditions. Further monitoring and follow-up have been planned. - Calcium and calcitriol for hypoparathyroidism management - Hydrochlorothiazide for fluid balance as part of hypoparathyroidism - Hormonal therapy for hypothyroidism PFSH Medical History Mild recurrent major depression Skin lesion Cognitive impairment Encounter for Medicare annual wellness exam Dyslipidemia Essential hypertension Diabetes mellitus B12 deficiency Non-toxic multinodular goiter Osteoporosis Post-surgical hypoparathyroidism History of primary hyperparathyroidism Surgical History Cataract S/P COLIN-BSO History of bladder suspension procedure H/O blepharoplasty Lipoma Status post fine needle aspiration S/P subtotal parathyroidectomy Family History Father CVD (cardiovascular disease) Myocardial infarct Mother Skin cancer Diabetes Renal failure Social History Housing: Apartment Alcohol intake: never Patient Tobacco Use Status: Never used Tobacco e-Cigarette/Vaping Use: Never Used Second Hand Smoke Exposure: No service: No Current occupational status: disabled Cognitive needs: Yes Hearing needs: No Vision needs: Yes Physical Exam Vital Signs: Last Vital Signs Pulse 71 07/12/24 09:11 BP 100/68 07/12/24 09:11 Pulse Ox 97 07/12/24 09:11 Oxygen Delivery Method Room Air 07/12/24 09:11 BMI result Body Mass Index 27.8 Const Other: Healed scar status post parathyroidectomy. Thyroid gland is normal size weighs by 15 g . There are no thyroid nodules palpated Assessment & Plan Assessment & Plan (1) Post-surgical hypoparathyroidism: Code(s): E89.2 - Postprocedural hypoparathyroidism Category: Medical Plan: This is a 68-year-old female with a history of primary hyperparathyroidism status post removal 3-2 parathyroids with post-operative hypoparathyroidism. She is currently be replaced with calcium, vitamin-D, calcitriol 0.25 mcg q.d. as well as hydrochlorothiazide. Her last calcium level was low normal as well as phosphorus and within range and urinary calciums have been normal Plan is to continue the current regimen (2) Non-toxic multinodular goiter: Code(s): E04.2 - Nontoxic multinodular goiter Category: Medical Plan: Nodules are all subcentimeter in size and has undergone several biopsies in the past with benign cytology. She appears to be clinically euthyroid. Recent thyroid ultrasound shows stability in the size of the nodules Plan is to repeat a thyroid ultrasound in 2 years timein 2025 Coding Level of Care Code Est Pt Level 3 (46000) Diagnoses Post-surgical hypoparathyroidism E89.2 Non-toxic multinodular goiter E04.2
[2024-07-12 09:11] VITALS: BP 100/68; PULSE 71; O2SAT 97; BMI 27.8
--- OUTSIDE RECORDS SUMMARY | 2024-07-12 09:33 | XMS_ITS | Clinical Summary ---
Author Organization [employer] Address [address] [address] [place] [address] Care Team Providers Care Liquefaction Plant Operator Name Role Phone Unavailable Primary Care Provider [...]
--- OUTSIDE RECORDS SUMMARY | 2024-07-12 09:33 | XMS_ITS | Encounter Summary ---
Author Organization [employer] [facility] Address [address] [place] [address] Care Team Providers Care Grinder Set Up Operator Thread Tool Name Role Phone Unavailable Primary Care Provider Unavailabl e Encounter Details Date Type Department Care Team (Latest Contact Info) Description 10/09/2018 Abstract [facility] CONVERSIONS Dental, Provider, DDS Social History [...]
== END 2024-07-12 09:30 | disposition home or self-care (01) ==
LOC: HO.ENCR 08:57
PROVIDERS: PCP Internal Medicine; Visit Provider Internal Medicine Endocrinology, Diabetes & Metabolism
DX: E89.2 Postprocedural hypoparathyroidism (principal); E04.2 Nontoxic multinodular goiter
CPT/HCPCS: 99213

== ENCOUNTER → 2024-07-12 08:56 | Outpatient (BNVA) | payer MEDICARE, MEDICAID, SELFPAY | PROVIDERS: PCP Internal Medicine; Visit Provider Internal Medicine Endocrinology, Diabetes & Metabolism | DX: E89.2 Postprocedural hypoparathyroidism (principal); E04.2 Nontoxic multinodular goiter | CPT/HCPCS: 99212 ==

== ENCOUNTER 2024-07-23 08:21 | Outpatient (REF) | payer MEDICARE, MEDICAID, SELFPAY ==
--- OUTSIDE RECORDS SUMMARY | 2024-07-23 08:38 | XMS_ITS | Clinical Summary ---
Author Organization [employer] Address [address] [facility] [address] [address] [place] [address] Care Team Providers Care Senior Energy Trader Name Role Phone Unavailable Primary Care Provider [...]
--- OUTSIDE RECORDS SUMMARY | 2024-07-23 08:38 | XMS_ITS | Encounter Summary ---
Author Organization [employer] [facility] Address [address] [place] [address] Care Team Providers Care Casualty Underwriter Name Role Phone Unavailable Primary Care Provider Unavailabl e Encounter Details Date Type Department Care Team (Latest Contact Info) Description 10/09/2018 Abstract [facility] CONVERSIONS Dental, Provider, DDS Social History [...]
[2024-07-23 10:19] LABS: Alanine Aminotransferase 15 U/L (0-31); Albumin Level 4.3 g/dL (3.5-5.0); Anion Gap 12 (12-20); Aspartate Amino Transferase 27 U/L (5-31); Bilirubin Total 0.3 mg/dL (0.0-1.0); Blood Urea Nitrogen 20 mg/dL (9-16); Calcium 9.1 mg/dL (8.4-10.2); Carbon Dioxide 26 mmol/L (22-29); Chloride 110 mmol/L (96-108); Cholesterol 167 mg/dL (<200); Estimated Glomerular Filt Rate 60; Glucose Fasting 106 mg/dL (60-99); HDL Cholesterol 59 mg/dL (>40); LDL Cholesterol Calculated 86 mg/dL (<100); Potassium 4.6 mmol/L (3.3-5.1); Sodium 143 mmol/L (135-145); Total Protein 7.1 g/dL (6.5-8.0); Triglycerides 114 mg/dL (<150)
[2024-07-23 10:36] LABS: Alkaline Phosphatase 68 U/L (39-117)
[2024-07-23 10:40] LABS: Vitamin D 25-OH Total 37.8 ng/mL (>30)
[2024-07-23 10:52] LABS: Folate 14.6 ng/mL (> or = 4.0); Vitamin B12 372 pg/mL (200-900)
[2024-07-23 11:04] LABS: Creatinine Urine 249.74 mg/dL
== END 2024-07-23 08:22 | disposition home or self-care (01) ==
LOC: HO.10HDL 08:21
PROVIDERS: Visit Provider Internal Medicine
DX: E55.9 Vitamin D deficiency, unspecified (principal); E53.8 Deficiency of other specified B group vitamins; E78.5 Hyperlipidemia, unspecified; R80.9 Proteinuria, unspecified; G30.0 Alzheimer's disease with early onset; F02.A3 Dementia in other diseases classified elsewhere, mild, with mood disturbance
CPT/HCPCS: 36415; 80053; 80061; 82043; 82306; 82570; 82607; 82746

== ENCOUNTER 2024-07-25 08:51 | Outpatient (AMB) | payer MEDICARE, MEDICAID, SELFPAY ==
--- NOTE | 2024-07-25 08:59 | AM.OFFVISMDC ---
Intake Vital Signs 07/25/24 09:00 Height 5 ft 1.18 in Weight 146 lb BMI 27.4 BP 120/70 Blood Pressure Location Lt brachial Position Sitting Intake Visit Reasons: SWV G0439 Intake Note: Patient here for a subsequent annual wellness visit Cash Register Repairer Required: Yes Cash Register Repairer Language: Commercial Account Executive Services: Cash Register Repairer Offered & Declined Cash Register Repairer Name: Cheli Beebe MD Information Interpreted: non-clinical & clinical Accompanied by: Daughter in law Allergies Iodinated Contrast Media [IV CONTRAST] Allergy (Severe, Verified 07/25/24 09:30) ANAPHYLAXIS peanut Allergy (Severe, Verified 07/25/24 09:30) CAN'T BREATHE iodine Allergy (Intermediate, Verified 07/25/24 09:30) throat swelling lisinopril [LISINOPRIL] Allergy (Intermediate, Verified 07/25/24 09:30) COUGH, coughing gadobutrol [From GADAVIST] Allergy (Mild, Verified 07/25/24 09:30) HIVES tramadol [TRAMADOL] Adverse Reaction (Severe, Verified 07/25/24 09:30) VOMITING pseudoephedrine [PSEUDOEPHEDRINE] Adverse Reaction (Intermediate, Verified 07/25/24 09:30) HEART PALPITATIONS Medication List - Last Reconciled 07/25/24 by Cheli Beebe MD acetaminophen ER (Tylenol Arthritis Pain) 650 mg PO Q8H albuterol sulfate 90 mcg/actuation inhalation amitriptyline 25 mg PO DAILY 90 days atorvastatin 80 mg PO DAILY 90 days blood pressure monitor As directed blood sugar diagnostic (FreeStyle Test strips) Use 1 test strip twice a day calcitriol 0.25 mcg PO DAILY calcium citrate-vitamin D3 315 mg-5 mcg (200 unit) (Calcium Citrate + D) 2 tabs PO DAILY 30 days cholecalciferol (vitamin D3) 50 mcg PO DAILY 90 days cyanocobalamin (vitamin B-12) 500 mcg sublingual DAILY 90 days duloxetine 30 mg PO BID 90 days epinephrine 0.3 mL IM ONCE PRN 30 days ezetimibe 10 mg PO DAILY 90 days fenofibrate 54 mg PO DAILY 90 days fluticasone propionate 50 mcg/actuation intranasal hydrochlorothiazide 25 mg PO DAILY 90 days hydrocortisone 2.5% (Proctosol HC) 1 appl KS BID-QID PRN 30 days hydroxyzine pamoate 25 mg PO BEDTIME PRN ipratropium bromide 2 sprays intranasal TID PRN lancets (FreeStyle Lancets) to check blood sugars twice a day linaclotide (Linzess) 72 mcg PO DAILY losartan 25 mg PO DAILY 90 days meclizine 25 mg PO DAILY PRN 90 days memantine 5 mg PO BID metformin ER 500 mg PO BID nystatin 1 appl topical DAILY 30 days omalizumab 150 mg subcut Q4W omeprazole 40 mg PO BID 30 days ondansetron HCl 4 mg PO BID PRN 30 days pregabalin 25 mg PO BID 30 days ropinirole 1 mg PO DAILY sucralfate 1 g PO DAILY 90 days Symbicort 160-4.5 mcg/actuation (budesonide-formoterol) 2 puffs inhalation BID 30 days NS topiramate 100 mg PO BID 90 days HPI HPI Comments History of Present Illness Details The patient is a 68-year-old female presenting for an annual wellness examination. Her medical history includes managed diabetes mellitus with an A1c of 5.6, indicating controlled glucose levels. Hyperlipidemia management is ongoing, given recent changes in lipid profile, particularly an increase in LDL cholesterol. She reports well-controlled hypertension, previously treated thyroid nodules, and post-surgical status of cataracts and hysterectomy. PPP handed to patient. She has dementia and her mini-mental score today is 22 and she does follows with Neurology. She also has mild major depression follow by Psychiatry. Complains of neck pain and will be referred to physical therapy. Ulen of care reviewed and updated. The discussion also covered vaccination needs, particularly revisiting the pneumococcal vaccine and considering the Shingrix vaccine. Her current medications were reviewed in detail, accounting for allergies to certain drugs and substances. The patient's family history of heart disease and diabetes influences her preventative care strategy. - Pneumococcal vaccine re-administration discussed due to previous administration before age 65. - Shingrix vaccine for shingles considered, with potential need to be administered at a pharmacy. - Diabetes management with an HbA1c of 5.6, review of dietary habits and lifestyle factors. - Lipid management: current LDL at 86, previously 62, including discussion on lifestyle changes to enhance control. - Microalbuminuria monitoring, considering mild increase from 22 to 40, without immediate renal implications. - Discussion of RSV vaccine availability and consideration after age 60. - Colonoscopy done this year and was normal. [facility] Medical History (Updated 07/25/24 @ 16:36 by Cheli Beebe MD) Mild recurrent major depression Skin lesion Cognitive impairment Encounter for Medicare annual wellness exam Dyslipidemia Essential hypertension Diabetes mellitus B12 deficiency Non-toxic multinodular goiter Osteoporosis Post-surgical hypoparathyroidism History of primary hyperparathyroidism Surgical History Cataract S/P COLIN-BSO History of bladder suspension procedure H/O blepharoplasty Lipoma Status post fine needle aspiration S/P subtotal parathyroidectomy Family History Father CVD (cardiovascular disease) Myocardial infarct Mother Skin cancer Diabetes Renal failure Social History Housing: Apartment Alcohol intake: never Patient Tobacco Use Status: Never used Tobacco e-Cigarette/Vaping Use: Never Used Second Hand Smoke Exposure: No service: No Current occupational status: disabled Cognitive needs: Yes Hearing needs: No Vision needs: Yes Questionnaire Medicare Wellness Checkup What [age] What gender do you identify with?: female During the past 4 weeks, how much have you been bothered by emotional problems such as feeling anxious, depressed, irritable, sad or downhearted, and blue?: moderately During the past 4 weeks, has your physical & emotional health limited your social activities with family, friends, neighbors, or groups?: moderately During the past 4 weeks, how much bodily pain have you generally had?: moderate pain During the past 4 weeks, was someone available to help you if you needed & wanted help?: yes, as much as I wanted During the past 4 weeks, what was the hardest physical activity you could do for at least 2 minutes?: very light Can you get to places out of walking distance without help? (For eg., can you travel alone on buses, taxis or drive your car?): No Can you go shopping for groceries or clothes without someone's help?: No Can you prepare your own meals?: No Can you do your housework without help?: No Because of any health problems, do you need the help of another person with your personal care needs such as eating, bathing, dressing or getting around the house?: Yes Can you handle your own money without help?: Yes During the past 4 weeks, how would you rate your health in general?: fair During the past 4 weeks how have things been going for you?: good & bad parts about equal Are you having difficulties driving your car?: not applicable, I don't use a car Do you always fasten your seat belt when you are in a car?: yes, usually During past 4 weeks, have you been bothered by the following: never: Sexual problems?, seldom: Falling or dizzy when standing up and Teeth or denture problems?, sometimes: Trouble eating well? and Problems using the telephone? and always: Tiredness or fatigue? Have you fallen 2 or more times in the past year?: Yes Are you afraid of falling?: Yes Are you a smoker?: no During the past 4 weeks, how many drinks of wine, beer, or other alcoholic beverages did you have?: no alcohol at all Do you exercise for about 20 minutes 3 or more times a week?: no, I usually do not exercise this much Have you been given information to help with the following?: yes: Hazards in your house that might hurt you? and yes: Keeping track of your medications? How often do you have trouble taking medicines the way you have been told to take them?: I always take medicine as prescribed How confident are you that you can control & manage most of your health problems?: somewhat confident What is your race?: Other Mini Mental State Exam (MMSE) Orientation Where are we (state) (county) (town or city) (hospital) (floor)?: state, county, town or city, hospital/clinic and floor Registration Name of 3 unrelated objects clearly and slowly, then ask patient to repeat all 3 of them. (1st repeat determines score. Make sure they can repeat all three): object 1, object 2 and object 3 Attention & Calculation (CHOOSE ONE) Spell WORLD backwards (DLROW): 5 letters Recall Ask patient to repeat the 3 items from question #3.: object 1, object 2 and object 3 Language Show patient a wristwatch & ask what it is. Repeat for pencil.: watch and pencil Ask the patient to repeat the phrase 'No ifs, ands, or buts' after you.: correct Ask the patient to 'take a piece of paper with their right hand' 'fold paper in half' 'place paper on floor': take paper in right hand, fold paper in half and place paper on floor Score Score: 22 Activity of Daily Living Bathing - sponge bath, tub bath or shower: receives help in bathing more than one body part (or not bathed) Dressing - getting clothes from closets & drawers, including inner/outer garments & fasteners.: receives help getting clothes or getting dressed, or stays undressed Toileting - going to the 'toilet room' for urine/bowel elimination & cleaning self/arranging clothes: goes to toilet room, cleans self, arranges clothes without help Transfer: moves in & out of bed or chair with help Continence: has occasional 'accidents' Feeding: feeds self without help Total Score: 2 Information obtained from: patient Using telephone: needs assistance Traveling: dependent Shopping: dependent Preparing meals: dependent Housework: dependent Taking medicine: dependent Managing money: dependent PHQ-9 Over the last 2 weeks, how often have you been bothered by any of the following problems? 1. Little interest or pleasure in doing things: nearly every day 2. Feeling down, depressed, or hopeless: several days 3. Trouble falling or staying asleep, or sleeping too much: nearly every day 4. Feeling tired or having little energy: nearly every day 5. Poor appetite or overeating: more than half the days 6. Feeling bad about yourself - or that you are a failure or have let yourself or your family down: not at all 7. Trouble concentrating on things, such as reading the newspaper or watching television: nearly every day 8. Moving or speaking so slowly that other people could have noticed. Or the opposite - being so fidgety or restless that you have been moving around a lot more than usual: several days 9. Thoughts that you would be better off or of hurting yourself in some way: not at all Total score: 16 Depression Screening Interpretation: Positive (no suicidal thoughts) Depression Screening Follow-up: Existing condition, In treatment, Community Mental Health Worker F/U and Follow-up Visit Requested Depression Screening Done: Yes 48246 - PHQ-9 Billing: Yes Source: Developed by Drs. Mandeep Bernard, Dariusz Piedra and colleagues, with an educational mohit from [email or web address]. Fall Risk Assessment Fall Risk Assessment Fall risk assessment: No Falls in past year AUDIT C Alcohol Use Questionnaire (AUDIT-C) 1. How often do you have a drink containing alcohol?: Never Total Score: 0 Score Reviewed/Action Taken: No JUAN DANIEL-7 AMB Questionnaire JUAN DANIEL-7 Date JUAN DANIEL - 7 assessed: 04/10/24 Feeling nervous, anxious, or on edge: 2 = More than half the days Not being able to stop or control worryin = Not at all Worrying too much about different things: 2 = More than half the days Trouble relaxin = Several days Being so restless that it is hard to sit still: 0 = Not at all Becoming easily annoyed or irritable: 0 = Not at all Feeling afraid as if something awful might happen: 0 = Not at all Total JUAN DANIEL-7 score (0-4 normal; 5-9 mild; 10-14 moderate; 15-21 severe): 5 Source: Developed by Drs. Mandeep Bernard, Dariusz Piedra and colleagues, with an educational mohit from [email or web address]. JUAN DANIEL-7 Assessment Billing JUAN DANIEL-7 Assessment Tool: JUAN DANIEL-7 Assessment 16011 Thrive Questionnaire Date Thrive assessed: 04/10/24 Review of Systems Const All systems reviewed & are unremarkable except as noted in HPI and below Card Denies chest pain at rest, Denies chest pain with activity, Denies edema, Denies irregular heart rhythm, Denies claudication, Denies dyspnea, Denies dyspnea on exertion, Denies orthopnea, Denies paroxysmal nocturnal dyspnea and Denies slow heart rate Resp Denies cough, Denies dyspnea and Denies dyspnea on exertion Musc Denies atrophy, Denies deformity and Denies limited range of motion Physical Exam Vital Signs: Last Vital Signs BP 120/70 07/25/24 09:00 BMI result Body Mass Index 27.4 Resp Effort & Inspection: normal respiratory effort Auscultation: clear to auscultation bilaterally Cardio Jugular venous distension: no JVD Rate: regular rate Rhythm: regular rhythm Heart sounds: S1 normal heart sound present and S2 normal heart sound present Neuro Romberg Test: Negative Extrem General: Yes full ROM Results AMB Hemoglobin A1c AMB Hemoglobin A1c 5.6 % Last Edit by DAVID Morales on 07/25/24 09:23 Immunizations pneumoc 20-tanisha conj-dip cr(PF) 0.5 mL IM syringe Performing Provider: Cheli Beebe MD [facility] Administered by: DAVID Morales on 07/25/24 10:08 Dose Route Admin Location Dispensed Lot Number Expiration Date NDC Mechanical Design Drafter 0.5 mL IM Left Deltoid 0.5 mL [id number] 05/19/25 [employer] VIS Given Date VIS Provided VIS Publication Date 07/25/24 Single Vaccine 22 Eligibility Eligibility Date Funding Source Not [facility] Eligible 07/25/24 Private Results Reviewed Results Reviewed: Laboratory Last Values Hgb A1c (Clinic) 5.6 % (4.0-6.0) 07/25/24 09:02 Assessment & Plan Assessment & Plan (1) Encounter for Medicare annual wellness exam: Code(s): Z00.00 - Encounter for general adult medical examination without abnormal findings (2) Neck pain: Code(s): M54.2 - Cervicalgia (3) Dementia: Code(s): F03.90 - Unspecified dementia, unspecified severity, without behavioral disturbance, psychotic disturbance, mood disturbance, and anxiety Qualifiers: Dementia type: Alzheimer's Alzheimer's disease onset: early onset Dementia severity: mild Dementia behavioral or psychological symptom: with mood disturbance Qualified Code(s): G30.0 - Alzheimer's disease with early onset; F02.A3 - Dementia in other diseases classified elsewhere, mild, with mood disturbance (4) Mild recurrent major depression: Code(s): F33.0 - Major depressive disorder, recurrent, mild (5) Diabetes mellitus: Code(s): E11.9 - Type 2 diabetes mellitus without complications Qualifiers: Diabetes mellitus type: type 2 Diabetes mellitus half-way insulin use: without half-way use Diabetes mellitus complication status: without complication Qualified Code(s): E11.9 - Type 2 diabetes mellitus without complications Plan The health plan for Laura focuses on maintaining good control of her diabetes with an HbA1c target achieved and supporting lipid management, especially with her LDL level rising slightly. The vaccination strategies include confirming pneumococcal re-administration and reviewing the possibility of the new Shingrix for shingles, dependent on prior vaccination details. Microalbumin levels will be routinely checked due to slight elevation but are not immediately concerning. The family was reminded of the significance of considering her allergies in medication administrations, notably with potential changes or additions. We will ensure monitoring for neurological concerns and physical limitations, with evaluations appropriately prescribed as required. Patient was informed and verbally consented to the use of an ambient scribe for clinic note documentation during this visit. Following our review, I advised the patient on managing diabetes and hyperlipidemia respective to her lab results, also stressing on lifestyle interventions. We talked about re-administering the pneumococcal vaccine and initiating the Shingrix vaccine depending on her past records. I highlighted that microalbumin levels should continue to be tracked due to their mild increase but are of no immediate concern. Medication safety, given her multiple allergies and polypharmacy, was a paramount consideration in our discussion. Any family history or events of concern were to be monitored with physician oversight. Orders: Orders AMB Hemoglobin A1c Today E11.9 - Type 2 diabetes mellitus without complications Complete Blood Count Auto Diff 4 Months D64.9 - Anemia, unspecified IRON PROFILE 4 Months D64.9 - Anemia, unspecified Vitamin B12 and Folate 4 Months E53.8 - Deficiency of other specified B group vitamins Vitamin D 25-OH Total 4 Months E55.9 - Vitamin D deficiency, unspecified Lipid Panel 4 Months E78.5 - Hyperlipidemia, unspecified Comprehensive [place]. Panel Fast 4 Months F02.A3 - Dementia in other diseases classified elsewhere, mild, with mood disturbance, G30.0 - Alzheimer's disease with early onset Pneumococcal 20 Immunization Today Z23 - Encounter for immunization PT Evaluation and Treatment Today M54.2 - Cervicalgia Microalbumin, Random (w Creat) 4 Months R80.9 - Proteinuria, unspecified Patient Instructions: - Take all medications as prescribed; consult if new medications are introduced. - Follow a cholesterol-friendly diet; decrease consumption of certain snack foods to help manage LDL levels. - Obtain pneumococcal and Shingrix vaccines as discussed with pharmacy. - Be mindful of fluid intake to manage urinary incontinence effectively. - Conduct blood work and follow-ups as advised for diabetes and hyperlipidemia management. - Ask family members to assist with healthcare proxy arrangements. - Reach out for any new, sudden symptoms or side effects. Quality Reporting (2019) Fall Risk Screening ([facility] 139) Fall risk assessment: No Falls in past year Depression/Bipolar (159/160/161/177) PHQ-9: Total score: 16 Coding Level of Care Code Medicare Subsequent (G0439) Est Pt Level 3 (40842) Diagnoses Encounter for Medicare annual wellness exam Z00.00 Neck pain M54.2 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 G30.0; F02.A3 Dementia type: Alzheimer's Alzheimer's disease onset: early onset Dementia severity: mild Dementia behavioral or psychological symptom: with mood disturbance Mild recurrent major depression F33.0 Type 2 diabetes mellitus without complication, without long-term current use of insulin E11.9 Diabetes mellitus type: type 2 Diabetes mellitus half-way insulin use: without joint terminal attack controller use Diabetes mellitus complication status: without complication CPT Codes Advance Care Planning - Advance Care Planning discussion: On file, no changes ([id number]) Additional Codes JUAN DANIEL-7 Assessment Billing - JUAN DANIEL-7 Assessment Tool: JUAN DANIEL-7 Assessment 68711 ([id number]) PHQ-9 - 64182 - PHQ-9 Billing: Yes ([id number]) Time Spent (min) 36 Advance Care Planning Advance Care Planning discussion: On file, no changes Forms completed: Health Care Proxy
[2024-07-25 09:00] VITALS: BP 120/70; BMI 27.4
--- OUTSIDE RECORDS SUMMARY | 2024-07-25 09:17 | XMS_ITS | Encounter Summary ---
Author Organization [facility] Address [address] [place] [address] Care Team Providers Care Bonsai Tender Name Role Phone Unavailable Primary Care Provider Unavailabl e Encounter Details Date Type Department Care Team (Latest Contact Info) Description 10/09/2018 Abstract [facility] CONVERSIONS Dental, Provider, DDS Social History Tobacco [...]
--- OUTSIDE RECORDS SUMMARY | 2024-07-25 09:18 | XMS_ITS | Clinical Summary ---
Author Organization [facility] Address [address] [place] [address] Care Team Providers Care Rubber Block Layer Name Role Phone Unavailable Primary Care Provider [...]
== END 2024-07-25 10:12 | disposition home or self-care (01) ==
LOC: HO.HMCH 08:52
PROVIDERS: PCP Internal Medicine; Visit Provider Internal Medicine
DX: Z00.00 Encounter for general adult medical examination without abnormal findings (principal); G30.0 Alzheimer's disease with early onset; F02.A3 Dementia in other diseases classified elsewhere, mild, with mood disturbance; E11.9 Type 2 diabetes mellitus without complications; M54.2 Cervicalgia; F33.0 Major depressive disorder, recurrent, mild; Z23 Encounter for immunization

== ENCOUNTER → 2024-07-25 08:51 | Outpatient (BNVA) | payer MEDICARE, MEDICAID, SELFPAY | PROVIDERS: PCP Internal Medicine; Visit Provider Internal Medicine | DX: Z00.00 Encounter for general adult medical examination without abnormal findings (principal); Z23 Encounter for immunization; M54.2 Cervicalgia; G30.0 Alzheimer's disease with early onset; F02.A3 Dementia in other diseases classified elsewhere, mild, with mood disturbance; F33.0 Major depressive disorder, recurrent, mild; E11.9 Type 2 diabetes mellitus without complications | CPT/HCPCS: 83036; 90471; 90677; 96127; 99212 ==

== ENCOUNTER 2024-11-15 09:19 | Outpatient (AMB) | payer MEDICARE, MEDICAID, SELFPAY ==
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
--- OUTSIDE RECORDS SUMMARY | 2024-11-15 10:20 | XMS_ITS | Encounter Summary ---
Author Organization [employer] [facility] Address [address] [place] [address] Care Team Providers Care Cake Former Name Role Phone Unavailable Primary Care Provider Unavailabl e Encounter Details Date Type Department Care Team (Latest Contact Info) Description 10/09/2018 Abstract [facility] CONVERSIONS Dental, Provider, DDS Social History Tobacco [...]
--- OUTSIDE RECORDS SUMMARY | 2024-11-15 10:20 | XMS_ITS | Clinical Summary ---
Author Organization [employer] Address [address] [place] [address] Care Team Providers Care Ammunition Storage Superintendent Name Role Phone Unavailable Primary Care Provider [...] 2023-2 5 season) 2023 Influenza Vaccine (#1) 2024 RSV Patients and Pa tients Aged 60 [...] patient's age to complete this topic Meningococcal B Vaccine Aged Out No l onger eligible based on patient's age to complete [...]
--- OUTSIDE RECORDS SUMMARY | 2024-11-15 10:21 | XMS_ITS | Patient Health Record ---
Author Organization [facility] Address [address] [place] [address] Care Team Providers Care Marine Engineering Consultant Name Role Phone Cheli Esqueda Primary Care Provider UnavailBranden Leonard Jr Unavailable Allergies Allergen (clinical drug ingredient) Drug/Non Drug Allergy documented on EMR Reaction Allergy Type Onset Date Status Pseudophed-Chlophedi an ol-GG Unknown Drug Allergy Active Iodine Unknown Drug Allergy Active Reason For Referral No Information Medications Medication SIG (Take, Route, Frequency, Duration) Notes Start Date End Date Status Gabapentin 600 MG 1 tablet Orally Thre e times a day Active Topiramate 50 MG 1 tablet at bedtime Orally Once a day Active Simethicone 125 MG 1 tablet as needed O rally Four times a day Active metFORMIN HCl 500 MG 1 tablet with meals Orally Twice a day Active ZyrTEC Allergy 10 MG 1 tablet Orally Once a day Active Cymbalta 60 MG 1 capsule Orally Once a day Active Pravastatin Sodium 10 MG 1 tablet Orally Once a day Active Mirapex 0.25 MG 1 tablet before bedt america Orally Once a day Active Fluticasone Furoate 27.5 MCG/SPRAY 1 puff in each nostril Nasally Once a day Active hydrOXYzine HCl 50 MG/ML Intramuscular Active Losartan Potassium 25 MG 1 tablet Orally Once a day Active Meclizine HCl 25 MG 1 tablet as needed O rally Once a day Active Fosamax 70 MG 1 tablet Orally Active Prevacid 30 MG 1 capsule before a m eal Orally Twice a day 01/16/2014 Active Zantac 300 MG 1 tablet at bedtime Orally Once a day Active Problems Problem Type SNOMED Code ICD Code Onset Dates Problem Status W/U Status Risk Notes Problem [id number] Gastro-esophagea l reflux disease without esophagitis (K21.9) Active confirmed Plan Of Treatment Future Test Test Name Order Date UPPER GI ENDOSCOPY 01/16/2014 Insurance Providers Payer Name Payer Address Payer Phone Subscriber Number Group Number Insured Name Patient Relationship to Insured Coverage Start Date Coverage End Date [facility] [address] [address] [place], [place] [id number] [phone] [id number] BRENDA MACRUS Self - patient is the insured MEDICAID OF [facility] [address] [place] [address] [phone] [id number] BRENDA MARCUS Self - patient is the insured Medical (General) History Medical History History ICD Code diabetes mellitus asthma hypertension fibromyalgia hyperlipidemia migraines diabetic neuropathy GERD Surgical History Surgery Date(Month/Year) hysterectomy bladder suspension eyes lift
== END 2024-11-15 10:19 | disposition home or self-care (01) ==
LOC: HO.HSM 09:20
PROVIDERS: PCP Internal Medicine; Referring Provider Internal Medicine; Visit Provider Registered Nurse
DX: G30.0 Alzheimer's disease with early onset (principal); F02.A3 Dementia in other diseases classified elsewhere, mild, with mood disturbance; G43.909 Migraine, unspecified, not intractable, without status migrainosus; G47.00 Insomnia, unspecified; R27.0 Ataxia, unspecified; M79.7 Fibromyalgia
CPT/HCPCS: 99214

== ENCOUNTER → 2024-11-15 09:19 | Outpatient (BNVA) | payer MEDICARE, MEDICAID, SELFPAY | PROVIDERS: PCP Internal Medicine; Referring Provider Internal Medicine; Visit Provider Registered Nurse | DX: G30.0 Alzheimer's disease with early onset (principal); F02.A3 Dementia in other diseases classified elsewhere, mild, with mood disturbance; G43.909 Migraine, unspecified, not intractable, without status migrainosus; G47.00 Insomnia, unspecified; R27.0 Ataxia, unspecified; M79.7 Fibromyalgia; J45.50 Severe persistent asthma, uncomplicated; Z91.09 Other allergy status, other than to drugs and biological substances | CPT/HCPCS: 99212 ==

== ENCOUNTER 2024-11-15 10:33 | Outpatient (AMB) | payer MEDICARE, MEDICAID, SELFPAY ==
[2024-11-15 10:36] VITALS: BP 122/74; PULSE 76; O2SAT 99; BMI 28.3
--- NOTE | 2024-11-15 10:36 | MHC.OFFVIS ---
Vital Signs 11/15/24 10:36 Height 5 ft 1 in Weight 150 lb BMI 28.3 BP 122/74 Blood Pressure Location Rt brachial Position Sitting Pulse 76 Pulse Source Pulse Oximeter Pulse Oximetry (%) 99 Oxygen Delivery Method Room Air Intake Visit Reasons: asthma Allergies Iodinated Contrast Media (IV CONTRAST) Allergy (Severe, Verified 11/15/24 10:42) ANAPHYLAXIS peanut Allergy (Severe, Verified 11/15/24 10:42) CAN'T BREATHE iodine Allergy (Intermediate, Verified 11/15/24 10:42) throat swelling lisinopril (LISINOPRIL) Allergy (Intermediate, Verified 11/15/24 10:42) COUGH, coughing gadobutrol (From GADAVIST) Allergy (Mild, Verified 11/15/24 10:42) HIVES tramadol (TRAMADOL) Adverse Reaction (Severe, Verified 11/15/24 10:42) VOMITING pseudoephedrine (PSEUDOEPHEDRINE) Adverse Reaction (Intermediate, Verified 11/15/24 10:42) HEART PALPITATIONS HPI HPI asthma: Details: 69-year-old lady, nonsmoker, followed for underlying severe persistent allergic asthma, GERD, and environmental allergies. After the last office visit patient was restarted on Xolair and continued on her Symbicort and albuterol MDI with excellent control of her symptoms. She denies recent exacerbations. [facility] Medical History Mild recurrent major depression Skin lesion Cognitive impairment Encounter for Medicare annual wellness exam Dyslipidemia Essential hypertension Diabetes mellitus B12 deficiency Non-toxic multinodular goiter Osteoporosis Post-surgical hypoparathyroidism History of primary hyperparathyroidism Surgical History Cataract S/P COLIN-BSO History of bladder suspension procedure H/O blepharoplasty Lipoma Status post fine needle aspiration S/P subtotal parathyroidectomy Family History Father CVD (cardiovascular disease) Myocardial infarct Mother Skin cancer Diabetes Renal failure Social History Housing: Apartment Alcohol intake: never Patient Tobacco Use Status: Never used Tobacco e-Cigarette/Vaping Use: Never Used Second Hand Smoke Exposure: No service: No Current occupational status: disabled Cognitive needs: Yes Hearing needs: No Vision needs: Yes Review of Systems Const Denies daytime sleepiness, Denies excessive sweating, Denies fatigue, Denies fever(s), Denies lethargy, Denies malaise, Denies night sweats, Denies snoring and Denies weight loss Eyes Denies blurry vision and Denies itchy eyes ENT Denies nasal congestion, Denies post nasal drip, Denies sinus pain, Denies sinus pressure and Denies other ( Thrush) Card Denies chest pain, Denies pedal edema, Denies dyspnea, Denies orthopnea and Denies paroxysmal nocturnal dyspnea Resp Denies cough, Denies hemoptysis, Denies excessive phlegm production, Denies dyspnea, Denies snoring and Denies wheezing GI Denies abdominal pain and Denies heartburn Musc Denies myalgias, Denies arthralgias and Denies joint swelling Skin/Breast Denies rash Neuro Denies memory loss and Denies seizure-like activity Psych Denies abnormal sleep pattern, Denies anxiety and Denies memory loss Endo Denies excessive sweating, Denies fatigue and Denies heat intolerance Lakhwinder/Lymph Denies easy bruising Aller/Immun Denies itchy eyes, Denies seasonal rhinorrhea and Denies wheezing Physical Exam Vital Signs: Last Vital Signs Pulse 76 11/15/24 10:36 BP 122/74 11/15/24 10:36 Pulse Ox 99 11/15/24 10:36 Oxygen Delivery Method Room Air 11/15/24 10:36 BMI result Body Mass Index 28.3 Const General: no acute distress and alert Nutritional Appearance: not obese Orientation/consciousness: Other orientation findings ( oriented) HEENT Head: Yes atraumatic Eyes General: appearance normal, both eyes and all related structures Sclerae: sclerae normal EOM: EOMs intact bilaterally Neck Neck: Yes supple Lymphatic: no lymphadenopathy noted Resp Effort & Inspection: normal respiratory effort and no use of accessory muscles Auscultation: clear to auscultation bilaterally Cardio Rate: regular rate Rhythm: regular rhythm Heart sounds: no gallops, no murmurs and no rubs Skin General skin exam: other ( warm) Extrem General: No clubbing, No cyanosis and No edema Assessment & Plan Assessment & Plan (1) Severe persistent asthma: Code(s): J45.50 - Severe persistent asthma, uncomplicated Category: Medical Plan: Excellent control on Xolair, Symbicort, and albuterol MDI. Continue current regimen. (2) Environmental allergies: Code(s): Z91.09 - Other allergy status, other than to drugs and biological substances Category: Medical Plan: Well controlled on Xolair and nasal ipratropium. Continue current regimen. Coding Level of Care Code Est Pt Level 4 (30522) Diagnoses Severe persistent asthma J45.50 Environmental allergies Z91.09
== END 2024-11-15 12:01 | disposition home or self-care (01) ==
LOC: HO.HPS 10:33
PROVIDERS: PCP Internal Medicine; Visit Provider Internal Medicine Pulmonary Disease
DX: J45.50 Severe persistent asthma, uncomplicated (principal); Z91.09 Other allergy status, other than to drugs and biological substances
CPT/HCPCS: 99214

== ENCOUNTER 2024-11-30 09:45 | Outpatient (REF) | payer MEDICARE, MEDICAID, SELFPAY ==
[2024-11-30 10:18] LABS: MANUAL DIFF FLAG NO
[2024-11-30 10:21] LABS: Hematocrit 36.1 % (37.0-47.0); Hemoglobin 12.0 g/dl (12.0-16.0); Imm Gran Abs Auto 0.02 X10*3/uL (0.00-0.03); Imm Gran Pct Auto 0.3 % (0.0-0.4); Lymphocytes Absolute Auto 2.2 X10*3/uL (1.2-4.9); Mean Corpuscular HGB Conc 33.2 g/dl (31.0-35.0); Mean Corpuscular Hemoglobin 29.9 pg (27.0-33.0); Mean Corpuscular Volume 89.8 fL (80.0-98.0); NRBC Abs Auto 0.000 X10*3/uL (0.0-0.012); NRBC Pct Auto 0.0 /100WBC (0.0-0.2); Platelet Count 330 X10*3/uL (160-400); Red Blood Count 4.02 X10*6/uL (4.20-5.50); White Blood Count 5.9 X10*3/uL (4.8-10.8)
--- OUTSIDE RECORDS SUMMARY | 2024-11-30 10:54 | XMS_ITS | Clinical Summary ---
Author Organization [employer] Address [address] [place] [address] Care Team Providers Care Air Defense Specialist Name Role Phone Unavailable Primary Care Provider [...] COVID-19 Vaccine ( - 2023-2 5 season) 2024 Influenza Vaccine (#1) 2024 RSV Patients and [...]
--- OUTSIDE RECORDS SUMMARY | 2024-11-30 10:54 | XMS_ITS | Patient Health Record ---
Author Organization [facility] Address [address] [place] [address] Care Team Providers Care Bellstand Attendant Name Role Phone Cheli Esqueda Primary Care [...] Problem Status W/U Status Risk Notes Problem [id number] Gastro-esophagea l reflux disease without esophagitis (K21.9) Active confirmed Plan Of Treatment Future Test Test Name Order Date UPPER GI ENDOSCOPY 01/16/2014 Insurance Providers Payer Name Payer Address Payer Phone Subscriber Number Group Number Insured Name Patient Relationship to Insured Coverage Start Date Coverage End Date [facility] [address] [address] [place], [place] [id number] [phone] [id number] BRENDA MARCUS Self - patient is the insured MEDICAID OF [facility] [address] [place] [address] [phone] [id number] BRENDA MARCUS Self - patient is the insured Medical (General) History Medical History History ICD Code diabetes mellitus asthma hypertension fibromyalgia hyperlipidemia migraines diabetic neuropathy GERD Surgical History Surgery Date(Month/Year) hysterectomy bladder suspension eyes lift
--- OUTSIDE RECORDS SUMMARY | 2024-11-30 10:54 | XMS_ITS | Encounter Summary ---
Author Organization [facility] Address [address] [place] [address] Care Team Providers Care Radiology Practitioner Assistant Name Role Phone Unavailable Primary Care Provider Unavailabl e Encounter Details Date Type Department Care Team (Latest Contact Info) Description 10/09/2018 Abstract [facility] CONVERSIONS Dental, Provider, DDS Social History [...]
[2024-11-30 11:53] LABS: Alanine Aminotransferase 20 U/L (0-31); Albumin Level 4.8 g/dL (3.5-5.0); Alkaline Phosphatase 85 U/L (39-117); Anion Gap 12 (12-20); Aspartate Amino Transferase 26 U/L (5-31); Blood Urea Nitrogen 25 mg/dL (9-16); Calcium 9.2 mg/dL (8.4-10.2); Carbon Dioxide 25 mmol/L (22-29); Chloride 111 mmol/L (96-108); Cholesterol 136 mg/dL (<200); Estimated Glomerular Filt Rate 51; HDL Cholesterol 57 mg/dL (>40); Iron 97 mcg/dL (30-160); Percent Iron Saturation 31 % (15-50); Potassium 4.4 mmol/L (3.3-5.1); Sodium 144 mmol/L (135-145); Total Iron Binding Capacity 317 mcg/dL (228-428); Total Protein 7.4 g/dL (6.5-8.0); Triglycerides 98 mg/dL (<150); Unsaturated Iron Binding 220 ug/dL
[2024-11-30 12:24] LABS: Folate 12.5 ng/mL (> or = 4.0); Vitamin B12 296 pg/mL (200-900)
[2024-11-30 14:21] LABS: Microalbum/Creatinine Ratio Ur 6.3 ug/mg cr (<30)
== END 2024-11-30 09:46 | disposition home or self-care (01) ==
LOC: HO.10HDL 09:45
PROVIDERS: Visit Provider Internal Medicine
DX: E53.8 Deficiency of other specified B group vitamins (principal); G30.0 Alzheimer's disease with early onset; F02.A3 Dementia in other diseases classified elsewhere, mild, with mood disturbance; E55.9 Vitamin D deficiency, unspecified; R80.9 Proteinuria, unspecified; D64.9 Anemia, unspecified; E78.5 Hyperlipidemia, unspecified
CPT/HCPCS: 36415; 80053; 80061; 82043; 82306; 82570; 82607; 82746; 83540; 85025

== ENCOUNTER 2024-12-12 08:53 | Outpatient (AMB) | payer MEDICARE, MEDICAID, SELFPAY ==
--- NOTE | 2024-12-12 08:55 | A.OFFPC_ITS ---
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 Accompanied by: Self / Same As Patient Allergies Iodinated Contrast Media (IV CONTRAST) Allergy (Severe, Verified 12/12/24 09:34) ANAPHYLAXIS peanut Allergy (Severe, Verified 12/12/24 09:34) CAN'T BREATHE iodine Allergy (Intermediate, Verified 12/12/24 09:34) throat swelling lisinopril (LISINOPRIL) Allergy (Intermediate, Verified 12/12/24 09:34) COUGH, coughing gadobutrol (From GADAVIST) Allergy (Mild, Verified 12/12/24 09:34) HIVES tramadol (TRAMADOL) Adverse Reaction (Severe, Verified 12/12/24 09:34) VOMITING pseudoephedrine (PSEUDOEPHEDRINE) Adverse Reaction (Intermediate, Verified 12/12/24 09:34) HEART PALPITATIONS Medication List - Last Reconciled 12/12/24 by Cheli Beebe MD acetaminophen ER (Tylenol Arthritis Pain) 650 mg PO Q8H albuterol sulfate 90 mcg/actuation inhalation amitriptyline 25 mg PO DAILY 90 days atorvastatin 80 mg PO DAILY 90 days blood pressure monitor As directed blood sugar diagnostic (FreeStyle Test strips) Use 1 test strip twice a day calcitriol 0.25 mcg PO DAILY calcium citrate-vitamin D3 315 mg-5 mcg (200 unit) (Calcium Citrate + D) 2 tabs PO DAILY 30 days cholecalciferol (vitamin D3) 50 mcg PO DAILY 90 days cyanocobalamin (vitamin B-12) 500 mcg sublingual DAILY 90 days duloxetine 30 mg PO BID 90 days epinephrine 0.3 mL IM ONCE PRN 30 days ezetimibe 10 mg PO DAILY 90 days fenofibrate 54 mg PO DAILY 90 days fluticasone propionate 50 mcg/actuation intranasal hydrochlorothiazide 25 mg PO DAILY 90 days hydrocortisone 2.5% (Proctosol HC) 1 appl SC BID-QID PRN 30 days hydroxyzine HCl 25 mg PO BID PRN ipratropium bromide 2 sprays intranasal TID PRN lancets (FreeStyle Lancets) to check blood sugars twice a day linaclotide (Linzess) 72 mcg PO DAILY losartan 25 mg PO DAILY 90 days meclizine 25 mg PO BID PRN 30 days melatonin 5 mg PO BEDTIME PRN memantine (Namenda) 10 mg PO BID 90 days metformin ER 500 mg PO BID nystatin 1 appl topical DAILY 30 days omalizumab 150 mg subcut Q4W omeprazole 40 mg PO BID 30 days ondansetron 4 mg PO DAILY PRN 30 days pregabalin 25 mg PO BID 30 days ropinirole 1 mg PO DAILY sertraline 50 mg PO DAILY 90 days sucralfate 1 g PO DAILY 90 days sumatriptan succinate take 1 tab at onset of headache; if no relief, may repeat 1 tab after at least 2 hrs; max = 2 tabs/24 hrs PO 30 days Symbicort 160-4.5 mcg/actuation (budesonide-formoterol) 2 puffs inhalation BID 30 days NS topiramate 100 mg PO BID 90 days Tobacco use date assessed: 12/12/24 Fall risk assessment: No Falls in past year Last assessed Fall Risk: 12/12/24 Dental Screening Dental Screen Date: 12/12/24 Did you have a dental visit in the last 12 months?: Yes Did you have a dental problem in the last 6 months where you did not have access to dental care?: No Was dental information given to patient?: Patient has dentist HPI HPI Comments History of Present Illness Details The patient is a 69-year-old female presenting with the management of multiple chronic conditions including diabetes, hyperlipidemia, depression, anxiety, and chronic kidney disease. The patient's diabetes is currently managed with metformin 500 mg twice daily, and her blood glucose levels are well-controlled with a recent reading of 101 mg/dL. Her hyperlipidemia is treated with atorvastatin 80 mg, and her LDL cholesterol is at 60 mg/dL, which is below the target of less than 70 mg/dL. The patient has a history of depression and anxiety, for which she is taking amitriptyline 25 mg and sertraline. She also experiences fibromyalgia, managed with duloxetine, and reports neuropathy for which she takes pregabalin. The patient has chronic kidney disease, stage 3, attributed to diabetes, with a GFR of 51 mL/min/1.73 m?. Her renal function has fluctuated over the years, previously dropping to 44 mL/min/1.73 m? and then improving to 60 mL/min/1.73 m?. Hypertension is well-controlled with hydrochlorothiazide 25 mg and losartan 25 mg, maintaining a blood pressure of 110/60 mmHg. The patient also suffers from constipation, managed with linaclotide. She experiences migraines, treated with sumatriptan and topiramate, and gastroesophageal reflux disease managed with omeprazole. Preventative care includes a recommendation for a colonoscopy every five years. [facility] Medical History Mild recurrent major depression Skin lesion Cognitive impairment Encounter for Medicare annual wellness exam Dyslipidemia Essential hypertension Diabetes mellitus B12 deficiency Non-toxic multinodular goiter Osteoporosis Post-surgical hypoparathyroidism History of primary hyperparathyroidism Surgical History Cataract S/P COLIN-BSO History of bladder suspension procedure H/O blepharoplasty Lipoma Status post fine needle aspiration S/P subtotal parathyroidectomy Family History Father CVD (cardiovascular disease) Myocardial infarct Mother Skin cancer Diabetes Renal failure Social History Housing: Apartment Alcohol intake: never Patient Tobacco Use Status: Never used Tobacco e-Cigarette/Vaping Use: Never Used Second Hand Smoke Exposure: No service: No Current occupational status: disabled Cognitive needs: Yes Hearing needs: No Vision needs: Yes Questionnaire PHQ-9 Over the last 2 weeks, how often have you been bothered by any of the following problems? 1. Little interest or pleasure in doing things: not at all 2. Feeling down, depressed, or hopeless: nearly every day 3. Trouble falling or staying asleep, or sleeping too much: several days 4. Feeling tired or having little energy: several days 5. Poor appetite or overeating: nearly every day 6. Feeling bad about yourself - or that you are a failure or have let yourself or your family down: not at all 7. Trouble concentrating on things, such as reading the newspaper or watching television: several days 8. Moving or speaking so slowly that other people could have noticed. Or the opposite - being so fidgety or restless that you have been moving around a lot more than usual: nearly every day 9. Thoughts that you would be better off or of hurting yourself in some way: not at all Total score: 12 Depression Screening Interpretation: Positive Depression Screening Follow-up: Existing condition, In treatment and Follow-up Visit Requested Depression Screening Done: Yes 38943 - PHQ-9 Billing: Yes Source: Developed by Drs. Mandeep Bernard, Renee Pitts, Dariusz King and colleagues, with an educational mohit from [employer]. Thrive Questionnaire Date Thrive assessed: 04/10/24 I am a: Patient What is your living situation today?: I choose not to answer this question Within the past 12 months, did the food you bought not last and you didn't have the money to get more?: I choose not to answer this question Within the past 12 months, did you worry whether your food would run out before you got money to buy more?: I choose not to answer this question Do you have trouble paying for medicines?: I choose not to answer this question Do you have trouble getting transportation to medical appointments?: No Do you have trouble paying your heating and electricity bill?: I choose not to answer this question Do you have trouble taking care of your child, family member or friend?: I choose not to answer this question Do you have trouble with day-to-day activities such as bathing, preparing meals, shopping, managing finances, etc.?: Yes Are you currently unemployed and looking for a job?: No Are you interested in more education?: I choose not to answer this question Please select the resources that you would like help with: None Currently or been in a relationship where the following occur: I choose not to answer THRIVE Score: 0 AUDIT C Alcohol Use Questionnaire (AUDIT-C) 1. How often do you have a drink containing alcohol?: Never Total Score: 0 Score Reviewed/Action Taken: No JUAN DANIEL-7 AMB Questionnaire JUAN DANIEL-7 Date JUAN DANIEL - 7 assessed: 04/10/24 Feeling nervous, anxious, or on edge: 3 = Nearly every day Not being able to stop or control worryin = Not at all Worrying too much about different things: 2 = More than half the days Trouble relaxin = Not at all Being so restless that it is hard to sit still: 0 = Not at all Becoming easily annoyed or irritable: 0 = Not at all Feeling afraid as if something awful might happen: 0 = Not at all Total JUAN DANIEL-7 score (0-4 normal; 5-9 mild; 10-14 moderate; 15-21 severe): 5 Source: Developed by Drs. Mandeep Bernard, Renee Pitts, Dariusz King and colleagues, with an educational mohit from [employer]. JUAN DANIEL-7 Assessment Billing JUAN DANIEL-7 Assessment Tool: JUAN DANIEL-7 Assessment 95236 Review of Systems Const All systems reviewed & are unremarkable except as noted in HPI and below Card Denies chest pain at rest, Denies chest pain with activity, Denies edema, Denies irregular heart rhythm, Denies claudication, Denies dyspnea, Denies dyspnea on exertion, Denies orthopnea, Denies paroxysmal nocturnal dyspnea and Denies slow heart rate Resp Denies cough, Denies dyspnea and Denies dyspnea on exertion GI Denies abdominal pain, Denies change in bowel habits, Denies excessive flatus, Denies nausea and Denies vomiting Neuro Denies lack of coordination Physical exam (Primary Care) Vital Signs: Last Vital Signs Temp 97.1 F 12/12/24 08:56 Pulse 85 12/12/24 08:56 Resp 18 12/12/24 08:56 BP 110/60 12/12/24 08:56 Pulse Ox 98 12/12/24 08:56 Oxygen Delivery Method Room Air 12/12/24 08:56 BMI result Body Mass Index 28.2 Tobacco/Smoking Status: Tobacco use Status Tobacco use date assessed 12/12/24 12/12/24 08:57 Patient Tobacco Use Status Never used Tobacco 12/12/24 08:56 Tobacco use type 07/13/23 09:15 e-Cigarette/Vaping Use Never Used 12/12/24 08:56 PHQ-9: PHQ-9 Score PHQ-9: Total score 12 12/12/24 10:10 Depression Screening Interpretation: Positive Depression Screening Follow-up: Existing condition, In treatment and Follow-up Visit Requested Thrive Assessment: Date of Thrive Assessment Date Thrive assessed 04/10/24 12/12/24 08:56 Currently or been in a relationship where the following occur: I choose not to answer Resp Effort & Inspection: normal respiratory effort Auscultation: clear to auscultation bilaterally Cardio Jugular venous distension: no JVD Rate: regular rate Rhythm: regular rhythm Heart sounds: S1 normal heart sound present and S2 normal heart sound present Results AMB Hemoglobin A1c AMB Hemoglobin A1c 5.9 % Last Edit by DAVID Rojas on 12/12/24 09 :16 Immunizations Tenivac (PF) 5 Lf unit-2 Lf unit/0.5 mL intramuscular syringe Performing Provider: Cheli Beebe MD Performing Location: [facility] [place] [facility] Administered by: Lorraine Simental RN on 12/12/24 10:11 Dose Route Admin Location Dispensed Lot Number Expiration Date NDC Press Set Up 0.5 mL IM Left Deltoid 0.5 mL [id number] 07/18/26 12048-815-62 [employer] Total Dispensed Waste 0.5 mL 0 % VIS Given Date VIS Provided VIS Publication Date 12/12/24 Single Vaccine 20 Eligibility Eligibility Date Funding Source Not [facility] Eligible 12/12/24 Private Results Reviewed Results Reviewed: Laboratory Last Values Hgb A1c (Clinic) 5.9 % (4.0-6.0) 12/12/24 09:02 Coding Level of Care Code Est Pt Level 4 (20072) Diagnoses Mild recurrent major depression F33.0 Essential hypertension I10 Dyslipidemia E78.5 Type 2 diabetes mellitus without complication, without long-term current use of insulin E11.9 Diabetes mellitus type: type 2 Diabetes mellitus ferry terminal agent insulin use: without ferry terminal agent use Diabetes mellitus complication status: without complication Fibromyalgia M79.7 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 G30.0; F02.A3 Dementia type: Alzheimer's Alzheimer's disease onset: early onset Dementia severity: mild Dementia behavioral or psychological symptom: with mood disturbance Additional Codes JUAN DANIEL-7 Assessment Billing - JUAN DANIEL-7 Assessment Tool: JUAN DANIEL-7 Assessment [id number] ([id number]) PHQ-9 - 86075 - PHQ-9 Billing: Yes ([id number]) Time Spent (min) 23 Assessment & Plan Assessment & Plan (1) Mild recurrent major depression: Code(s): F33.0 - Major depressive disorder, recurrent, mild Category: Medical (2) Essential hypertension: Code(s): I10 - Essential (primary) hypertension Category: Medical (3) Dyslipidemia: Code(s): E78.5 - Hyperlipidemia, unspecified Category: Medical (4) Diabetes mellitus: Code(s): E11.9 - Type 2 diabetes mellitus without complications Category: Medical Qualifiers: Diabetes mellitus type: type 2 Diabetes mellitus prison insulin use: without prison use Diabetes mellitus complication status: without complication Qualified Code(s): E11.9 - Type 2 diabetes mellitus without complications (5) Fibromyalgia: Code(s): M79.7 - Fibromyalgia Category: Medical (6) Dementia: Code(s): F03.90 - Unspecified dementia, unspecified severity, without behavioral disturbance, psychotic disturbance, mood disturbance, and anxiety Category: Medical Qualifiers: Dementia type: Alzheimer's Alzheimer's disease onset: early onset Dementia severity: mild Dementia behavioral or psychological symptom: with mood disturbance Qualified Code(s): G30.0 - Alzheimer's disease with early onset; F02.A3 - Dementia in other diseases classified elsewhere, mild, with mood disturbance Plan Plan Patient was informed and verbally consented to the use of an ambient scribe for clinic note documentation during this visit. 1. Diabetes Mellitus The patient's diabetes is managed with metformin 500 mg twice daily, maintaining good glycemic control with a recent blood glucose level of 101 mg/dL. 2. Hyperlipidemia Hyperlipidemia is treated with atorvastatin 80 mg, achieving an LDL cholesterol level of 60 mg/dL, which is below the target of less than 70 mg/dL. 3. Depression Depression is managed with amitriptyline 25 mg and sertraline, with ongoing monitoring of symptoms. 4. Chronic Kidney Disease, Stage 3 Chronic kidney disease, stage 3, is attributed to diabetes, with a GFR of 51 mL/min/1.73 m?. Monitoring of renal function is advised, and the patient is cautioned against excessive use of NSAIDs. 5. Hypertension Hypertension is well-controlled with hydrochlorothiazide 25 mg and losartan 25 mg, maintaining a blood pressure of 110/60 mmHg. 6. Migraine Migraines are treated with sumatriptan and topiramate, with symptom management as needed. 7. Gastroesophageal Reflux Disease Gastroesophageal reflux disease is managed with omeprazole, with consideration for switching to pantoprazole for better symptom control. 8. Preventative Care Preventative care includes a recommendation for a colonoscopy every five years to monitor for colorectal health. Orders: Orders AMB Hemoglobin A1c Today Z13.9 - Encounter for screening, unspecified Microalbumin, Random (w Creat) 4 Months R80.9 - Proteinuria, unspecified Vitamin B12 and Folate 4 Months E53.8 - Deficiency of other specified B group vitamins Vitamin D 25-OH Total 4 Months E55.9 - Vitamin D deficiency, unspecified Comprehensive [place]. Panel Fast 4 Months E11.9 - Type 2 diabetes mellitus without complications Lipid Panel 4 Months E78.5 - Hyperlipidemia, unspecified Td Immunization Today Z23 - Encounter for immunization Referrals Gastroenterology Referral K21.9 - Gastro-esophageal reflux disease without esophagitis Medications: New pantoprazole 40 mg PO DAILY 90 tabs 1RF 90 days Refilled pregabalin 25 mg PO BID 60 caps 0RF 30 days cyanocobalamin (vitamin B-12) 500 mcg sublingual DAILY 90 tabs 1RF 90 days E53.8 - Deficiency of other specified B group vitamins Discontinued omeprazole Discontinued Reason: Patient Completed Course 40 mg PO BID 30 days 60 caps 6RF fenofibrate Discontinued Reason: Patient Completed Course 54 mg PO DAILY 90 days 90 tabs 1RF
[2024-12-12 08:56] VITALS: BP 110/60; PULSE 85; RESP 18; TEMP 36.2; O2SAT 98; BMI 28.2
--- OUTSIDE RECORDS SUMMARY | 2024-12-12 10:27 | XMS_ITS | Data Portability ---
Author Organization [place] - [facility], Allergy Address [address] [address] Care Team Providers Care Physicist Acoustics Name Role Phone LORNA KUHN Referring Provider Assessment Encounter Date Assessment Date Assessment LastModified by Organization Details LastModified Time 09/20/2024 09/20/2024 68yo female presents for evaluation of the ears and hearing. Otologic exam demonstrates TMs are intact with well-aerated middle ear spaces. Audiogram shows mild sloping to moderate neurosensory hearing loss with excellent word recognition. Tympanometry is normal. Patient is medically cleared for amplification bilaterally. Recommend annual follow up with repeat audiometric testing, or sooner with any concerns. Today we discussed the pathophysiology of tinnitus and the absence of consistently successful pharmacologic treatments. Recommend masking strategies to decrease awareness of the tinnitus, including using a white noise machine, [employer] tinnitus baljinder, music, or television.We discussed how exposure to loud noise can worsen tinnitus so I recommended hearing protection. We also discussed other ways to potentially help reduce awareness of tinnitus including avoidance of caffeine, salty meals and NSAIDs. We discussed that amplification would not only help with hearing, but can also be instrumental in acting as a masking source to help reduce the awareness of tinnitus. Patient with recent history of episodic positionally induced vertigo. Senia-Hallpike was negative for vertigo and rotary nystagmus. We discussed that the patient s previous pattern of symptoms are most consistent with benign paroxysmal positional vertigo (BPPV). The pathophysiology of BPPV was discussed in detail. Will refer to physical therapist knowledgeable with performance of Branden maneuvers and vestibular therapy for further evaluation. Patient requests going to [facility] for intervention. [email or web address] Not available 09/20/2024 12:01:43 Plan of Treatment Reminders Order Date Submit Date Provider Last Modified By Organization Details Last Modified Time Details Appointments None recorded . Lab None recorded . Referral vestibul ar therapy referral 2024 025 [facility], [address], [address], [place], [address], 12:30:52 Procedures None recorded . Surgeries None recorded . Imaging None recorded . Medication Orders None recorded . Patient TargetsNo targets recorded. Patient InstructionsNo instructions recorded. Reason for Referral Vestibular Therapy Referral for Benign paroxysmal positional vertigo Referring Physician: Jazmine Klein, Otolaryngology, Encounter Date: 09/20/2024 Results Created Date Observation Date Name Description Value Unit Range Abnormal Flag Note LastModifiedBy Organization Detail LastModifiedTime 09/21/19 25 audio gram No observ ation record ed. BARCODE Not Available 2024 17:53:20 Result Notes None recorded. Problems Name Problem SNOMED Code Status Onset Date Resolution Date Notes Provider Name and Address Organization Details Recorded Time Sensorineur al hearing loss of bilateral ears 654484851 Active 2024 FLORENCIA RENNER [address], [phone], [facility] - [facility] 10:24:40 Benign paroxysmal positional vertigo 194310005 Active 2024 JAZMINE KLEIN PA-C [address] [place] [address], [phone], [facility] 11:17:39 Bilateral tinnitus 9911478047480 Active 2024 JAZMINE KLEIN PA-C [address], [phone], [facility] - [facility] 11:19:32 Problem Notes None recorded. Procedures Surgical History Date Name Laterality Status Provider Name and Address Organization Details Recorded Time Comp Audio with Tymps - 50441 & 20522 completed FLORENCIA RENNER 100 [facility],[place] [address], [place], [address], [place] - [facility] 09/20/2024 10:24:36 operation on breast completed JAZMINE KLEIN PA-C 100 [facility], [place], [address], [facility] - [facility] 09/20/2024 10:56:31 Imaging Results None recorded. Procedure Notes None recorded. Medical Equipment None Reported. Medications Name Sig Start Date Stop Date Status Note LastModified by Organization Details LastModified Time amoxicillin 500 mg capsule TAKE 1 CAPSULE BY MOUTH THREE TIMES DAILY FOR 7 DAYS 09/20 completed Not Available Not Available Not Available atorvastati n 80 mg tablet TAKE 1 TABLET BY MOUTH DAILY active Not Available Not Available No t Available cetirizine 10 mg tablet TAKE 1 TABLET BY MOUTH DAILY NEEDED 09/20 completed Not Available Not Available Not Available ketotifen 0.025 % (0.035 %) eye drops INSTILL 1 DROP INTO BOTH EYES TWICE DAILY active Not Available Not Available No t Available sumatriptan 100 mg tablet TAKE 1 TABLET BY MOUTH ONSET OF MIGRAINE EVERY 4 HOURS UP TO TWICE DAILY FOR 30 DAYS 09/20 completed Not Available Not Available Not Available ondansetron HCl 4 mg tablet TAKE 1 TABLET BY MOUTH TWICE DAILY NEEDED FOR NAUSEA OR VOMITING active Not Available Not Available No t Available omeprazole 40 mg capsule,del ayed release TAKE 1 CAPSULE BY MOUTH TWICE DAILY active Not Available Not Available No t Available amitriptyli ne 25 mg tablet TAKE 2 TABLETS BY MOUTH DAILY AT BEDTIME 09/20 completed Not Available Not Available Not Available meclizine 25 mg tablet TAKE 1 TABLET BY MOUTH DAILY NEEDED FOR DIZZINESS active Not Available Not Available No t Available losartan 25 mg tablet TAKE 1 TABLET BY MOUTH DAILY active Not Available Not Available No t Available sertraline 25 mg tablet TAKE 1 TABLET BY MOUTH DAILY active Not Available Not Available No t Available hydrochloro thiazide 25 mg tablet TAKE 1 TABLET BY MOUTH DAILY 09/20 completed Not Available Not Available Not Available epinephrine 0.3 mg/0.3 mL injection, auto-inject or ADMINISTE R 0.3 ML IN THE MUSCLE 1 TIME NEEDED FOR ANAPHYLAX IS 09/20 completed Not Available Not Available Not Available ipratropium bromide 42 mcg (0.06 %) nasal spray USE 1 TO 2 SPRAYS IN EACH NOSTRIL UP TO THREE TIMES DAILY NEEDED FOR RUNNY NOSE OR POST NASAL DRIP 09/20 completed Not Available Not Available Not Available topiramate 100 mg tablet TAKE 1 TABLET BY MOUTH TWICE DAILY 09/20 completed Not Available Not Available Not Available metformin ER 500 mg tablet,exte nded release 24 hr TAKE 1 TABLET BY MOUTH TWICE DAILY active Not Available Not Available No t Available sertraline 50 mg tablet TAKE 1 TABLET BY MOUTH DAILY active Not Available Not Available No t Available calcitriol 0.25 mcg capsule TAKE 1 CAPSULE BY MOUTH DAILY 09/20 completed Not Available Not Available Not Available hydroxyzine pamoate 25 mg capsule TAKE 1 CAPSULE BY MOUTH DAILY AT BEDTIME NEEDED 09/20 completed Not Available Not Available Not Available meclizine 25 mg chewable tablet CHEW AND SWALLOW ONE TABLET AT BEDTIME FOR 7 DAYS AND THEN TWICE DAILY NEEDED 09/20 completed Not Available Not Available Not Available ezetimibe 10 mg tablet TAKE 1 TABLET BY MOUTH DAILY active Not Available Not Available No t Available memantine 10 mg tablet TAKE 1 TABLET BY MOUTH TWICE DAILY active Not Available Not Available No t Available memantine 5 mg tablet TAKE 1 TABLET BY MOUTH TWICE DAILY active Not Available Not Available No t Available calcium 315 mg (as citrate)-vi tamin D3 5 mcg (200 unit) tablet TABLET 2 TABLETS BY MOUTH DAILY active Not Available Not Available No t Available duloxetine 30 mg capsule,del ayed release TAKE ONE CAPSULE BY MOUTH TWICE DAILY active Not Available Not Available No t Available pregabalin 25 mg capsule TAKE 1 CAPSULE BY MOUTH TWICE DAILY active Not Available Not Available No t Available FreeStyle Lite Strips USE TO CHECK BLOOD SUGAR TWICE DAILY active Not Available Not Available No t Available cholecalcif michael (vitamin D3) 50 mcg (2,000 unit) capsule TAKE 1 CAPSULE BY MOUTH DAILY active Not Available Not Available No t Available fenofibrate 54 mg tablet TAKE 1 TABLET BY MOUTH DAILY 09/20 completed Not Available Not Available Not Available BinaxNOW COVID-19 Ag Self Test kit TEST DIRECTED TODAY 09/20 completed Not Available Not Available Not Available Vitals Date Recorded Body height Body mass index (BMI) Body weight Provider Name and Address Organization Details Last Updated DateTime 09/20/2024 154.94 cm 27.6 kg/m2 89811.49 g Sylvia Zavala [place] - [facility] 09/20/2024 10:38:39 Social History None recorded. Functional Status None recorded. Mental Status None recorded. Family History Nothing Reported. Medical History Condition Response Fibromyalgia Y Dementia Y Gynecological HistoryNo gynecological history recorded. Obstetrics History GPAL:G 0 P 0 0 0 0 Past Encounters Encounter ID Performer Location Encounter Start Date Encounter Closed Date Diagnosis/Indication Diagnosis SNOMED-CT Code Diagnosis ICD10 Code Diagnosis IMO Codes Diagnosis Note [id number] JAZMINE KLEIN PA-C [facility] [address] [address] 09/20/2024 09:52:58 09/20/2024 12:07:11 Benign paroxysmal positional vertigo 910340853 H81.13 51710453 Bilateral tinnitus 24504 96264 102 H93.13 371427 Sensorineu ral hearing loss of bilateral ears 527729023 H90.3 95396977 Audiologic al evaluation results:Ri ght ear:Mild sloping to a moderate sensorineu ral hearing loss with excellent word recognitio n.Left ear:Mild sloping to a moderate sensorineu ral hearing loss with excellent word recognitio n.Tympanom etry:Right Ear: Type ALeft Ear: Type A [id number] FLORENCIA RENNER [facility] [address] [address] 09/20/2024 09:53:10 09/20/2024 10:48:35 Sensorineural hearing loss of bilateral ears 884011924 H90.3 [id number] Audiologic al evaluation results: Right ear: Mild sloping to a moderate sensorineu ral hearing loss with excellent word recognitio n. Left ear: Mild sloping to a moderate sensorineu ral hearing loss with excellent word recognitio n. Tympanomet ry: Right Ear:Type A Left Ear:Type A Health Concerns Section Related Observation LastModified by Organization Detai ls LastModified Time None Recorded Concern Status LastModified by Organization Details LastModified Time None Recorded Advance Directives Directive None Recorded Payers Insurance Date Sequence Insurance Name Policy Number Policy Barton Covered Member ID Barton Member ID Guarantor Name 09/20/2024 1 [place] [employer] Laura Hughes [id number] Laura Saul 09/20/2024 2 [place] [facility] Laura Hughes [id number] Laura Hughes Notes Date Note Type Note Provider Name and Address Organization Details Recorded Time 09/20/2024 text/html ROS as noted in the HPI 68yo female presents for evaluation the ears and hearing. She reports excessive whistling or glass clicking noise in the ears, making it difficult to decipher words. This started many years ago and has become constant in the past 2-3 years. Denies prior ear infections or ear surgeries. No history of loud noise exposure. Patient endorses unsteadiness and room-spinning vertigo. This is triggered by standing up. Endorses associated difficulty walking straight line, often feels like she is veering and runs into wall. History of ataxia. JAZMINE KLEIN PA-C [address] [place] [address], [phone], [facility] - [facility] 09/20/2024 12:03:07 OBGyn Episode No OBEpisode recorded.
--- OUTSIDE RECORDS SUMMARY | 2024-12-12 10:27 | XMS_ITS | Patient Health Record ---
Author Organization [facility] Address [address] [place] [address] Care Team Providers Care Immigration Guard Name Role Phone Cheli Esqueda Primary Care [...] Problem Status W/U Status Risk Notes Problem [id number] Gastro-esophagea l reflux disease without esophagitis (K21.9) Active confirmed Plan Of Treatment Future Test Test Name Order Date UPPER GI ENDOSCOPY 01/16/2014 Insurance Providers Payer Name Payer Address Payer Phone Subscriber Number Group Number Insured Name Patient Relationship to Insured Coverage Start Date Coverage End Date [facility] [address] [address] [place], [place] [phone] [id number] BRENDA MARCUS Self - patient is the insured MEDICAID OF [facility] [address] [place] [address] [phone] [id number] BRENDA MARCUS Self - patient is the insured Medical (General) History Medical History History ICD Code diabetes mellitus asthma hypertension fibromyalgia hyperlipidemia migraines diabetic neuropathy GERD Surgical History Surgery Date(Month/Year) hysterectomy bladder suspension eyes lift
--- OUTSIDE RECORDS SUMMARY | 2024-12-12 10:27 | XMS_ITS | Encounter Summary ---
Author Organization [facility] Address [address] [place] [address] Care Team Providers Care Nurse Recruiter Name Role Phone Unavailable Primary Care Provider Unavailabl e Encounter Details Date Type Department Care Team (Latest Contact Info) Description 10/09/2018 Abstract [facility] CONVERSIONS Dental, Provider, DDS Social History Tobacco [...]
--- OUTSIDE RECORDS SUMMARY | 2024-12-12 10:27 | XMS_ITS | Clinical Summary ---
Author Organization [employer] Address [address] [facility] [address] [place] [address] Care Team Providers Care Director Of Accounting Name Role Phone Unavailable Primary Care Provider [...]
== END 2024-12-12 10:14 | disposition home or self-care (01) ==
LOC: HO.HMCH 08:53
PROVIDERS: PCP Internal Medicine; Visit Provider Internal Medicine
DX: E11.69 Type 2 diabetes mellitus with other specified complication (principal); G30.0 Alzheimer's disease with early onset; F02.A3 Dementia in other diseases classified elsewhere, mild, with mood disturbance; F33.0 Major depressive disorder, recurrent, mild; I10 Essential (primary) hypertension; E78.5 Hyperlipidemia, unspecified; M79.7 Fibromyalgia; Z23 Encounter for immunization

== ENCOUNTER → 2024-12-12 08:53 | Outpatient (BNVA) | payer MEDICARE, MEDICAID, SELFPAY | PROVIDERS: PCP Internal Medicine; Visit Provider Internal Medicine | DX: Z23 Encounter for immunization (principal); F33.0 Major depressive disorder, recurrent, mild; E78.5 Hyperlipidemia, unspecified; I10 Essential (primary) hypertension; E11.9 Type 2 diabetes mellitus without complications; M79.7 Fibromyalgia; G30.0 Alzheimer's disease with early onset; F02.A3 Dementia in other diseases classified elsewhere, mild, with mood disturbance | CPT/HCPCS: 83036; 90471; 90714; 96127; 99212 ==

== ENCOUNTER 2025-02-12 10:40 | Outpatient (AMB) | payer MEDICARE, MEDICAID, SELFPAY ==
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
--- OUTSIDE RECORDS SUMMARY | 2025-02-12 13:43 | XMS_ITS | Data Portability ---
Author Organization [place] - [facility], Allergy Address [address] [address] Care Team Providers Care Sole Dyer Name Role Phone LORNA KUHN Referring Provider [phone] Assessment Encounter Date Assessment Date Assessment LastModified [...] tinnitus, including using a white noise machine, [employer] tinnitus baljinder, music, or television.We discussed how [...] for further evaluation. Patient requests going to [facility] for intervention. mbsanna Not available 09/20/2024 12:01:43 Plan of Treatment Reminders Order Date Submit Date Provider Last Modified By Organization Details Last Modified Time Details Appointments None recorded . Lab None recorded . Referral vestibul ar therapy referral 2024 025 [facility], [address], [address], [place], [address], 12:30:52 Procedures None recorded . Surgeries None [...] Sensorineur al hearing loss of bilateral ears [id number] Active 2024 FLORENCIA RENNER [address], [address], [facility] - [facility] 10:24:40 Benign paroxysmal positional vertigo 271085645 Active 2024 JAZMINE KLEIN PA-C [address] [place] [address], [phone], [facility] 11:17:39 Bilateral tinnitus [id number] Active 2024 JAZMINE KLEIN PA-C [address], [address], [facility] - [facility] 11:19:32 Problem Notes None recorded. Procedures Surgical History Date Name Laterality Status Provider Name and Address Organization Details Recorded Time Comp Audio with Tymps - 95208 & 92526 completed FLORENCIA RENNER 100 [facility],[place] [address], [place], [address], [place] - [facility] [place] 09/20/2024 10:24:36 operation on breast completed JAZMINE KLEIN PA-C 100 [facility] 100, [place], [address], [facility] - [facility] 09/20/2024 10:56:31 Imaging Results None [...] Updated DateTime 09/20/2024 154.94 cm 27.6 kg/m2 89978.49 g Sylvia Zavala [place] - [facility] 09/20/2024 10:38:39 Social History None [...] ICD10 Code Diagnosis IMO Codes Diagnosis Note [id number] JAZMINE KLEIN PA-C [facility] [address] [address] 09/20/2024 09:52:58 09/20/2024 12:07:11 Benign paroxysmal positional vertigo 025813069 H81.13 [id number] Bilateral tinnitus 37811 71340 102 H93.13 959742 Sensorineu ral hearing loss of bilateral ears 236409082 H90.3 [id number] Audiologic al evaluation results:Ri ght ear:Mild sloping to a moderate sensorineu ral hearing loss with excellent word recognitio n.Left ear:Mild sloping to a moderate sensorineu ral hearing loss with excellent word recognitio n.Tympanom etry:Right Ear: Type ALeft Ear: Type A [id number] FLORENCIA RENNER [facility] [address] [address] 09/20/2024 09:53:10 09/20/2024 10:48:35 Sensorineural hearing loss of bilateral ears 936012544 H90.3 [id number] Audiologic al evaluation results: Right ear: Mild [...] ID Guarantor Name 09/20/2024 1 [place] B[place] [employer] Laura Hughes [id number] Laura Saul 09/20/2024 2 [place] [facility] Laura Hughes [id number] Laura Hughes Notes Date Note Type Note [...] wall. History of ataxia. JAZMINE KLEIN PA-C [address] [place] [address], [phone], [facility] - [facility] 09/20/2024 12:03:07 OBGyn Episode No OBEpisode recorded.
== END 2025-02-12 11:04 | disposition home or self-care (01) ==
LOC: HO.HSM 10:41
PROVIDERS: PCP Internal Medicine; Visit Provider Registered Nurse
DX: G30.0 Alzheimer's disease with early onset (principal); F02.A3 Dementia in other diseases classified elsewhere, mild, with mood disturbance; G43.909 Migraine, unspecified, not intractable, without status migrainosus; G47.00 Insomnia, unspecified; R27.0 Ataxia, unspecified; M79.7 Fibromyalgia
CPT/HCPCS: 99214

== ENCOUNTER → 2025-02-12 10:40 | Outpatient (BNVA) | payer MEDICARE, MEDICAID, SELFPAY | PROVIDERS: PCP Internal Medicine; Visit Provider Registered Nurse | DX: G30.0 Alzheimer's disease with early onset (principal); G43.909 Migraine, unspecified, not intractable, without status migrainosus; F02.A3 Dementia in other diseases classified elsewhere, mild, with mood disturbance; G47.00 Insomnia, unspecified; R27.0 Ataxia, unspecified; M79.7 Fibromyalgia | CPT/HCPCS: 99212 ==

== ENCOUNTER 2025-03-08 10:27 | Outpatient (REF) | payer MEDICARE, MEDICAID, SELFPAY ==
--- NOTE | ~2025-03-08 | MM_ITS ---
EXAMINATION: MM SCREENING DIGITAL BREAST TOMOSYNTHESIS, BILATERAL CLINICAL INFORMATION: Screening. Asymptomatic. COMPARISON: Mammography: Comparison is made with available priors TECHNIQUE: Digital breast mammography with tomosynthesis is performed in both the craniocaudal and mediolateral oblique views along with computer-aided detection (CAD). FINDINGS: There are scattered areas of fibroglandular density. There are no significant masses, abnormal calcifications, or other abnormalities. MM/MM tomosynthesis screening BI IMPRESSION: No mammographic evidence of malignancy. ASSESSMENT: BI-RADS Category 1: Negative RECOMMENDATION: Routine annual mammography screening. 1 year F/U This examination should not preclude the clinical evaluation of a suspicious palpable abnormality. This patient's information was entered into a reminder system with a target due date for their next mammogram. Electronically signed by: Laura Gonzalez DO 03/11/2025 11:28 AM ANDREE
--- OUTSIDE RECORDS SUMMARY | 2025-03-08 11:59 | XMS_ITS | Encounter Summary ---
Author Organization [facility] Address [address] [facility] 7[address] [place] [address] Care Team Providers Care Global Supply Chain Vice President Name Role Phone Unavailable Primary Care Provider Unavailabl e Encounter Details Date Type Department Care Team (Latest Contact Info) Description 10/09/2018 Abstract [facility] CONVERSIONS Dental, Provider, DDS Social History Tobacco [...]
--- OUTSIDE RECORDS SUMMARY | 2025-03-08 11:59 | XMS_ITS | Clinical Summary ---
Author Organization [facility] [employer] Address [address] [facility] 7[address] [place] [address] Care Team Providers Care Tai Chi Instructor Name Role Phone Unavailable Primary Care Provider [...] of 2) 2004 COVID-19 Vaccine ( - 2024-2 6 season) 2024 Influenza Vaccine (#1) 2024 RSV [...]
--- OUTSIDE RECORDS SUMMARY | 2025-03-08 11:59 | XMS_ITS | Clinical Summary ---
Author Organization [address] [facility] Address [address] [place] [address] Phone Care Team Providers Care Multi Disciplined Language Analyst Name Role Phone Cheli Beebe MD Primary Care Provider [phone] Social History Tobacco Use Types Packs/Day Years Used Date Smoking Tobacco: Never Assessed Comments Unknown Sex and Gender Information Value Date Recorded Sex Assigned at Not on file Legal Sex Female 2:33 PM EST Gender Identity Not on file Sexual Orientation Not on file Plan of Treatment Upcoming Encounters Date Type Department Care Team ([facility] Contact Info) Description 05/28/2025 8:00 AM EDT Consult Gastroenterology - [address] [facility] [address] [facility] [address] [place] [address] Anastasia Moody, TIMOTEO [address] [address] Health Maintenance Due Date Last Done Comments Breast Cancer Screening 1955 Colorectal Cancer Screening: Colonoscopy 1955 DTaP,Tdap,and Td Vaccines (1 - Tdap) 1973 Pneumococcal Vaccine: 50+ Ye ars (1 of 1 - PCV) 2004 Zoster Vaccines (1 of 2) 2004 Falls Risk Assessment 10/18/2023 Hepatitis C Screening 10/18/2023 Medicare Annual Wellness Visit 10/18/2023 Osteoporosis Screening (Bone Density Screening) 10/18/2023 Social Influencers of Health Screening 10/18/2023 Depression Screening 03/21/2024 COVID-19 Vaccine (1 - 2024-2 6 season) 2024 Influenza Vaccine (#1) 2024 RSV Immunization Adult Patie nts (1 - 1-dose 75+ series) 2029 HIB [...] on patient's age to complete this topic MMR Vaccines Aged Out No longer eligi ble based on patient's age to complete this topic Meningococcal ACWY Vaccine Aged Out N o longer eligible based on patient's age to complete this topic Meningococcal B Vaccine Aged Out No l onger eligible based on patient's age to complete this topic RSV Immunization Patients Un thaddeus 20 months Aged Out No longer eligible b ased on patient's age to complete this topic Varicella Vaccines Aged Out No longer eligible based on patient's age to complete this topic Insurance MEDICARE [place]ICAID - [place] Advance Directives Documents on File Type Date Recorded 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
--- OUTSIDE RECORDS SUMMARY | 2025-03-08 11:59 | XMS_ITS | Patient Health Record ---
Author Organization [facility] Address [address] [place] [address] Care Team Providers Care Moving Van Driver Name Role Phone Cheli Esqueda Primary Care Provider UnavailBranden Leonard Jr Unavailable Allergies Allergen (clinical drug ingredient) Drug/Non Drug Allergy documented on EMR Reaction Allergy Type Onset Date Status Iodine Unknown Drug Allergy Active Pseudophed-Chlophedi an ol-GG Unknown Drug Allergy Active Reason For Referral No Information Medications Medication SIG (Take, Route, Frequency, Duration) Notes Start Date End Date Status Gabapentin 600 MG Tablet 1 tablet Orally Three times a day Active Topiramate 50 MG Tablet 1 tablet at bedt america Orally Once a day Active Simethicone 125 MG Tablet Chewable 1 tablet as needed Orally Four times a day Active metFORMIN HCl 500 MG Tablet 1 tablet with meals Orally Twice a day Active ZyrTEC Allergy 10 MG Tablet 1 tablet Orally Once a day A ctive Cymbalta 60 MG Capsule Delayed Release Particles 1 capsule Orally Once a day Active Pravastatin Sodium 10 MG Tablet 1 tablet Orally Once a day A ctive Mirapex 0.25 MG Tablet 1 tablet before b edtime Orally Once a day Active Fluticasone Furoate 27.5 MCG/SPRAY Suspension 1 puff in each nostril Nasally Once a day Active hydrOXYzine HCl 50 MG/ML Solution Intramuscular Active Losartan Potassium 25 MG Tablet 1 tablet Orally Once a day A ctive Meclizine HCl 25 MG Tablet 1 tablet as needed Orally Once a day Active Fosamax 70 MG Tablet 1 tablet Orally Active Prevacid 30 MG Capsule Delayed Release 1 capsule before a meal Orally Twice a day 01/16/2014 Active Zantac 300 MG Tablet 1 tablet at bedtime Orally Once a day Active Social History Social History Additional Details Category Social Info Options Details Miscellaneous: Marital status: Occupation: disabled Problems Problem Type SNOMED Code ICD Code Onset Dates Problem Status W/U Status Risk Notes Problem Gastro-esophagea l reflux disease without esophagitis ([id number]) Gastro-esophage al reflux disease without esophagitis (K21.9) Active confirmed Plan Of Treatment Future Test Test Name Order Date UPPER GI ENDOSCOPY 01/16/2014 Insurance Providers Payer Name Payer Address Payer Phone Subscriber Number Group Number Insured Name Patient Relationship to Insured Coverage Start Date Coverage End Date [facility] [address] [address] [place], [place] [phone] [id number] BRENDA MARCUS Self - patient is the insured MEDICAID OF [facility] [address] [place] [address] [id number] BRENDA MARCUS Self - patient is the insured Medical (General) History Medical History History ICD Code diabetes mellitus asthma hypertension fibromyalgia hyperlipidemia migraines diabetic neuropathy GERD Surgical History Surgery Date(Month/Year) hysterectomy bladder suspension eyes lift
== END 2025-03-08 10:28 | disposition home or self-care (01) ==
LOC: HO.MAMMO 10:27
PROVIDERS: PCP Internal Medicine; Visit Provider Internal Medicine
DX: Z12.31 Encounter for screening mammogram for malignant neoplasm of breast (principal)
CPT/HCPCS: 77063; 77067

== ENCOUNTER → 2025-03-08 10:30 | Outpatient (BNV) | payer MEDICARE, MEDICAID, SELFPAY | PROVIDERS: PCP Internal Medicine; Visit Provider Internal Medicine | DX: Z12.31 Encounter for screening mammogram for malignant neoplasm of breast (principal) | CPT/HCPCS: 77063; 77067 ==